=== PATIENT | female | born 1945 | race Asian ===

== ENCOUNTER → 2016-04-27 | Outpatient (CLI) | payer MEDICARE, MEDICAID ==
[~2016-04-27] MED LIST: ALL100T PO; AML5T PO; ATOR40TA52 PO; CYCL1TAB18 PO; DICL-164 PO; GABA-494 PO; HYDR-2601 PO; LOSA100T27 PO; METO-169 PO; OMEP20CA5 OR; TRAM100T19 PO
[2016-04-27 11:25] LABS: Basophils # (auto) 0 uL; Basophils % (auto) 0.7 % (0.0-2.0); Eosinophils # (auto) 0.1 uL; Eosinophils % (auto) 1.1 % (0.0-7.0); Hematocrit 33.4 % (36.0-46.0); Lymphocytes # (auto) 1.8 uL; Lymphocytes % (auto) 31.5 % (10.0-50.0); Mean Corpuscular Hemoglobin 30.8 pg (28.0-32.0); Mean Corpuscular Hgb Conc. 32.9 g/dL (32.0-36.0); Mean Corpuscular Volume 93.7 fL (80.0-100.0); Mean Platelet Volume 7.5 fL (7.4-10.4); Monocytes # (auto) 0.4 uL; Monocytes % (auto) 6.8 % (0.0-12.0); Neutrophils # (auto) 3.4 uL; Neutrophils % (auto) 59.9 % (37.0-80.0); Platelet Count (auto) 373 10^3/uL (140-450); Red Cell Distribution Width 13.6 % (11.6-16.0); SUSPECT VIEW TRANSMISSION; White Blood Cell 5.6 10^3/uL (4.4-10.8)
[2016-04-27 11:49] LABS: INR 1.04 (0.9-1.15); Partial Thromboplastin Time 30.1 sec (22.64-33.71); Prothrombin Time 10.7 sec (9.37-12.3)
[2016-04-27 11:52] LABS: Albumin 3.2 g/dL (3.4-5.0); BUN/Creatinine Ratio 44.4; Bilirubin, Total 0.2 mg/dL (0.2-1.0); Calcium 9.1 mg/dL (8.5-10.1); Potassium 3.6 mmol/L (3.5-5.1); Total Protein 8.8 g/dL (6.4-8.2)
== END | disposition home or self-care (01) ==
LOC: LAB 10:40
DX: Z01.812 Encounter for preprocedural laboratory examination (principal)
CPT/HCPCS: 36415; 80053; 85025; 85610; 85730

== ENCOUNTER → 2016-05-21 | Outpatient (CLI) | payer MEDICARE, MEDICAID ==
[2016-05-21 14:53] LABS: Basophils # (auto) 0 uL; Basophils % (auto) 0.5 % (0.0-2.0); Eosinophils # (auto) 0.1 uL; Eosinophils % (auto) 1.9 % (0.0-7.0); Hematocrit 25.2 % (36.0-46.0); Hemoglobin 8.5 g/dL (12.2-16.2); Lymphocytes # (auto) 1.8 uL; Mean Corpuscular Hemoglobin 31.8 pg (28.0-32.0); Mean Corpuscular Hgb Conc. 33.7 g/dL (32.0-36.0); Mean Corpuscular Volume 94.3 fL (80.0-100.0); Mean Platelet Volume 7.8 fL (7.4-10.4); Monocytes # (auto) 0.5 uL; Monocytes % (auto) 7.6 % (0.0-12.0); Neutrophils # (auto) 4.1 uL; Platelet Count (auto) 457 10^3/uL (140-450); Red Cell Distribution Width 14.8 % (11.6-16.0); White Blood Cell 6.6 10^3/uL (4.4-10.8)
[2016-05-21 14:58] LABS: Partial Thromboplastin Time 43.2 sec (22.64-33.71)
[2016-05-21 15:34] LABS: INR 2.6 (0.9-1.15); Prothrombin Time 26.8 sec (9.37-12.3)
== END | disposition home or self-care (01) ==
LOC: LAB 12:55
DX: Z79.01 Long term (current) use of anticoagulants (principal); Z96.659 Presence of unspecified artificial knee joint
CPT/HCPCS: 36415; 85025; 85610; 85730

== ENCOUNTER → 2016-05-28 | Outpatient (CLI) | payer MEDICARE, MEDICAID ==
[2016-05-28 15:12] LABS: Basophils # (auto) 0 uL; Basophils % (auto) 0.6 % (0.0-2.0); Eosinophils # (auto) 0.1 uL; Eosinophils % (auto) 1.1 % (0.0-7.0); Hematocrit 29.4 % (36.0-46.0); Hemoglobin 9.6 g/dL (12.2-16.2); Lymphocytes # (auto) 2.2 uL; Lymphocytes % (auto) 29.8 % (10.0-50.0); Mean Corpuscular Hemoglobin 31.3 pg (28.0-32.0); Mean Corpuscular Hgb Conc. 32.5 g/dL (32.0-36.0); Mean Corpuscular Volume 96.5 fL (80.0-100.0); Mean Platelet Volume 6.9 fL (7.4-10.4); Monocytes # (auto) 0.5 uL; Monocytes % (auto) 6.6 % (0.0-12.0); Neutrophils # (auto) 4.7 uL; Neutrophils % (auto) 61.9 % (37.0-80.0); Platelet Count (auto) 563 10^3/uL (140-450); White Blood Cell 7.5 10^3/uL (4.4-10.8)
[2016-05-28 15:31] LABS: Partial Thromboplastin Time 39.7 sec (22.64-33.71)
[2016-05-28 16:22] LABS: INR 2.03 (0.9-1.15); Prothrombin Time 20.9 sec (9.37-12.3)
== END | disposition home or self-care (01) ==
LOC: LAB 14:56
DX: Z79.01 Long term (current) use of anticoagulants (principal); Z96.659 Presence of unspecified artificial knee joint
CPT/HCPCS: 36415; 85025; 85610; 85730

== ENCOUNTER → 2016-06-04 | Outpatient (CLI) | payer MEDICARE, MEDICAID ==
[2016-06-04 16:16] LABS: Basophils # (auto) 0 uL; Basophils % (auto) 0.5 % (0.0-2.0); Eosinophils # (auto) 0.1 uL; Eosinophils % (auto) 0.7 % (0.0-7.0); Hematocrit 29.9 % (36.0-46.0); Hemoglobin 9.9 g/dL (12.2-16.2); Lymphocytes # (auto) 1.8 uL; Lymphocytes % (auto) 19.7 % (10.0-50.0); Mean Corpuscular Hemoglobin 32.3 pg (28.0-32.0); Mean Corpuscular Hgb Conc. 33.2 g/dL (32.0-36.0); Mean Corpuscular Volume 97.5 fL (80.0-100.0); Mean Platelet Volume 7.5 fL (7.4-10.4); Monocytes # (auto) 0.5 uL; Monocytes % (auto) 5.1 % (0.0-12.0); Neutrophils # (auto) 6.6 uL; Platelet Count (auto) 423 10^3/uL (140-450); Red Cell Distribution Width 16.2 % (11.6-16.0); White Blood Cell 8.9 10^3/uL (4.4-10.8)
[2016-06-04 16:55] LABS: Partial Thromboplastin Time 34.7 sec (22.64-33.71)
[2016-06-04 17:01] LABS: INR 1.24 (0.9-1.15); Prothrombin Time 12.8 sec (9.37-12.3)
== END | disposition home or self-care (01) ==
LOC: LAB 15:40
DX: Z96.659 Presence of unspecified artificial knee joint (principal); Z79.01 Long term (current) use of anticoagulants
CPT/HCPCS: 36415; 85025; 85610; 85730

== ENCOUNTER → 2016-06-11 | Outpatient (CLI) | payer MEDICARE, MEDICAID ==
[2016-06-11 15:24] LABS: Basophils # (auto) 0 uL; Basophils % (auto) 0.5 % (0.0-2.0); Eosinophils # (auto) 0.1 uL; Hematocrit 27.1 % (36.0-46.0); Hemoglobin 8.9 g/dL (12.2-16.2); Lymphocytes # (auto) 1.6 uL; Lymphocytes % (auto) 21.9 % (10.0-50.0); Mean Corpuscular Hemoglobin 31.5 pg (28.0-32.0); Mean Corpuscular Volume 95.2 fL (80.0-100.0); Mean Platelet Volume 6.9 fL (7.4-10.4); Monocytes # (auto) 0.6 uL; Monocytes % (auto) 8.8 % (0.0-12.0); Neutrophils % (auto) 67.8 % (37.0-80.0); Platelet Count (auto) 503 10^3/uL (140-450); Red Cell Distribution Width 15.9 % (11.6-16.0); White Blood Cell 7.4 10^3/uL (4.4-10.8)
[2016-06-11 15:40] LABS: Partial Thromboplastin Time 36.7 sec (22.64-33.71)
[2016-06-11 15:56] LABS: INR 1.21 (0.9-1.15); Prothrombin Time 12.5 sec (9.37-12.3)
== END | disposition home or self-care (01) ==
LOC: LAB 14:51
DX: Z96.659 Presence of unspecified artificial knee joint (principal); Z79.01 Long term (current) use of anticoagulants
CPT/HCPCS: 36415; 85025; 85610; 85730

== ENCOUNTER → 2016-07-09 | Outpatient (CLI) | payer MEDICARE, MEDICAID ==
[2016-07-09 15:40] LABS: Basophils # (auto) 0.1 uL; Basophils % (auto) 0.7 % (0.0-2.0); Eosinophils # (auto) 0 uL; Eosinophils % (auto) 0.6 % (0.0-7.0); Hematocrit 29.6 % (36.0-46.0); Hemoglobin 9.7 g/dL (12.2-16.2); Lymphocytes # (auto) 1.6 uL; Mean Corpuscular Hemoglobin 29.7 pg (28.0-32.0); Mean Corpuscular Hgb Conc. 32.7 g/dL (32.0-36.0); Mean Corpuscular Volume 90.8 fL (80.0-100.0); Mean Platelet Volume 7.5 fL (7.4-10.4); Monocytes # (auto) 0.5 uL; Monocytes % (auto) 6.3 % (0.0-12.0); Neutrophils # (auto) 5.3 uL; Neutrophils % (auto) 70.4 % (37.0-80.0); Platelet Count (auto) 457 10^3/uL (140-450); Red Cell Distribution Width 16.1 % (11.6-16.0); White Blood Cell 7.5 10^3/uL (4.4-10.8)
[2016-07-09 16:10] LABS: BUN/Creatinine Ratio 34.4; Bilirubin, Total 0.2 mg/dL (0.2-1.0); Calcium 9.4 mg/dL (8.5-10.1); Potassium 3.7 mmol/L (3.5-5.1); Total Protein 9.8 g/dL (6.4-8.2)
== END | disposition home or self-care (01) ==
LOC: LAB 15:13
DX: I10 Essential (primary) hypertension (principal); M06.9 Rheumatoid arthritis, unspecified; M25.50 Pain in unspecified joint; D64.9 Anemia, unspecified; Z79.899 Other long term (current) drug therapy
CPT/HCPCS: 36415; 80053; 85025; 85652; 86141

== ENCOUNTER → 2016-10-16 | Outpatient (CLI) | payer MEDICARE, MEDICAID ==
[~2016-10-16] MED LIST changes: -OMEP20CA5 OR; +OMEP20CA74 OR
[2016-10-16 11:12] LABS: Basophils # (auto) 0 uL; Basophils % (auto) 0.6 % (0.0-2.0); CONDITION Y; Eosinophils # (auto) 0.1 uL; Eosinophils % (auto) 1.6 % (0.0-7.0); Hematocrit 30.7 % (36.0-46.0); Hemoglobin 10.2 g/dL (12.2-16.2); Lymphocytes # (auto) 1.8 uL; Lymphocytes % (auto) 26.7 % (10.0-50.0); Mean Corpuscular Hemoglobin 31.2 pg (28.0-32.0); Mean Corpuscular Hgb Conc. 33.3 g/dL (32.0-36.0); Mean Corpuscular Volume 93.6 fL (80.0-100.0); Mean Platelet Volume 7.2 fL (7.4-10.4); Monocytes # (auto) 0.5 uL; Monocytes % (auto) 7.8 % (0.0-12.0); Neutrophils # (auto) 4.2 uL; Neutrophils % (auto) 63.3 % (37.0-80.0); Platelet Count (auto) 448 10^3/uL (140-450); Red Cell Distribution Width 15.5 % (11.6-16.0); White Blood Cell 6.6 10^3/uL (4.4-10.8)
[2016-10-16 11:40] LABS: Albumin 3.2 g/dL (3.4-5.0); BUN/Creatinine Ratio 28.4; Bilirubin, Total 0.2 mg/dL (0.2-1.0); Calcium 9.3 mg/dL (8.5-10.1); Total Protein 9.5 g/dL (6.4-8.2)
== END | disposition home or self-care (01) ==
LOC: LAB 10:50
DX: M06.9 Rheumatoid arthritis, unspecified (principal); I10 Essential (primary) hypertension; M25.50 Pain in unspecified joint; D64.9 Anemia, unspecified
CPT/HCPCS: 36415; 80053; 85025; 85652; 86141

== ENCOUNTER → 2016-12-26 | Outpatient (CLI) | payer MEDICARE, MEDICAID ==
[2016-12-26 09:28] LABS: Basophils # (auto) 0.1 uL; Basophils % (auto) 0.9 % (0.0-2.0); Eosinophils # (auto) 0 uL; Eosinophils % (auto) 0.8 % (0.0-7.0); Hematocrit 32.8 % (36.0-46.0); Lymphocytes # (auto) 1.6 uL; Lymphocytes % (auto) 26.5 % (10.0-50.0); Mean Corpuscular Hemoglobin 31.7 pg (28.0-32.0); Mean Corpuscular Hgb Conc. 33.4 g/dL (32.0-36.0); Mean Corpuscular Volume 94.8 fL (80.0-100.0); Mean Platelet Volume 7.1 fL (6.9-10.8); Monocytes # (auto) 0.3 uL; Monocytes % (auto) 5.3 % (0.0-12.0); Neutrophils % (auto) 66.5 % (37.0-80.0); Nucleated Red Blood Cells % 0.1 %; Platelet Count (auto) 314 10^3/uL (140-450); Red Cell Distribution Width 15.6 % (11.8-14.3)
[2016-12-26 09:42] LABS: Albumin 3.4 g/dL (3.4-5.0); BUN/Creatinine Ratio 30.8; Bilirubin, Total 0.3 mg/dL (0.2-1.0); Calcium 8.9 mg/dL (8.5-10.1); Potassium 3.7 mmol/L (3.5-5.1); Total Protein 8.9 g/dL (6.4-8.2)
== END | disposition home or self-care (01) ==
LOC: LAB 08:45
DX: Z13.0 Encounter for screening for diseases of the blood and blood-forming organs and certain disorders involving the immune mechanism (principal); R73.09 Other abnormal glucose; E03.9 Hypothyroidism, unspecified
CPT/HCPCS: 36415; 80053; 80061; 83036; 84439; 84443; 85025

== ENCOUNTER → 2017-04-09 | Outpatient (CLI) | payer MEDICARE, MEDICAID ==
[~2017-04-09] MED LIST changes: -GABA-494 PO; +GABA100C9 PO
[2017-04-09 09:56] LABS: Basophils # (auto) 0.1 uL; Basophils % (auto) 1.2 % (0.0-2.0); Eosinophils # (auto) 0.1 uL; Eosinophils % (auto) 1.2 % (0.0-7.0); Hematocrit 35.3 % (36.0-46.0); Hemoglobin 11.9 g/dL (12.2-16.2); Lymphocytes # (auto) 1.3 uL; Lymphocytes % (auto) 26.5 % (10.0-50.0); Mean Corpuscular Hemoglobin 32.9 pg (28.0-32.0); Mean Corpuscular Hgb Conc. 33.6 g/dL (32.0-36.0); Mean Corpuscular Volume 97.8 fL (80.0-100.0); Monocytes # (auto) 0.3 uL; Monocytes % (auto) 6.3 % (0.0-12.0); Neutrophils # (auto) 3.2 uL; Neutrophils % (auto) 64.8 % (37.0-80.0); Platelet Count (auto) 333 10^3/uL (140-450); Red Blood Cells 3.61 10^6/uL (4.0-5.20); Red Cell Distribution Width 15.3 % (11.8-14.3); White Blood Cell 4.9 10^3/uL (4.4-10.8)
[2017-04-09 10:42] LABS: Albumin 3.7 g/dL (3.4-5.0); Bilirubin, Direct 0.1 mg/dL (0-0.2); Bilirubin, Total 0.6 mg/dL (0.2-1.0); Total Protein 8.4 g/dL (6.4-8.2)
[2017-04-09 11:08] LABS: Ferritin 91.2 ng/mL (10-322); Free T4 (Free Thyroxine) 1.06 ng/dL (0.89-1.76)
== END | disposition home or self-care (01) ==
LOC: LAB 08:54
DX: Z00.01 Encounter for general adult medical examination with abnormal findings (principal); Z12.9 Encounter for screening for malignant neoplasm, site unspecified; Z13.0 Encounter for screening for diseases of the blood and blood-forming organs and certain disorders involving the immune mechanism; I10 Essential (primary) hypertension
CPT/HCPCS: 36415; 80076; 82728; 83540; 83550; 84439; 84443; 85025

== ENCOUNTER → 2017-04-30 | Outpatient (CLI) | payer MEDICARE, MEDICAID ==
[2017-04-30 09:53] LABS: Urine WBC None Seen /hpf (0 - 5)
[2017-04-30 10:48] LABS: Albumin 3.5 g/dL (3.4-5.0); BUN/Creatinine Ratio 23.4; Bilirubin, Total 0.8 mg/dL (0.2-1.0); Calcium 9.1 mg/dL (8.5-10.1); Potassium 3.4 mmol/L (3.5-5.1); Total Protein 8.6 g/dL (6.4-8.2)
[2017-04-30 11:15] LABS: Urine Bacteria NONE SEEN /hpf (None Seen); Urine Blood 1+ /uL (Negative); Urine Specific Gravity 1.002 (1.001-1.035)
== END | disposition home or self-care (01) ==
LOC: LAB 09:25
DX: E78.00 Pure hypercholesterolemia, unspecified (principal); R19.5 Other fecal abnormalities; N39.0 Urinary tract infection, site not specified
CPT/HCPCS: 36415; 80053; 80061; 81001

== ENCOUNTER → 2017-06-03 | Outpatient (CLI) | payer MEDICARE, MEDICAID ==
[2017-06-03 16:29] LABS: Albumin 3.2 g/dL (3.4-5.0); Calcium 9.8 mg/dL (8.5-10.1); Potassium 4.5 mmol/L (3.5-5.1)
[2017-06-03 16:31] LABS: Bilirubin, Total 0.3 mg/dL (0.2-1.0); Total Protein 8.8 g/dL (6.4-8.2)
== END | disposition home or self-care (01) ==
LOC: LAB 15:51
DX: E87.6 Hypokalemia (principal)
CPT/HCPCS: 36415; 80053

== ENCOUNTER 2022-09-23 15:33 | Emergency (ER) | payer MEDICAID, MEDICARE ==
[~2022-09-23] VITALS: Ht 144.8 cm; Wt 50.2 kg
[~2022-09-23 15:33] MED LIST changes: +CYCL-839 PO; -CYCL1TAB18 PO; -DICL-164 PO; +DICL75TA4 PO; +GABA-1308 PO; -GABA100C9 PO; -LOSA100T27 PO; +LOSA100T58 PO; -METO-169 PO; +METO-289 PO; -TRAM100T19 PO; +TRAM100T36 PO
[2022-09-23] MEDS ORDERED: OXYMETAZOLINE HCL 0.05 % NASAL SPRAY 15ML ONE ×2 (15:52→16:15)
[2022-09-23] MEDS ORDERED: cloNIDine HCL 0.1 MG TAB PO ONE (16:15)
[2022-09-23 17:15] LABS: Albumin 2.6 g/dL (3.4-5.0); Calcium 8.4 mg/dL (8.5-10.1); Potassium 4.9 mmol/L (3.5-5.1)
[2022-09-23 17:18] LABS: BUN/Creatinine Ratio 21.5 (10.0-20.0); Bilirubin, Total 0.4 mg/dL (0.2-1.0); Total Protein 8.8 g/dL (6.4-8.2)
[2022-09-23 17:50] VITALS: BP 170/98
== END 2022-09-23 17:51 | disposition home or self-care (01) ==
LOC: ER 15:33
DX: R04.0 Epistaxis (principal); K21.9 Gastro-esophageal reflux disease without esophagitis; E78.5 Hyperlipidemia, unspecified; I10 Essential (primary) hypertension; Z86.73 Personal history of transient ischemic attack (TIA), and cerebral infarction without residual deficits
CPT/HCPCS: 36415; 80053; 84484

== ENCOUNTER 2023-09-24 08:58 | Inpatient (IN) | payer MEDICARE, MEDICAID ==
[~2023-09-24] VITALS: Ht 152.4 cm; Wt 54.1 kg
[~2023-09-24 08:58] MED LIST changes: +LOSA-535 PO; -LOSA100T58 PO
[2023-09-24] MEDS: MORPHINE SULFATE INJ 2 MG/ml SYRG IV ONE (10:21)
[2023-09-24] MEDS: ONDANSETRON HCL 4 MG/2 ML VIAL IV ONE (10:21)
[2023-09-24 10:27] VITALS: PULSE 85; RESP 28; O2SAT 98
[2023-09-24 10:39] LABS: Basophils # (auto) 0 10 ^3/uL (0-0.2); Basophils % (auto) 0.5 % (0.0-2.0); Eosinophils # (auto) 0 10 ^3/uL (0-0.8); Eosinophils % (auto) 0.2 % (0.0-7.0); Hematocrit 31.3 % (36.0-46.0); Hemoglobin 9.8 g/dL (12.2-16.2); Lymphocytes # (auto) 1.6 10 ^3/uL (0.4-5.4); Lymphocytes % (auto) 18.3 % (10.0-50.0); Mean Corpuscular Hemoglobin 30.4 pg (28.0-32.0); Mean Corpuscular Hgb Conc. 31.4 g/dL (32.0-36.0); Mean Corpuscular Volume 96.7 fL (80.0-100.0); Monocytes # (auto) 0.4 10 ^3/uL (0-1.3); Monocytes % (auto) 4.1 % (0.0-12.0); Neutrophils # (auto) 6.7 10 ^3/uL (1.6-8.6); Neutrophils % (auto) 76.9 % (37.0-80.0); Nucleated Red Blood Cells % 0.2 %; Red Blood Cells 3.23 10^6/uL (4.0-5.20); White Blood Cell 8.8 10^3/uL (4.4-10.8)
[2023-09-24 10:41] LABS: Red Cell Distribution Width 25.3 % (11.8-14.3)
[2023-09-24 10:56] LABS: Alanine Aminotransferase 11 U/L (7-40); Albumin 4.2 g/dL (3.2-4.8); Alkaline Phosphatase 132 U/L (46-116); Anion Gap 12 (5-15); Aspartate Aminotransferase 19 U/L (13-40); BUN/Creatinine Ratio 22.6 (10.0-20.0); Bilirubin, Total 1.7 mg/dL (0.2-1.0); Blood Urea Nitrogen 21 mg/dL (9-23); Carbon Dioxide 20 mmol/L (20-30); Chloride 115 mmol/L (98-107); Glucose 107 mg/dL (74-106); Potassium 3.4 mmol/L (3.5-5.1); Sodium 147 mmol/L (136-145); Total Protein 8.1 g/dL (5.7-8.2)
[2023-09-24] MEDS: SODIUM CHLORIDE 0.9% 500 ML IV ONE (11:04)
[2023-09-24 12:38] LABS: Urine Blood 2+ /uL (Negative); Urine Clarity Turbid (Clear); Urine Color Light-Yellow (Yellow); Urine Protein, UAD 3+ (Negative); Urine Specific Gravity 1.013 (1.001-1.035); Urine Urobilinogen Normal (Negative)
[2023-09-24] MEDS: ACETAMINOPHEN 650 MG RECT SUPP PR ONE (16:09)
[2023-09-24] MEDS ORDERED: GABA250S7 PO (16:20)
[2023-09-24] MEDS ORDERED: METO25TA93 PO (16:20)
[2023-09-24] MEDS ORDERED: APIX5TAB PO (16:20)
[2023-09-24] MEDS ORDERED: SILD20TA PO (16:20)
[2023-09-24] MEDS ORDERED: AMLO1TAB22 PO (16:20)
[2023-09-24] MEDS ORDERED: ATOR20TA PO (16:20)
[2023-09-24] MEDS ORDERED: ACETAMINOPHEN 325 MG TAB PO PRN (17:15)
[2023-09-24] MEDS ORDERED: IPRATROPIUM BROM 0.5 MG/2.5ML INH SOL NEB PRN (17:15)
[2023-09-24] MEDS ORDERED: MORPHINE SULFATE INJ 2 MG/ml SYRG IV PRN ×2 (17:15)
[2023-09-24] MEDS ORDERED: NITROGLYCERIN 0.4 MG SL TAB SL PRN (17:15)
[2023-09-24] MEDS ORDERED: ONDANSETRON HCL 4 MG/2 ML VIAL IV PRN (17:15)
[2023-09-24] MEDS: FUROSEMIDE 40 MG/4 ML VIAL IV SCH (17:15)
[2023-09-24] MEDS ORDERED: AZITHROMYCIN 500MG/ 250ML 250 ML IV SCH (17:15)
[2023-09-24 19:16] VITALS: O2SAT 100
[2023-09-24 21:00] VITALS: BP 127/42; PULSE 59; RESP 19; TEMP 97.6; O2SAT 100
[2023-09-24 21:15] VITALS: BP 153/59; PULSE 56; RESP 15; TEMP 98.7; O2SAT 100
[2023-09-24] MEDS: ATORVASTATIN 20 MG TAB PO SCH (21:43)
[2023-09-24] MEDS: APIXABAN 5 MG TAB PO SCH (21:43)
[2023-09-24] MEDS: SILDENAFIL CITRATE 20 MG TAB PO SCH (21:43)
[2023-09-24] MEDS: HYDROcodone-ACET 5/325MG TAB PO PRN (21:56)
[2023-09-24 22:35] VITALS: BP 111/49; PULSE 81; RESP 15; TEMP 97.9; O2SAT 97
[2023-09-24] MEDS: TEMAZEPAM 15 MG CAP PO PRN (22:58)
[2023-09-25] VITALS (10 sets, daily range): BP systolic 112–138; BP diastolic 45–62; PULSE 34–84; RESP 16–18; TEMP 96.2–97.9; O2SAT 93–99
[2023-09-25] MEDS ORDERED: ATOR40TA52 PO (09:22)
[2023-09-25] MEDS ORDERED: FURO40TA4 PO (09:29)
[2023-09-25] MEDS ORDERED: POTA-36 PO (09:29)
[2023-09-25] MEDS ORDERED: GABA-1308 PO (09:29)
[2023-09-25] MEDS ORDERED: LOSA-534 PO (09:29)
[2023-09-25] MEDS ORDERED: METO25TA93 PO (09:29)
[2023-09-25] MEDS: METOPROLOL SUCCINATE XL 50 MG TAB PO SCH (10:00)
[2023-09-25] MEDS: POTASSIUM CHL 20 Meq TABLET PO ONE ×2 (10:15→13:31)
[2023-09-25] MEDS: PANTOPRAZOLE 40 MG TAB PO SCH (11:40)
[2023-09-25] MEDS: amLODIPine BESYLATE 5 MG TAB PO SCH (11:40)
[2023-09-25] MEDS: SODIUM CHLORIDE 0.9% 500 ML IV ONE (11:58)
[2023-09-25] MEDS: APIXABAN 5 MG TAB PO SCH (13:31)
[2023-09-25] MEDS: SODIUM CHLORIDE 0.9% 1,000 ML IV SCH (13:35)
[2023-09-25] MEDS ORDERED: VANCOMYCIN PER PHARMACY 0 MG IV SCH (14:45)
[2023-09-25] MEDS: VANCOMYCIN 750mg/150ml 150 ML IV ONE (15:44)
[2023-09-25] MEDS ORDERED: TPN PER PHARMACY 0 ML IV SCH (16:15)
[2023-09-25] MEDS ORDERED: DEXTROSE (50%) 50ML SYRG IV SCH (17:00)
[2023-09-25] MEDS: InsuLIN REG 1unit/0.01ml Soln (100units/ml) SC SCH (18:00)
[2023-09-25] MEDS: ACCU-CHEK COMFORT CURVE STRIP VI SCH (18:00)
[2023-09-25] MEDS: AMINO ACID INFUSION IN D10W 2,000 ML IV NR (20:00)
[2023-09-25] MEDS ORDERED: AMINO ACID INFUSION IN D10W 1,000 ML IV ONE (20:00)
[2023-09-26] VITALS (10 sets, daily range): BP systolic 102–143; BP diastolic 33–55; PULSE 47–72; RESP 16–20; TEMP 97.4–97.8; O2SAT 94–99
[2023-09-26 06:15] LABS: Albumin 2.6 g/dL (3.2-4.8); Alkaline Phosphatase 82 U/L (46-116); Anion Gap 10 (5-15); Aspartate Aminotransferase 21 U/L (13-40); BUN/Creatinine Ratio 21.1 (10.0-20.0); Bilirubin, Total 0.4 mg/dL (0.2-1.0); Blood Urea Nitrogen 19 mg/dL (9-23); Calcium 8.1 mg/dL (8.5-10.1); Carbon Dioxide 18 mmol/L (20-30); Chloride 114 mmol/L (98-107); Glucose 82 mg/dL (74-106); Phosphorus 2.8 mg/dL (2.4-5.1); Potassium 3.7 mmol/L (3.5-5.1); Sodium 142 mmol/L (136-145); Total Protein 5.5 g/dL (5.7-8.2); Triglycerides 74 mg/dL (< 150)
[2023-09-26 06:16] LABS: Alanine Aminotransferase < 9 U/L (7-40)
[2023-09-26 06:18] LABS: Folate (Folic Acid) 8.89 ng/mL (>5.38)
[2023-09-26 06:19] LABS: Free T4 (Free Thyroxine) 0.89 ng/dL (0.89-1.76)
[2023-09-26] MEDS: VANCOMYCIN 750mg/150ml 150 ML IV SCH (08:07)
[2023-09-26 15:01] LABS: INR 1.25 (0.9-1.15); Partial Thromboplastin Time 37.8 SEC (24.5-34.5)
[2023-09-26] MEDS: LIDOCAINE 1% (LOCAL ANESTH.) PF 5ml SDV ID ONE (17:30)
[2023-09-26] MEDS: PPN PER PHARMACY IV NR (20:42)
[2023-09-26] MEDS: SODIUM CHLOR 0.9% PF (SALINE LOCK) 10ML VIAL/SYR IV SCH (21:18)
[2023-09-27] VITALS (10 sets, daily range): BP systolic 99–148; BP diastolic 38–64; PULSE 58–84; RESP 16–20; TEMP 97.3–98.6; O2SAT 93–97
[2023-09-27 06:30] LABS: Alanine Aminotransferase < 9 U/L (7-40); Albumin 2.8 g/dL (3.2-4.8); Alkaline Phosphatase 79 U/L (46-116); Anion Gap 8 (5-15); Aspartate Aminotransferase 22 U/L (13-40); BUN/Creatinine Ratio 29.6 (10.0-20.0); Bilirubin, Total 0.3 mg/dL (0.2-1.0); Blood Urea Nitrogen 24 mg/dL (9-23); Calcium 8.3 mg/dL (8.5-10.1); Carbon Dioxide 20 mmol/L (20-30); Chloride 111 mmol/L (98-107); Glucose 100 mg/dL (74-106); Magnesium 1.8 mg/dL (1.6-2.6); Potassium 3.5 mmol/L (3.5-5.1); Sodium 139 mmol/L (136-145); Total Protein 5.6 g/dL (5.7-8.2)
[2023-09-27] MEDS: MAGNESIUM SULFATE 1GM/100ML 100 ML IV ONE (14:45)
[2023-09-27] MEDS: POTASSIUM PHOSPHATE 33 MEQ in D5W 5% 250 ML IV ONE (16:55)
[2023-09-27] MEDS: AMINO ACID INFUSION IN D10W 2,000 ML IV NR (20:19)
[2023-09-28 01:25] VITALS: BP 147/52; PULSE 97; RESP 20; TEMP 97.6; O2SAT 96
[2023-09-28 05:00] VITALS: BP 154/55; PULSE 65; RESP 18; TEMP 98.9; O2SAT 98
[2023-09-28 05:55] LABS: Alkaline Phosphatase 96 U/L (46-116); Anion Gap 8 (5-15); Aspartate Aminotransferase 17 U/L (13-40); BUN/Creatinine Ratio 41.5 (10.0-20.0); Blood Urea Nitrogen 27 mg/dL (9-23); Calcium 8.5 mg/dL (8.5-10.1); Carbon Dioxide 23 mmol/L (20-30); Chloride 109 mmol/L (98-107); Glucose 111 mg/dL (74-106); Magnesium 1.7 mg/dL (1.6-2.6); Potassium 3.3 mmol/L (3.5-5.1); Sodium 140 mmol/L (136-145)
[2023-09-28 05:56] LABS: Bilirubin, Total 0.5 mg/dL (0.2-1.0); Phosphorus 2.6 mg/dL (2.4-5.1); Total Protein 5.9 g/dL (5.7-8.2)
[2023-09-28 05:57] LABS: Alanine Aminotransferase < 9 U/L (7-40)
[2023-09-28 06:01] LABS: Albumin 3.1 g/dL (3.2-4.8)
[2023-09-28 07:30] VITALS: PULSE 73
[2023-09-28 08:34] VITALS: BP 135/51; PULSE 78; RESP 19; TEMP 97.9; O2SAT 94
[2023-09-28 12:39] VITALS: BP 151/42; PULSE 76; RESP 17; TEMP 98.2; O2SAT 94
[2023-09-28] MEDS: MAGNESIUM SULFATE 1GM/100ML 100 ML IV ONE (13:41)
[2023-09-28] MEDS: POTASSIUM PHOSPHATE 44 MEQ in D5W 5% 250 ML IV ONE (13:45)
[2023-09-28] MEDS: POTASSIUM CHL 20 Meq TABLET PO ONE (13:52)
[2023-09-28 16:39] VITALS: BP 147/112; PULSE 70; RESP 18; TEMP 98.4; O2SAT 96
[2023-09-28] MEDS ORDERED: AMINO ACID INFUSION IN D10W 1,000 ML IV NR (20:00)
== END 2023-09-28 20:20 | disposition home health service (06) | DRG 871 ==
LOC: EDBD 08:58 → ER 08:58 → TELE 17:15 → TELE-WESTW 22:41
PROVIDERS: ADMIT Nurse Practitioner; ATTEND Nurse Practitioner
PROC: 02HV33Z Insertion of Infusion Device into Superior Vena Cava, Percutaneous Approach (ICD-10-PCS; principal; 2023-09-26)
PROC: B548ZZA Ultrasonography of Superior Vena Cava, Guidance (ICD-10-PCS; 2023-09-26)
DX: A41.1 Sepsis due to other specified staphylococcus (principal); G93.41 Metabolic encephalopathy; I50.33 Acute on chronic diastolic (congestive) heart failure; J15.20 Pneumonia due to staphylococcus, unspecified; I48.19 Other persistent atrial fibrillation; E87.20 Acidosis, unspecified; R64 Cachexia; Z68.1 Body mass index [BMI] 19.9 or less, adult; I31.39 Other pericardial effusion (noninflammatory); E46 Unspecified protein-calorie malnutrition; M84.431A Pathological fracture, right ulna, initial encounter for fracture; I11.0 Hypertensive heart disease with heart failure; I27.20 Pulmonary hypertension, unspecified; R56.9 Unspecified convulsions; E78.5 Hyperlipidemia, unspecified; M10.9 Gout, unspecified; R62.7 Adult failure to thrive; K21.9 Gastro-esophageal reflux disease without esophagitis; I08.1 Rheumatic disorders of both mitral and tricuspid valves; E86.0 Dehydration; M06.9 Rheumatoid arthritis, unspecified; Z96.653 Presence of artificial knee joint, bilateral; Z86.73 Personal history of transient ischemic attack (TIA), and cerebral infarction without residual deficits; Z99.3 Dependence on wheelchair; Z79.899 Other long term (current) drug therapy; Z79.01 Long term (current) use of anticoagulants; Z91.199 Patient's noncompliance with other medical treatment and regimen due to unspecified reason; G93.89 Other specified disorders of brain
CPT/HCPCS: 36415; 36569; 70450; 70551; 71045; 73090; 80053; 80202; 81003; 82607; 82746; 82962; 83605; 83735; 83880; 84100; 84439; 84443; 84478; 84484; 85025; 85610; 85730; 87040; 87077; 87186; 93005; 93306; 97110; 97116; 97163; 97530; G0378; J1815; J2405; J7060

== ENCOUNTER 2023-11-01 18:46 | Inpatient (IN) | payer MEDICARE, MEDICAID ==
[~2023-11-01] VITALS: Ht 144.8 cm; Wt 46.7 kg
[~2023-11-01 18:46] MED LIST changes: -ALL100T PO; +APIX2.5T PO; +APIX5TAB PO; -CYCL-839 PO; -DICL75TA4 PO; +FURO40TA4 PO; +GABA-1250 PO; -HYDR-2601 PO; +LOSA-534 PO; -LOSA-535 PO; -METO-289 PO; +METO25TA93 PO; -OMEP20CA74 OR; +POTA-36 PO; +SILD20TA PO; -TRAM100T36 PO
[2023-11-01 19:44] LABS: Basophils # (auto) 0.1 10 ^3/uL (0-0.2); Eosinophils # (auto) 0.1 10 ^3/uL (0-0.8); Lymphocytes # (auto) 1.5 10 ^3/uL (0.4-5.4); Monocytes # (auto) 0.4 10 ^3/uL (0-1.3); Monocytes % (auto) 9.1 % (0.0-12.0); Red Blood Cells 2.35 10^6/uL (4.0-5.20); White Blood Cell 4.6 10^3/uL (4.4-10.8)
[2023-11-01 19:46] LABS: Basophils % (auto) 1.5 % (0.0-2.0); Eosinophils % (auto) 2.9 % (0.0-7.0); Hemoglobin 7.7 g/dL (12.2-16.2); Lymphocytes % (auto) 31.6 % (10.0-50.0); Mean Corpuscular Hemoglobin 32.6 pg (28.0-32.0); Mean Corpuscular Volume 101.7 fL (80.0-100.0); Neutrophils # (auto) 2.6 10 ^3/uL (1.6-8.6); Neutrophils % (auto) 54.9 % (37.0-80.0); Nucleated Red Blood Cells % 0.1 %
[2023-11-01 19:53] LABS: Red Cell Distribution Width 20.5 % (11.8-14.3)
[2023-11-01 20:00] LABS: Alanine Aminotransferase 12 U/L (7-40); Albumin 3.4 g/dL (3.2-4.8); Alkaline Phosphatase 123 U/L (46-116); Anion Gap 9 (5-15); Aspartate Aminotransferase 22 U/L (13-40); Bilirubin, Total 0.6 mg/dL (0.2-1.0); Blood Urea Nitrogen 13 mg/dL (9-23); Calcium 9.4 mg/dL (8.7-10.4); Carbon Dioxide 20 mmol/L (20-30); Chloride 115 mmol/L (98-107); Glucose 94 mg/dL (74-106); Lipase 26 U/L (12-53); Potassium 3.9 mmol/L (3.5-5.1); Sodium 144 mmol/L (136-145)
[2023-11-01 20:01] LABS: Total Protein 7.5 g/dL (5.7-8.2)
[2023-11-01] MEDS: MORPHINE SULFATE 4 MG/ML SYR/VIAL IV ONE (21:30)
[2023-11-01] MEDS: ONDANSETRON HCL 4 MG/2 ML VIAL IV ONE (21:30)
[2023-11-01] MEDS ORDERED: MORPHINE SULFATE INJ 2 MG/ml SYRG IV PRN ×2 (22:00)
[2023-11-01] MEDS ORDERED: ONDANSETRON HCL 4 MG/2 ML VIAL IV PRN (22:00)
[2023-11-01] MEDS ORDERED: ACETAMINOPHEN 325 MG TAB PO PRN (22:00)
[2023-11-01] MEDS ORDERED: NITROGLYCERIN 0.4 MG SL TAB SL PRN (22:00)
[2023-11-01] MEDS: ASPirin 81 mg TAB PO ONE (22:06)
[2023-11-01] MEDS: ASCORBIC ACID 500 MG TAB PO SCH (22:45)
[2023-11-02] VITALS (8 sets, daily range): BP systolic 159–182; BP diastolic 68–88; PULSE 62–92; RESP 17–22; TEMP 97.5–99.3; O2SAT 93–96
[2023-11-02 00:40] LABS: Urine Bacteria None Seen /hpf (None Seen)
[2023-11-02 00:53] LABS: Urine Blood TRACE /uL (Negative); Urine Clarity Clear (Clear); Urine Color Light-Yellow (Yellow); Urine Hyaline Cast FEW /lpf (0 - 2); Urine Mucus FEW (None Seen); Urine Protein, UAD 2+ (Negative); Urine Specific Gravity 1.013 (1.001-1.035); Urine Urobilinogen Normal (Negative); Urine WBC 3 /hpf (0 - 5)
[2023-11-02] MEDS: HYDROcodone-ACET 5/325MG TAB PO PRN (04:47)
[2023-11-02 07:55] LABS: Alanine Aminotransferase 12 U/L (7-40); Albumin 3.4 g/dL (3.2-4.8); Alkaline Phosphatase 119 U/L (46-116); Anion Gap 9 (5-15); BUN/Creatinine Ratio 19.2 (10.0-20.0); Blood Urea Nitrogen 14 mg/dL (9-23); Calcium 9.4 mg/dL (8.7-10.4); Carbon Dioxide 21 mmol/L (20-30); Chloride 115 mmol/L (98-107); Glucose 108 mg/dL (74-106); Potassium 3.6 mmol/L (3.5-5.1); Sodium 145 mmol/L (136-145)
[2023-11-02 07:56] LABS: Aspartate Aminotransferase 19 U/L (13-40); Bilirubin, Total 0.8 mg/dL (0.2-1.0)
[2023-11-02 07:59] LABS: Basophils # (auto) 0.1 10 ^3/uL (0-0.2); Basophils % (auto) 1.4 % (0.0-2.0); Eosinophils # (auto) 0.1 10 ^3/uL (0-0.8); Eosinophils % (auto) 2.2 % (0.0-7.0); Hematocrit 22.8 % (36.0-46.0); Hemoglobin 7.4 g/dL (12.2-16.2); Lymphocytes # (auto) 0.9 10 ^3/uL (0.4-5.4); Lymphocytes % (auto) 23.2 % (10.0-50.0); Mean Corpuscular Hemoglobin 33.2 pg (28.0-32.0); Mean Corpuscular Hgb Conc. 32.5 g/dL (32.0-36.0); Mean Corpuscular Volume 101.9 fL (80.0-100.0); Monocytes # (auto) 0.3 10 ^3/uL (0-1.3); Monocytes % (auto) 7.8 % (0.0-12.0); Neutrophils # (auto) 2.5 10 ^3/uL (1.6-8.6); Neutrophils % (auto) 65.4 % (37.0-80.0); Nucleated Red Blood Cells % 0.1 %; Red Blood Cells 2.23 10^6/uL (4.0-5.20); White Blood Cell 3.9 10^3/uL (4.4-10.8)
[2023-11-02 08:02] LABS: Red Cell Distribution Width 20.3 % (11.8-14.3)
[2023-11-02] MEDS: MULTIPLE VITAMIN TAB PO SCH (12:42)
[2023-11-02] MEDS: ZINC SULFATE 220mg CAP or TAB PO SCH (12:42)
[2023-11-02] MEDS ORDERED: DEXTROSE (50%) 50ML SYRG IV PRN (13:45)
[2023-11-02] MEDS: SILDENAFIL CITRATE 20 MG TAB PO SCH (17:09)
[2023-11-02] MEDS: POTASSIUM CHL 10 Meq TABLET PO SCH (17:10)
[2023-11-02] MEDS ORDERED: LORazepam 2MG/ML-1ML VIAL IM PRN (17:45)
[2023-11-02] MEDS: InsuLIN REG 1unit/0.01ml Soln (100units/ml) SC SCH (18:00)
[2023-11-02] MEDS: ACCU-CHEK COMFORT CURVE STRIP VI SCH (18:00)
[2023-11-02 21:22] LABS: INR 1.25 (0.9-1.15)
[2023-11-02] MEDS: GABAPENTIN 300 MG CAP PO SCH (22:00)
[2023-11-02] MEDS: amLODIPine BESYLATE 5 MG TAB PO SCH (22:01)
[2023-11-02] MEDS: APIXABAN 2.5 MG TAB PO SCH (22:02)
[2023-11-03] VITALS (8 sets, daily range): BP systolic 130–140; BP diastolic 48–70; PULSE 61–86; RESP 16–20; TEMP 98–98.3; O2SAT 96–98
[2023-11-03] MEDS ORDERED: POLYETHYLENE GLYCOL 17 GM PWDR PO PRN (08:15)
[2023-11-03] MEDS: ATORVASTATIN 20 MG TAB PO SCH (09:16)
[2023-11-03] MEDS: PANTOPRAZOLE 40 MG TAB PO ONE (09:16)
[2023-11-03] MEDS: METOPROLOL SUCCINATE XL 50 MG TAB PO SCH (09:19)
[2023-11-03] MEDS: FUROSEMIDE 40 MG TAB PO SCH (09:19)
[2023-11-03] MEDS: LOSARTAN POTASSIUM 50 MG TAB PO SCH (09:20)
[2023-11-03 10:59] LABS: Basophils # (auto) 0.1 10 ^3/uL (0-0.2); Basophils % (auto) 0.7 % (0.0-2.0); Eosinophils # (auto) 0.1 10 ^3/uL (0-0.8); Eosinophils % (auto) 0.7 % (0.0-7.0); Hematocrit 27.3 % (36.0-46.0); Hemoglobin 8.6 g/dL (12.2-16.2); Lymphocytes # (auto) 1.6 10 ^3/uL (0.4-5.4); Lymphocytes % (auto) 14.6 % (10.0-50.0); Mean Corpuscular Hgb Conc. 31.3 g/dL (32.0-36.0); Monocytes # (auto) 0.6 10 ^3/uL (0-1.3); Monocytes % (auto) 5.1 % (0.0-12.0); Neutrophils # (auto) 8.8 10 ^3/uL (1.6-8.6); Neutrophils % (auto) 78.9 % (37.0-80.0); Red Blood Cells 2.68 10^6/uL (4.0-5.20); White Blood Cell 11.2 10^3/uL (4.4-10.8)
[2023-11-03 11:22] LABS: Alanine Aminotransferase 13 U/L (7-40); Albumin 3.6 g/dL (3.2-4.8); Alkaline Phosphatase 128 U/L (46-116); Anion Gap 12 (5-15); Aspartate Aminotransferase 21 U/L (13-40); BUN/Creatinine Ratio 15.4 (10.0-20.0); Bilirubin, Total 0.7 mg/dL (0.2-1.0); Blood Urea Nitrogen 14 mg/dL (9-23); Calcium 9.5 mg/dL (8.7-10.4); Carbon Dioxide 17 mmol/L (20-30); Chloride 116 mmol/L (98-107); Glucose 121 mg/dL (74-106); Potassium 4.1 mmol/L (3.5-5.1); Sodium 145 mmol/L (136-145)
[2023-11-03 11:37] LABS: Macrocytosis Slight; Ovalocytes FEW; Platelet Estimate Adequate
[2023-11-04] VITALS (8 sets, daily range): BP systolic 117–139; BP diastolic 51–68; PULSE 54–83; RESP 17–20; TEMP 97.9–98.4; O2SAT 96–100
[2023-11-04] MEDS: PANTOPRAZOLE 40 MG TAB PO SCH (05:37)
[2023-11-04 06:09] LABS: Alanine Aminotransferase 10 U/L (7-40); Albumin 3.2 g/dL (3.2-4.8); Alkaline Phosphatase 115 U/L (46-116); Anion Gap 8 (5-15); Aspartate Aminotransferase 16 U/L (13-40); BUN/Creatinine Ratio 12.7 (10.0-20.0); Bilirubin, Total 0.9 mg/dL (0.2-1.0); Blood Urea Nitrogen 10 mg/dL (9-23); Calcium 9.2 mg/dL (8.7-10.4); Carbon Dioxide 22 mmol/L (20-30); Chloride 114 mmol/L (98-107); Glucose 97 mg/dL (74-106); Potassium 3.7 mmol/L (3.5-5.1); Sodium 144 mmol/L (136-145); Total Protein 6.8 g/dL (5.7-8.2)
[2023-11-04 06:24] LABS: Basophils # (auto) 0 10 ^3/uL (0-0.2); Hemoglobin 7.2 g/dL (12.2-16.2); Mean Corpuscular Volume 104.9 fL (80.0-100.0)
[2023-11-04 06:27] LABS: Basophils % (auto) 0.3 % (0.0-2.0); Eosinophils # (auto) 0.1 10 ^3/uL (0-0.8); Eosinophils % (auto) 1.7 % (0.0-7.0); Lymphocytes # (auto) 1.1 10 ^3/uL (0.4-5.4); Lymphocytes % (auto) 12.5 % (10.0-50.0); Mean Corpuscular Hgb Conc. 31.4 g/dL (32.0-36.0); Monocytes # (auto) 0.7 10 ^3/uL (0-1.3); Monocytes % (auto) 8.2 % (0.0-12.0); Neutrophils # (auto) 6.8 10 ^3/uL (1.6-8.6); Neutrophils % (auto) 77.3 % (37.0-80.0); Red Blood Cells 2.19 10^6/uL (4.0-5.20); White Blood Cell 8.8 10^3/uL (4.4-10.8)
[2023-11-04 11:08] LABS: Folate (Folic Acid) 9.09 ng/mL (>5.38)
[2023-11-04] MEDS: FUROSEMIDE 40 MG/4 ML VIAL IV SCH (16:00)
[2023-11-05] VITALS (7 sets, daily range): BP systolic 118–153; BP diastolic 49–59; PULSE 59–77; RESP 16–20; TEMP 97.6–98; O2SAT 92–100
[2023-11-05] MEDS: FUROSEMIDE 20 MG TAB PO ONE (14:29)
[2023-11-05] MEDS: DOCUSATE SOD 100 MG CAP PO PRN (14:29)
[2023-11-05] MEDS: LINEZOLID 600MG TABLET PO SCH (14:34)
[2023-11-06] VITALS (8 sets, daily range): BP systolic 120–148; BP diastolic 37–62; PULSE 60–79; RESP 17–21; TEMP 97.4–98.9; O2SAT 93–100
[2023-11-06] MEDS: LOSARTAN POTASSIUM 50 MG TAB PO SCH (10:42)
[2023-11-06] MEDS: FUROSEMIDE 20 MG TAB PO SCH (10:42)
[2023-11-06 12:12] LABS: Chloride 108 mmol/L (98-107); Potassium 4.1 mmol/L (3.5-5.1); Sodium 140 mmol/L (136-145)
[2023-11-06 12:13] LABS: Anion Gap 6 (5-15); Calcium 8.6 mg/dL (8.7-10.4); Carbon Dioxide 26 mmol/L (20-30)
[2023-11-06 12:18] LABS: BUN/Creatinine Ratio 14.1 (10.0-20.0); Blood Urea Nitrogen 11 mg/dL (9-23); Glucose 142 mg/dL (74-106)
[2023-11-06 12:19] LABS: Magnesium 1.7 mg/dL (1.6-2.6)
[2023-11-07 01:12] VITALS: BP 114/45; PULSE 69; RESP 22; TEMP 97.9; O2SAT 99
[2023-11-07 05:00] VITALS: BP 122/59; PULSE 74; RESP 18; TEMP 97.9; O2SAT 100
[2023-11-07 08:00] VITALS: PULSE 67; RESP 17; O2SAT 97
[2023-11-07 08:02] LABS: Anion Gap 6 (5-15); Carbon Dioxide 26 mmol/L (20-30); Chloride 109 mmol/L (98-107); Potassium 3.8 mmol/L (3.5-5.1); Sodium 141 mmol/L (136-145)
[2023-11-07 08:03] LABS: Calcium 8.4 mg/dL (8.7-10.4)
[2023-11-07 08:04] LABS: Basophils # (auto) 0.1 10 ^3/uL (0-0.2); Monocytes # (auto) 0.5 10 ^3/uL (0-1.3)
[2023-11-07 08:08] LABS: BUN/Creatinine Ratio 10.7 (10.0-20.0); Blood Urea Nitrogen 9 mg/dL (9-23); Glucose 98 mg/dL (74-106); Magnesium 1.8 mg/dL (1.6-2.6)
[2023-11-07 08:10] LABS: Basophils % (auto) 0.9 % (0.0-2.0); Eosinophils # (auto) 0.3 10 ^3/uL (0-0.8); Hematocrit 23.6 % (36.0-46.0); Hemoglobin 7.5 g/dL (12.2-16.2); Lymphocytes % (auto) 15.6 % (10.0-50.0); Mean Corpuscular Hemoglobin 32.9 pg (28.0-32.0); Mean Corpuscular Volume 102.9 fL (80.0-100.0); Monocytes % (auto) 7.7 % (0.0-12.0); Neutrophils # (auto) 4.6 10 ^3/uL (1.6-8.6); Neutrophils % (auto) 71.8 % (37.0-80.0); Nucleated Red Blood Cells % 0.1 %; Phosphorus 2.4 mg/dL (2.4-5.1); Red Blood Cells 2.29 10^6/uL (4.0-5.20); Red Cell Distribution Width 18.2 % (11.8-14.3); White Blood Cell 6.4 10^3/uL (4.4-10.8)
[2023-11-07 09:00] VITALS: BP 97/41; PULSE 80; RESP 16; TEMP 98; O2SAT 97
[2023-11-07 13:00] VITALS: BP 109/41; PULSE 85; RESP 18; TEMP 98; O2SAT 99
[2023-11-07] MEDS ORDERED: DOXY-448 PO (13:07)
[2023-11-07 15:42] VITALS: BP 97/41; PULSE 80; RESP 17; TEMP 36.6; O2SAT 96
== END 2023-11-07 17:10 | disposition home health service (06) | DRG 291 ==
LOC: ER 18:56 → TELE 21:52 → TELE-CENTR 11-02 02:25
PROVIDERS: ADMIT Internal Medicine; ATTEND Nurse Practitioner
DX: I11.0 Hypertensive heart disease with heart failure (principal); G93.41 Metabolic encephalopathy; J96.21 Acute and chronic respiratory failure with hypoxia; I50.33 Acute on chronic diastolic (congestive) heart failure; I48.19 Other persistent atrial fibrillation; K21.9 Gastro-esophageal reflux disease without esophagitis; D64.9 Anemia, unspecified; E78.5 Hyperlipidemia, unspecified; I27.20 Pulmonary hypertension, unspecified; F03.90 Unspecified dementia, unspecified severity, without behavioral disturbance, psychotic disturbance, mood disturbance, and anxiety; K59.00 Constipation, unspecified; M10.9 Gout, unspecified; G93.89 Other specified disorders of brain; Z79.01 Long term (current) use of anticoagulants; Z79.899 Other long term (current) drug therapy; Z86.73 Personal history of transient ischemic attack (TIA), and cerebral infarction without residual deficits
CPT/HCPCS: 36415; 70450; 74176; 80048; 80053; 81001; 82607; 82746; 82962; 82977; 83690; 83735; 83880; 84100; 84484; 85025; 85610; 85730; 86850; 86900; 86901; 87077; 87186; 87205; 93005; 97110; 97116; 97163; 97530; G0378; J1815

== ENCOUNTER 2023-12-26 13:56 | Emergency (ER) | payer MEDICARE, MEDICAID ==
[~2023-12-26] VITALS: Ht 160 cm; Wt 57.9 kg
[~2023-12-26 13:56] MED LIST changes: -APIX5TAB PO; +DICL1GEL73 TOP; +DOXY100C79 PO; -GABA-1308 PO
[2023-12-26 15:02] LABS: Basophils # (auto) 0 10 ^3/uL (0-0.2); Basophils % (auto) 0.9 % (0.0-2.0); Eosinophils # (auto) 0 10 ^3/uL (0-0.8); Eosinophils % (auto) 1.1 % (0.0-7.0); Hematocrit 25.2 % (36.0-46.0); Hemoglobin 7.4 g/dL (12.2-16.2); Lymphocytes # (auto) 0.9 10 ^3/uL (0.4-5.4); Lymphocytes % (auto) 21.8 % (10.0-50.0); Mean Corpuscular Hemoglobin 32.1 pg (28.0-32.0); Mean Corpuscular Hgb Conc. 29.3 g/dL (32.0-36.0); Mean Corpuscular Volume 109.6 fL (80.0-100.0); Monocytes # (auto) 0.5 10 ^3/uL (0-1.3); Monocytes % (auto) 11.9 % (0.0-12.0); Neutrophils # (auto) 2.8 10 ^3/uL (1.6-8.6); Neutrophils % (auto) 64.3 % (37.0-80.0); Nucleated Red Blood Cells % 0.4 %; Platelet Count (auto) 263 10^3/uL (140-450); Red Blood Cells 2.29 10^6/uL (4.0-5.20); White Blood Cell 4.3 10^3/uL (4.4-10.8)
[2023-12-26 15:08] LABS: Red Cell Distribution Width 20.9 % (11.8-14.3)
[2023-12-26 15:22] VITALS: BP 175/52; PULSE 65; RESP 19; O2SAT 96
[2023-12-26 15:23] LABS: Chloride 114 mmol/L (98-107); Potassium 3.8 mmol/L (3.5-5.1); Sodium 141 mmol/L (136-145)
[2023-12-26 15:24] LABS: Anion Gap 10 (5-15); Calcium 9.1 mg/dL (8.7-10.4); Carbon Dioxide 17 mmol/L (20-31)
[2023-12-26 15:29] LABS: Glucose 116 mg/dL (74-106)
[2023-12-26 15:30] LABS: Magnesium 2.4 mg/dL (1.6-2.6)
[2023-12-26 16:22] LABS: BUN/Creatinine Ratio 19.4 (10.0-20.0); Blood Urea Nitrogen 20 mg/dL (9-23)
[2023-12-26] MEDS ORDERED: FUROSEMIDE 40 MG/4 ML VIAL IV ONE (16:45)
== END 2023-12-26 20:55 | disposition left against medical advice (07) ==
LOC: ER 13:56
DX: D64.9 Anemia, unspecified (principal); I11.0 Hypertensive heart disease with heart failure; I50.33 Acute on chronic diastolic (congestive) heart failure; K21.9 Gastro-esophageal reflux disease without esophagitis; E78.5 Hyperlipidemia, unspecified; Z86.73 Personal history of transient ischemic attack (TIA), and cerebral infarction without residual deficits; Z79.01 Long term (current) use of anticoagulants; Z79.899 Other long term (current) drug therapy
CPT/HCPCS: 36415; 71045; 80048; 83735; 84484; 85025

== ENCOUNTER 2023-12-27 11:20 | Inpatient (IN) | payer MEDICARE, MEDICAID ==
[~2023-12-27] VITALS: Ht 162.6 cm; Wt 44.5 kg
[2023-12-27 12:43] LABS: Basophils # (auto) 0 10 ^3/uL (0-0.2); Basophils % (auto) 0.7 % (0.0-2.0); Chloride 112 mmol/L (98-107); Eosinophils # (auto) 0.1 10 ^3/uL (0-0.8); Eosinophils % (auto) 1.2 % (0.0-7.0); Hematocrit 22.2 % (36.0-46.0); Hemoglobin 7.2 g/dL (12.2-16.2); Lymphocytes # (auto) 1.1 10 ^3/uL (0.4-5.4); Lymphocytes % (auto) 17.2 % (10.0-50.0); Mean Corpuscular Hemoglobin 31.8 pg (28.0-32.0); Mean Corpuscular Hgb Conc. 32.6 g/dL (32.0-36.0); Mean Corpuscular Volume 97.6 fL (80.0-100.0); Monocytes # (auto) 0.6 10 ^3/uL (0-1.3); Monocytes % (auto) 9.8 % (0.0-12.0); Neutrophils # (auto) 4.3 10 ^3/uL (1.6-8.6); Neutrophils % (auto) 71.1 % (37.0-80.0); Nucleated Red Blood Cells % 0.3 %; Platelet Count (auto) 257 10^3/uL (140-450); Potassium 3.6 mmol/L (3.5-5.1); Red Blood Cells 2.27 10^6/uL (4.0-5.20); Red Cell Distribution Width 19.4 % (11.8-14.3); Sodium 143 mmol/L (136-145); White Blood Cell 6.1 10^3/uL (4.4-10.8)
[2023-12-27 12:44] LABS: Anion Gap 8 (5-15); Carbon Dioxide 23 mmol/L (20-31)
[2023-12-27 12:45] LABS: Calcium 9.2 mg/dL (8.7-10.4)
[2023-12-27 12:49] LABS: BUN/Creatinine Ratio 27.4 (10.0-20.0); Glucose 103 mg/dL (74-106)
[2023-12-27 12:51] LABS: Blood Urea Nitrogen 31 mg/dL (9-23)
[2023-12-27 17:41] VITALS: RESP 16
[2023-12-27 18:43] LABS: Urine Bacteria None Seen /hpf (None Seen)
[2023-12-27 18:52] LABS: Urine Blood Negative /uL (Negative); Urine Clarity Clear (Clear); Urine Color Light-Yellow (Yellow); Urine Protein, UAD 1+ (Negative); Urine Specific Gravity 1.014 (1.001-1.035); Urine Urobilinogen Normal (Negative); Urine WBC 1 /hpf (0 - 5); Urine pH 5.5 (5.0-9.0)
[2023-12-27 19:25] VITALS: PULSE 59; RESP 12; O2SAT 100
[2023-12-27 22:20] VITALS: PULSE 58; RESP 12; O2SAT 98
[2023-12-27] MEDS ORDERED: ONDANSETRON HCL 4 MG/2 ML VIAL IV PRN (23:00)
[2023-12-27] MEDS ORDERED: NITROGLYCERIN 0.4 MG SL TAB SL PRN (23:00)
[2023-12-27] MEDS ORDERED: MORPHINE SULFATE INJ 2 MG/ml SYRG IV PRN (23:00)
[2023-12-27] MEDS: FUROSEMIDE 40 MG/4 ML VIAL IV ONE (23:10)
[2023-12-28 03:06] LABS: Basophils # (auto) 0 10 ^3/uL (0-0.2); Basophils % (auto) 0.7 % (0.0-2.0); Eosinophils # (auto) 0.1 10 ^3/uL (0-0.8); Hematocrit 22.4 % (36.0-46.0); Hemoglobin 7.3 g/dL (12.2-16.2); Lymphocytes # (auto) 0.9 10 ^3/uL (0.4-5.4); Mean Corpuscular Hemoglobin 32.4 pg (28.0-32.0); Mean Corpuscular Hgb Conc. 32.6 g/dL (32.0-36.0); Mean Corpuscular Volume 99.3 fL (80.0-100.0); Monocytes # (auto) 0.5 10 ^3/uL (0-1.3); Monocytes % (auto) 7.6 % (0.0-12.0); Neutrophils # (auto) 4.7 10 ^3/uL (1.6-8.6); Neutrophils % (auto) 75.7 % (37.0-80.0); Platelet Count (auto) 265 10^3/uL (140-450); Red Blood Cells 2.25 10^6/uL (4.0-5.20); Red Cell Distribution Width 19.2 % (11.8-14.3); White Blood Cell 6.2 10^3/uL (4.4-10.8)
[2023-12-28 03:24] LABS: Alanine Aminotransferase 20 U/L (7-40); Albumin 3.3 g/dL (3.2-4.8); Alkaline Phosphatase 160 U/L (46-116); Anion Gap 6 (5-15); Aspartate Aminotransferase 20 U/L (13-40); BUN/Creatinine Ratio 30.4 (10.0-20.0); Bilirubin, Total 0.5 mg/dL (0.2-1.0); Blood Urea Nitrogen 28 mg/dL (9-23); Calcium 9.1 mg/dL (8.7-10.4); Carbon Dioxide 24 mmol/L (20-31); Chloride 112 mmol/L (98-107); Glucose 92 mg/dL (74-106); Potassium 3.4 mmol/L (3.5-5.1); Sodium 142 mmol/L (136-145); Total Protein 7.3 g/dL (5.7-8.2)
[2023-12-28] MEDS: SODIUM CHLOR 0.9% PF (SALINE LOCK) 10ML VIAL/SYR IV SCH (06:00)
[2023-12-28] MEDS ORDERED: CARVEDILOL 3.125 MG TAB PO SCH (10:00)
[2023-12-28] MEDS: APIXABAN 2.5 MG TAB PO SCH (10:18)
[2023-12-28] MEDS: FUROSEMIDE 40 MG/4 ML VIAL IV SCH (10:18)
[2023-12-28] MEDS: POTASSIUM CHL 20 Meq TABLET PO ONE (10:18)
[2023-12-28 10:37] LABS: Magnesium 2.2 mg/dL (1.6-2.6)
[2023-12-28 10:40] LABS: % Iron Saturation 10.1 % (15-50)
[2023-12-28 10:56] LABS: Ferritin 55.8 ng/mL (10-291)
[2023-12-28 11:03] LABS: INR 1.31 (0.9-1.15); Prothrombin Time 13.6 sec (9.3-11.8)
[2023-12-28 11:20] LABS: COVID19 ANTIGEN SOFIA FIA NEGATIVE (NEGATIVE); Rapid Influenza A Negative (Negative); Rapid Influenza B Negative (Negative)
[2023-12-28] MEDS: FUROSEMIDE 100 MG/10ML VIAL IV ONE (13:26)
[2023-12-28] MEDS: FUROSEMIDE 20 MG/2 ML VIAL IV SCH (18:29)
[2023-12-28] MEDS: hydrALAZINE HCL 20 MG/ML VL IV PRN (18:29)
[2023-12-28 18:32] VITALS: BP 193/87; PULSE 87; RESP 19; O2SAT 92
[2023-12-28 20:00] VITALS: PULSE 130
[2023-12-28] MEDS: HYDROcodone-ACET 5/325MG TAB PO PRN (20:03)
[2023-12-28] MEDS ORDERED: FURO20TA4 PO (20:10)
[2023-12-28] MEDS ORDERED: MET25T PO (20:10)
[2023-12-28] MEDS ORDERED: AMLO1TAB22 PO (20:10)
[2023-12-28] MEDS ORDERED: SILD20TA41 PO (20:10)
[2023-12-28 21:00] VITALS: BP_SYST 135; BP_SYST 145; BP_DIAS 50; BP_DIAS 57; PULSE 68; PULSE 78; RESP 16; RESP 18; TEMP 97.1; TEMP 97.9; O2SAT 98
[2023-12-28] MEDS: DOCUSATE SOD 100 MG CAP PO PRN (21:08)
[2023-12-28] MEDS: ATORVASTATIN 20 MG TAB PO SCH (21:09)
[2023-12-29] VITALS (8 sets, daily range): BP systolic 121–157; BP diastolic 45–103; PULSE 56–99; RESP 16–20; TEMP 97.5–98.7; O2SAT 91–99
[2023-12-29 07:17] LABS: Basophils # (auto) 0.1 10 ^3/uL (0-0.2); Basophils % (auto) 0.8 % (0.0-2.0); Eosinophils # (auto) 0 10 ^3/uL (0-0.8); Eosinophils % (auto) 0.3 % (0.0-7.0); Hematocrit 22.9 % (36.0-46.0); Hemoglobin 7.5 g/dL (12.2-16.2); Lymphocytes # (auto) 0.9 10 ^3/uL (0.4-5.4); Lymphocytes % (auto) 13.5 % (10.0-50.0); Mean Corpuscular Hemoglobin 32.3 pg (28.0-32.0); Mean Corpuscular Hgb Conc. 32.6 g/dL (32.0-36.0); Monocytes # (auto) 0.5 10 ^3/uL (0-1.3); Monocytes % (auto) 7.1 % (0.0-12.0); Neutrophils # (auto) 5.4 10 ^3/uL (1.6-8.6); Neutrophils % (auto) 78.3 % (37.0-80.0); Nucleated Red Blood Cells % 0.2 %; Platelet Count (auto) 278 10^3/uL (140-450); Red Blood Cells 2.32 10^6/uL (4.0-5.20); Red Cell Distribution Width 19.9 % (11.8-14.3); White Blood Cell 6.9 10^3/uL (4.4-10.8)
[2023-12-29 07:42] LABS: Alanine Aminotransferase 19 U/L (7-40); Alkaline Phosphatase 159 U/L (46-116); Anion Gap 10 (5-15); BUN/Creatinine Ratio 26.3 (10.0-20.0); Blood Urea Nitrogen 25 mg/dL (9-23); Calcium 9.2 mg/dL (8.7-10.4); Carbon Dioxide 23 mmol/L (20-31); Chloride 111 mmol/L (98-107); Glucose 88 mg/dL (74-106); Potassium 4.9 mmol/L (3.5-5.1); Sodium 144 mmol/L (136-145)
[2023-12-29 07:43] LABS: Magnesium 2.1 mg/dL (1.6-2.6)
[2023-12-29 07:44] LABS: Albumin 3.3 g/dL (3.2-4.8); Aspartate Aminotransferase 30 U/L (13-40); Bilirubin, Total 0.5 mg/dL (0.2-1.0)
[2023-12-29 07:45] LABS: Total Protein 7.4 g/dL (5.7-8.2)
[2023-12-29] MEDS: ACETAMINOPHEN 325 MG TAB PO PRN (08:36)
[2023-12-29] MEDS: PANTOPRAZOLE 40 MG/10 ML VIAL INJ IV SCH (08:36)
[2023-12-29] MEDS: amLODIPine BESYLATE 5 MG TAB PO ONE (08:58)
[2023-12-29] MEDS: LOSARTAN POTASSIUM 50 MG TAB PO ONE (08:58)
[2023-12-29] MEDS: IRON SUCROSE COMPLEX 100 ML IV SCH (12:11)
[2023-12-29] MEDS: amLODIPine BESYLATE 5 MG TAB PO SCH (21:53)
[2023-12-30] VITALS (7 sets, daily range): BP systolic 124–147; BP diastolic 47–74; PULSE 72–87; RESP 18–20; TEMP 97.6–99.4; O2SAT 91–97
[2023-12-30 07:20] LABS: Chloride 112 mmol/L (98-107); Potassium 3.5 mmol/L (3.5-5.1); Sodium 145 mmol/L (136-145)
[2023-12-30 07:21] LABS: Anion Gap 8 (5-15); Calcium 9.5 mg/dL (8.7-10.4); Carbon Dioxide 25 mmol/L (20-31)
[2023-12-30 07:22] LABS: Basophils # (auto) 0 10 ^3/uL (0-0.2); Monocytes # (auto) 0.6 10 ^3/uL (0-1.3); Neutrophils # (auto) 5.4 10 ^3/uL (1.6-8.6); Red Cell Distribution Width 19.5 % (11.8-14.3)
[2023-12-30 07:24] LABS: Basophils % (auto) 0.6 % (0.0-2.0); Eosinophils # (auto) 0.1 10 ^3/uL (0-0.8); Eosinophils % (auto) 0.8 % (0.0-7.0); Hematocrit 22.5 % (36.0-46.0); Hemoglobin 7.5 g/dL (12.2-16.2); Lymphocytes % (auto) 14.4 % (10.0-50.0); Mean Corpuscular Hgb Conc. 33.4 g/dL (32.0-36.0); Mean Corpuscular Volume 98.7 fL (80.0-100.0); Monocytes % (auto) 7.9 % (0.0-12.0); Neutrophils % (auto) 76.3 % (37.0-80.0); Nucleated Red Blood Cells % 0.5 %; Platelet Count (auto) 271 10^3/uL (140-450); Red Blood Cells 2.28 10^6/uL (4.0-5.20); White Blood Cell 7.1 10^3/uL (4.4-10.8)
[2023-12-30 07:26] LABS: BUN/Creatinine Ratio 17.9 (10.0-20.0); Blood Urea Nitrogen 17 mg/dL (9-23); Glucose 89 mg/dL (74-106)
[2023-12-30 08:52] LABS: Hepatitis B Surface Antigen Negative (Negative)
[2023-12-30] MEDS: FUROSEMIDE 40 MG/4 ML VIAL IV SCH (09:15)
[2023-12-30 09:16] LABS: Hepatitis C Antibody Negative (Negative)
[2023-12-30] MEDS: LOSARTAN POTASSIUM 50 MG TAB PO SCH (10:09)
[2023-12-30 11:28] LABS: Folate (Folic Acid) 10.18 ng/mL (>5.38)
[2023-12-30] MEDS: SILDENAFIL CITRATE 20 MG TAB PO SCH (14:32)
[2023-12-30] MEDS: amLODIPine BESYLATE 5 MG TAB PO ONE (14:33)
[2023-12-31] VITALS (11 sets, daily range): BP systolic 107–144; BP diastolic 34–63; PULSE 69–88; RESP 16–19; TEMP 97.4–98.7; O2SAT 90–96
[2023-12-31 06:38] LABS: Chloride 109 mmol/L (98-107); Potassium 3.3 mmol/L (3.5-5.1); Sodium 147 mmol/L (136-145)
[2023-12-31 06:39] LABS: Anion Gap 10 (5-15); Carbon Dioxide 28 mmol/L (20-31)
[2023-12-31 06:40] LABS: Calcium 9.4 mg/dL (8.7-10.4)
[2023-12-31 06:45] LABS: BUN/Creatinine Ratio 18.5 (10.0-20.0); Blood Urea Nitrogen 17 mg/dL (9-23); Glucose 90 mg/dL (74-106)
[2023-12-31 06:49] LABS: Basophils # (auto) 0 10 ^3/uL (0-0.2); Basophils % (auto) 0.6 % (0.0-2.0); Eosinophils # (auto) 0.1 10 ^3/uL (0-0.8); Eosinophils % (auto) 1.1 % (0.0-7.0); Monocytes # (auto) 0.6 10 ^3/uL (0-1.3); Neutrophils # (auto) 4.7 10 ^3/uL (1.6-8.6)
[2023-12-31 06:56] LABS: Hematocrit 20.4 % (36.0-46.0); Lymphocytes # (auto) 1.2 10 ^3/uL (0.4-5.4); Lymphocytes % (auto) 17.7 % (10.0-50.0); Mean Corpuscular Hemoglobin 32.2 pg (28.0-32.0); Mean Corpuscular Hgb Conc. 32.7 g/dL (32.0-36.0); Mean Corpuscular Volume 98.2 fL (80.0-100.0); Monocytes % (auto) 8.5 % (0.0-12.0); Neutrophils % (auto) 72.1 % (37.0-80.0); Nucleated Red Blood Cells % 1.2 %; Platelet Count (auto) 250 10^3/uL (140-450); Red Blood Cells 2.08 10^6/uL (4.0-5.20); Red Cell Distribution Width 19.4 % (11.8-14.3); White Blood Cell 6.6 10^3/uL (4.4-10.8)
[2023-12-31 07:07] LABS: RPR Non Reactive (Non Reactive)
[2023-12-31 07:50] LABS: Hemoglobin 6.7 g/dL (12.2-16.2)
[2023-12-31] MEDS: POTASSIUM EFFERVESENT TAB 25 MEQ PO ONE (08:07)
[2023-12-31] MEDS ORDERED: ALBUTEROL SULF 2.5 MG/0.5ML(0.5%) NEB SOLN NEB SCH (08:30)
[2023-12-31] MEDS ORDERED: IPRATROPIUM BROM 0.5 MG/2.5ML INH SOL NEB PRN (08:30)
[2023-12-31] MEDS: amLODIPine BESYLATE 5 MG TAB PO SCH (10:33)
[2023-12-31] MEDS: DOXYCYCLINE 100MG/250ML 250 ML IV SCH (11:45)
[2023-12-31] MEDS ORDERED: ALBUTEROL SULF 2.5 MG/0.5ML(0.5%) NEB SOLN NEB PRN (11:45)
[2023-12-31] MEDS ORDERED: IPRATROPIUM BROM 0.5 MG/2.5ML INH SOL NEB SCH (12:00)
[2023-12-31 12:50] LABS: Basophils # (auto) 0 10 ^3/uL (0-0.2); Basophils % (auto) 0.4 % (0.0-2.0); Eosinophils # (auto) 0.1 10 ^3/uL (0-0.8); Lymphocytes # (auto) 1.1 10 ^3/uL (0.4-5.4); Mean Corpuscular Volume 99.1 fL (80.0-100.0); Monocytes # (auto) 0.5 10 ^3/uL (0-1.3)
[2023-12-31 12:52] LABS: Eosinophils % (auto) 0.7 % (0.0-7.0); Hematocrit 24.3 % (36.0-46.0); Lymphocytes % (auto) 14.9 % (10.0-50.0); Mean Corpuscular Hemoglobin 32.4 pg (28.0-32.0); Mean Corpuscular Hgb Conc. 32.7 g/dL (32.0-36.0); Neutrophils # (auto) 5.5 10 ^3/uL (1.6-8.6); Nucleated Red Blood Cells % 1.6 %; Platelet Count (auto) 264 10^3/uL (140-450); Red Blood Cells 2.46 10^6/uL (4.0-5.20); White Blood Cell 7.1 10^3/uL (4.4-10.8)
[2023-12-31 13:02] LABS: INR 1.36 (0.9-1.15); Partial Thromboplastin Time 36.7 SEC (24.5-34.5); Prothrombin Time 14.1 sec (9.3-11.8)
[2023-12-31] MEDS: cefTRIAXone 1GM/50ML D5W 50 ML IV ONE (13:33)
[2023-12-31] MEDS: diphenhdrAMINE HCL 50 MG/1 ML VL IV ONE (15:21)
[2023-12-31] MEDS: DOXYCYCLINE 100MG/250ML 250 ML IV ONE (16:30)
[2024-01-01] VITALS (8 sets, daily range): BP systolic 106–141; BP diastolic 41–63; PULSE 60–94; RESP 16–19; TEMP 97.2–98.2; O2SAT 93–100
[2024-01-01] MEDS: POTASSIUM EFFERVESENT TAB 25 MEQ PO ONE (01:08)
[2024-01-01 06:20] LABS: Basophils # (auto) 0 10 ^3/uL (0-0.2); Eosinophils # (auto) 0.2 10 ^3/uL (0-0.8); Lymphocytes # (auto) 1.1 10 ^3/uL (0.4-5.4); Neutrophils # (auto) 3.8 10 ^3/uL (1.6-8.6); White Blood Cell 5.7 10^3/uL (4.4-10.8)
[2024-01-01 06:24] LABS: Basophils % (auto) 0.7 % (0.0-2.0); Eosinophils % (auto) 2.9 % (0.0-7.0); Hematocrit 23.2 % (36.0-46.0); Hemoglobin 7.7 g/dL (12.2-16.2); Mean Corpuscular Hemoglobin 30.7 pg (28.0-32.0); Mean Corpuscular Hgb Conc. 33.1 g/dL (32.0-36.0); Mean Corpuscular Volume 92.9 fL (80.0-100.0); Monocytes # (auto) 0.6 10 ^3/uL (0-1.3); Monocytes % (auto) 10.4 % (0.0-12.0); Platelet Count (auto) 211 10^3/uL (140-450)
[2024-01-01 06:26] LABS: Anion Gap 7 (5-15); Carbon Dioxide 32 mmol/L (20-31); Chloride 105 mmol/L (98-107); Potassium 3.3 mmol/L (3.5-5.1); Sodium 144 mmol/L (136-145)
[2024-01-01 06:28] LABS: Calcium 9.2 mg/dL (8.7-10.4)
[2024-01-01 06:32] LABS: BUN/Creatinine Ratio 14.4 (10.0-20.0); Blood Urea Nitrogen 13 mg/dL (9-23); Glucose 102 mg/dL (74-106)
[2024-01-01 06:47] LABS: Red Cell Distribution Width 22.3 % (11.8-14.3)
[2024-01-01] MEDS: POTASSIUM CHLORIDE 60 MEQ, LIDOCAINE 1% (LOCAL ANESTH.) 6 ML in SODIUM CHL 0.9% 500 ML IV ONE (08:41)
[2024-01-01 12:01] LABS: Base Excess 3.3 mmol/L (-2.0-3.0)
[2024-01-01] MEDS: cefTRIAXone 1GM/50ML D5W 50 ML IV SCH (12:51)
[2024-01-01] MEDS: SODIUM FERR GLUC 62.5MG/5ML 110 ML IV ONE (16:31)
[2024-01-01 22:06] LABS: Body Fluid Polymorphonuclear 3 % (0-25); Body Fluid Red Blood Cells 12363 CUMM (0-2000); Body Fluid White Blood Cells 547 CUMM (0-200)
[2024-01-02 05:00] VITALS: BP 135/50; PULSE 79; RESP 18; TEMP 97.9; O2SAT 98
[2024-01-02 06:52] LABS: Anion Gap 6 (5-15); Carbon Dioxide 30 mmol/L (20-31); Chloride 107 mmol/L (98-107); Potassium 3.8 mmol/L (3.5-5.1); Sodium 143 mmol/L (136-145)
[2024-01-02 06:53] LABS: Calcium 9.1 mg/dL (8.7-10.4)
[2024-01-02 06:58] LABS: BUN/Creatinine Ratio 12.5 (10.0-20.0); Blood Urea Nitrogen 11 mg/dL (9-23); Glucose 84 mg/dL (74-106)
[2024-01-02 07:00] VITALS: PULSE 70; RESP 16; O2SAT 97
[2024-01-02 08:00] VITALS: PULSE 70; RESP 16; O2SAT 97
[2024-01-02 08:26] VITALS: BP 114/61; PULSE 70; RESP 16; TEMP 99.1; O2SAT 97
[2024-01-02 09:11] LABS: Basophils # (auto) 0 10 ^3/uL (0-0.2); Basophils % (auto) 0.9 % (0.0-2.0); Eosinophils # (auto) 0.1 10 ^3/uL (0-0.8); Eosinophils % (auto) 2.6 % (0.0-7.0); Hematocrit 24.2 % (36.0-46.0); Hemoglobin 7.9 g/dL (12.2-16.2); Lymphocytes # (auto) 1.1 10 ^3/uL (0.4-5.4); Lymphocytes % (auto) 20.9 % (10.0-50.0); Mean Corpuscular Hemoglobin 30.9 pg (28.0-32.0); Mean Corpuscular Hgb Conc. 32.7 g/dL (32.0-36.0); Mean Corpuscular Volume 94.7 fL (80.0-100.0); Monocytes # (auto) 0.5 10 ^3/uL (0-1.3); Monocytes % (auto) 9.9 % (0.0-12.0); Neutrophils # (auto) 3.4 10 ^3/uL (1.6-8.6); Neutrophils % (auto) 65.7 % (37.0-80.0); Nucleated Red Blood Cells % 1.3 %; Platelet Count (auto) 201 10^3/uL (140-450); Red Blood Cells 2.56 10^6/uL (4.0-5.20); Red Cell Distribution Width 22.5 % (11.8-14.3); White Blood Cell 5.2 10^3/uL (4.4-10.8)
[2024-01-02] MEDS ORDERED: CEFP200T15 PO (10:41)
[2024-01-02] MEDS ORDERED: DOXY1CAP57 PO (10:41)
[2024-01-02] MEDS ORDERED: AML5T PO (10:41)
[2024-01-02] MEDS ORDERED: FER325T PO (10:43)
[2024-01-02] MEDS: SODIUM FERR GLUC 62.5MG/5ML 110 ML IV SCH (12:00)
[2024-01-02 12:09] VITALS: BP 114/44; PULSE 67; RESP 17; TEMP 97.7; O2SAT 99
[2024-01-02 12:19] VITALS: BP 114/44; PULSE 67; RESP 17; TEMP 97.7; O2SAT 99
[2024-01-03 13:07] LABS: Protein, Body Fluid 2.3 g/dL (.)
== END 2024-01-02 18:18 | disposition home health service (06) | DRG 291 ==
LOC: ER 11:20 → TELE 22:58 → TELE-WESTW 12-28 18:12 → WEST WING 01-01 13:52
PROVIDERS: ADMIT Internal Medicine; ATTEND Internal Medicine
PROC: 05HA33Z Insertion of Infusion Device into Left Brachial Vein, Percutaneous Approach (ICD-10-PCS; 2023-12-27)
PROC: B54NZZA Ultrasonography of Left Upper Extremity Veins, Guidance (ICD-10-PCS; 2023-12-27)
PROC: 30233N1 Transfusion of Nonautologous Red Blood Cells into Peripheral Vein, Percutaneous Approach (ICD-10-PCS; 2023-12-31)
PROC: 0W993ZX Drainage of Right Pleural Cavity, Percutaneous Approach, Diagnostic (ICD-10-PCS; principal; 2024-01-01)
DX: I11.0 Hypertensive heart disease with heart failure (principal); I50.33 Acute on chronic diastolic (congestive) heart failure; J96.01 Acute respiratory failure with hypoxia; R64 Cachexia; J98.11 Atelectasis; D68.9 Coagulation defect, unspecified; Z68.1 Body mass index [BMI] 19.9 or less, adult; D64.9 Anemia, unspecified; E78.5 Hyperlipidemia, unspecified; F03.90 Unspecified dementia, unspecified severity, without behavioral disturbance, psychotic disturbance, mood disturbance, and anxiety; I16.0 Hypertensive urgency; I27.20 Pulmonary hypertension, unspecified; I48.91 Unspecified atrial fibrillation; M06.9 Rheumatoid arthritis, unspecified; K21.9 Gastro-esophageal reflux disease without esophagitis; J44.9 Chronic obstructive pulmonary disease, unspecified; I08.3 Combined rheumatic disorders of mitral, aortic and tricuspid valves; M10.9 Gout, unspecified; E87.6 Hypokalemia; Z91.199 Patient's noncompliance with other medical treatment and regimen due to unspecified reason; Z86.73 Personal history of transient ischemic attack (TIA), and cerebral infarction without residual deficits; Z79.899 Other long term (current) drug therapy; Z79.01 Long term (current) use of anticoagulants; Z96.653 Presence of artificial knee joint, bilateral
CPT/HCPCS: 36415; 36600; 71045; 71046; 71250; 80048; 80053; 80061; 81001; 82140; 82607; 82728; 82746; 82805; 83010; 83540; 83550; 83615; 83735; 83880; 83986; 84443; 84484; 85025; 85610; 85730; 86592; 86803; 86850; 86900; 86901; 86920; 87081; 87205; 87340; 87426; 87804; 89051; 93005; 93306; 93970; 97110; 97116; 97163; 97530; 99291; G0378; J1756; J2003; J2470; J3490

== ENCOUNTER 2024-04-23 16:20 | Inpatient (IN) | payer MEDICARE, MEDICAID ==
[~2024-04-23] VITALS: Ht 137.2 cm; Wt 45.3 kg
[~2024-04-23 16:20] MED LIST changes: +CEFP200T15 PO; -DOXY100C79 PO; +DOXY1CAP57 PO; +FER325T PO; +FURO20TA4 PO; -FURO40TA4 PO; +MET25T PO; -METO25TA93 PO; -SILD20TA PO; +SILD20TA41 PO
--- NOTE | 2024-04-23 16:35 | ED.PDOC ---
History of Present Illness(SKN HPI Comments 79 year old female SANJANA presents to the ED with chief complaint of bed sore. EMS reports patient is coming from home for a bed sore found to her buttocks by family. EMS relays that the wound has purulent drainage, is open, and has a foul smell. EMS states patient's vitals are normal and patient is normally confused due to history of dementia. Patient unable to answer questions at this time and remained non-verbal when questioned. Time Seen by MD: 16:29 Primary Care Provider: UNKNOWN History of Present Illness: Nurses Notes, Medications, Allergies Allergies: Coded Allergies: NO KNOWN ALLERGIES (Unverified , 02/10/14) Home Meds Active Scripts Ferrous Sulfate (Ferrous Sulfate) 325 Mg Tab, 325 MG PO DAILY for 30 Days, #30 TAB 3 Refills Prov:RAI MIMS RESIDENT 01/02/24 Doxycycline Monohydrate (Doxycycline Monohydrate) 100 Mg Cap, 1 CAP PO BID for 5 Days, #28 CAP Prov:RAI MIMS RESIDENT 01/02/24 Cefpodoxime Proxetil (Cefpodoxime Proxetil) 200 Mg Tab, 1 TAB PO BID for 5 Days, #10 TAB Prov:RAI MIMS RESIDENT 01/02/24 Amlodipine Besylate (NORVASC TABLET) 5 Mg Tb, 10 MG PO DAILY for 30 Days, #60 TAB 2 Refills Prov:RAI MIMS RESIDENT 01/02/24 Reported Medications Sildenafil Citrate (Sildenafil Citrate) 20 Mg Tab, 1 TAB PO TID 12/28/23 Diclofenac Sodium (Topical) (Diclofenac Sodium) 1 % Gel, 1 APPLIC TOP TID for 28 Days, #400 12/28/23 Furosemide (Furosemide) 20 Mg Tab, 1 TAB PO DAILY 12/28/23 Metoprolol Tartrate (Lopressor) 25 Mg Tb, 0.5 TAB PO DAILY 12/28/23 Gabapentin (Gabapentin) 300 Mg Cap, 1 CAP PO BID for 30 Days, #60 11/04/23 Apixaban Base (ELIQUIS) 2.5 Mg Tab, 1 TAB PO BID 11/04/23 Potassium Chloride (POTASSIUM CHLORIDE CR) 10 Meq Tb, 1 TAB PO DAILY WITH FOOD, TAB 09/25/23 Losartan Potassium (Losartan Potassium) 50 Mg Tab, 50 MG PO DAILY, MG TAKE 1 TABLET BY MOUTH EVERY DAY. HOLD IF BLOOD PRESSURE IS LESS THAN 110/60 09/25/23 Atorvastatin Calcium (ATORVASTATIN CALCIUM) 40 Mg Tab, 40 MG PO DAILY, TAB 09/25/23 Information Source: Emergency Med Personnel Mode of Arrival: EMS Severity: Moderate Timing: Days Duration: Since onset Prehospital treatment: None Location: Buttock Mechanism: Preceding Wound Wound Type: Abscess Past Medical History PAST MEDICAL HISTORY: AFIB, CHF, CVA, Dementia, GERD, Gout, High Lipids, HTN Surgical History: Denies all surgeries EXHIBIT BUILDER History: Denies all EXHIBIT BUILDER Hx Family History Family History: Reviewed,noncontributory to illness Social History Smoker: Non-Smoker Alcohol: Denies ETOH Use Drugs: Denies Drug Use Lives In: Home Unable to Obtain due to: Altered Mental Status, Dementia All Other Systems: Reviewed and Negative Physical Exam General Appearance: No Apparent Distress, Normal HEENT: Normal ENT Inspection, Pharynx Normal, TMs Normal Neck: Full Range of Motion, Non-Tender, Normal, Normal Inspection Respiratory: Chest Non-Tender, Lungs Clear, No Accessory Muscle Use, No Respiratory Distress, Normal Breath Sounds Cardiovascular: No Edema, No JVD, No Murmur, No Gallop, Normal Peripheral Pulses, Regular Rate/Rhythm Breast Exam: Deferred Gastrointestinal: No Organomegaly, Non Tender, No Pulsatile Mass, Normal Bowel Sounds, Soft Genitalia: Deferred Pelvic: Deferred Rectal: Deferred Extremities: No calf tenderness, Normal capillary refill, Normal inspection, Normal range of motion, Non-tender, No pedal edema Musculoskeletal : Apperance: Normal Neurologic: Alert, chemical treatment operator II-XII nml as Tested, No Motor Deficits, Normal Affect, Normal Mood, No Sensory Deficits Cerebellar Function: Normal Reflexes: Normal Skin: Dry, Normal Color, Warm, Wounds (5x8 cm Stage 4 pressure ulcer with fibrinous adherent sloughing, depth unmeasurable) Lymphatic: No Adenopathy Was a procedure done? Was a procedure done?: No X-Ray, Labs, Meds, VS Vital Signs Date Time Temp Pulse Resp B/P (MAP) Pulse Ox O2 Delivery O2 Flow Rate FiO2 04/23/24 19:25 98.7 60 15 142/56 (84) 98 98.7 04/23/24 19:25 60 15 98 Room Air* 0 21 04/23/24 18:50 97.8 63 12 138/57 (84) 99 97.8 04/23/24 17:59 68 14 97 Room Air* 0 21 04/23/24 17:15 68 14 149/78 (101) 97 04/23/24 16:56 63 04/23/24 16:34 98.9 58 16 111/56 (74) 100 Lab Test 04/23/24 20:15 04/23/24 18:00 Range/Units Urine Color Light-yellow Yellow Urine Clarity Clear Clear Urine pH 6.5 5.0-9.0 Urine Specific [place] 1.012 1.001-1.035 Urine Protein Negative Negative Urine Ketones Negative Negative Urine Blood Trace H Negative /uL Urine Nitrite Negative Negative Urine Bilirubin Negative Negative Urine Urobilinogen Normal Negative mg/dL Urine Leukocyte Esterase Negative Negative /uL Urine RBC 9 0 - 4 /hpf Urine Microscopic WBC 1 0-5 /HPF Urine Squamous Epithelial Cells None seen <5 /hpf Urine Bacteria None seen None Seen /hpf Urine Glucose Normal Normal mg/dL White Blood Count 7.1 4.4-10.8 10^3/uL Red Blood Count 2.49 L 4.0-5.20 10^6/uL Hemoglobin 8.2 L 12.2-16.2 g/dL Hematocrit 25.5 L 36.0-46.0 % Mean Corpuscular Volume 102.6 H 80.0-100.0 fL Mean Corpuscular Hemoglobin 32.8 H 28.0-32.0 pg Mean Corpuscular Hemoglobin Concent 32.0 32.0-36.0 g/dL Red Cell Distribution Width 19.0 H 11.8-14.3 % Platelet Count 256 140-450 10^3/uL Mean Platelet Volume 7.8 6.9-10.8 fL Neutrophils (%) (Auto) 74.0 37.0-80.0 % Lymphocytes (%) (Auto) 20.6 10.0-50.0 % Monocytes (%) (Auto) 4.2 0.0-12.0 % Eosinophils (%) (Auto) 0.9 0.0-7.0 % Basophils (%) (Auto) 0.3 0.0-2.0 % Neutrophils # (Auto) 5.2 1.6-8.6 10 ^3/uL Lymphocytes # (Auto) 1.5 0.4-5.4 10 ^3/uL Monocytes # (Auto) 0.3 0-1.3 10 ^3/uL Eosinophils # (Auto) 0.1 0-0.8 10 ^3/uL Basophils # (Auto) 0 0-0.2 10 ^3/uL Nucleated Red Blood Cells 0.0 % Sodium Level 142 136-145 mmol/L Potassium Level 3.6 3.5-5.1 mmol/L Chloride Level 111 H 98-107 mmol/L Carbon Dioxide Level 24 20-31 mmol/L Anion Gap 7 5-15 Blood Urea Nitrogen 39 H 9-23 mg/dL Creatinine 0.86 0.550-1.02 mg/dL Glomerular Filtration Rate Calc 69 >90 mL/min BUN/Creatinine Ratio 45.3 H 10.0-20.0 Serum Glucose 103 74-106 mg/dL Calcium Level 9.4 8.7-10.4 mg/dL Total Bilirubin 0.5 0.2-1.0 mg/dL Aspartate Amino Transferase (AST) 18 13-40 U/L Alanine Aminotransferase (ALT) < 9 7-40 U/L Alkaline Phosphatase 109 46-116 U/L Total Protein 7.3 5.7-8.2 g/dL Albumin 2.9 L 3.2-4.8 g/dL Lipase 25 12-53 U/L X-Ray, Labs, Meds, VS Comment Imaging: X-rays and CT scans were reviewed and interpreted by this provider, imaging shows no fractures and no pathological disease. Pending radiology review. Laboratory: Labs reviewed and interpreted by this provider. No significant abnormalities noted. Patient has prior medical visits reviewed. Med reconciliation performed Vital signs reviewed Time of 1ST Reevaluation: 17:29 Reevaluation 1ST: Unchanged Patient Education/Counseling: Diagnosis, Treatment Family Education/Counseling: No Family Present Departure 1 Departure Time of Disposition: 21:25 Impression: Primary Impression: Severe anemia Additional Impressions: Dementia Qualified Codes: F03.C0 - Unspecified dementia, severe, without behavioral disturbance, psychotic disturbance, mood disturbance, and anxiety Decubitus ulcer Qualified Codes: L89.40 - Pressure ulcer of contiguous site of back, buttock and hip, unspecified stage Disposition: ADMITTED INPATIENT Condition: Fair Critical Care Note Critical Care Time?: No Stability Stability form required: No Heart Score Heart Score: Heart Score Response (Comments) Value History N/A 0 EKG N/A 0 Age N/A 0 Risk Factors N/A 0 Troponin N/A 0 Total 0 I personally scribed for CAT CAREY ([email or web address]) on 04/23/24 at 16:35. Electronically submitted by Aden Hill ([email or web address]). CAT CAREY Apr 23, 2024 16:35
[2024-04-23 17:59] VITALS: PULSE 68; RESP 14; O2SAT 97
[2024-04-23 18:31] LABS: Basophils # (auto) 0 10 ^3/uL (0-0.2); Basophils % (auto) 0.3 % (0.0-2.0); Eosinophils # (auto) 0.1 10 ^3/uL (0-0.8); Monocytes # (auto) 0.3 10 ^3/uL (0-1.3); Neutrophils # (auto) 5.2 10 ^3/uL (1.6-8.6)
[2024-04-23 18:33] LABS: Eosinophils % (auto) 0.9 % (0.0-7.0); Hematocrit 25.5 % (36.0-46.0); Hemoglobin 8.2 g/dL (12.2-16.2); Lymphocytes # (auto) 1.5 10 ^3/uL (0.4-5.4); Lymphocytes % (auto) 20.6 % (10.0-50.0); Mean Corpuscular Hemoglobin 32.8 pg (28.0-32.0); Mean Corpuscular Volume 102.6 fL (80.0-100.0); Monocytes % (auto) 4.2 % (0.0-12.0); Platelet Count (auto) 256 10^3/uL (140-450); Red Blood Cells 2.49 10^6/uL (4.0-5.20); White Blood Cell 7.1 10^3/uL (4.4-10.8)
[2024-04-23 19:01] LABS: Alkaline Phosphatase 109 U/L (46-116); Anion Gap 7 (5-15); Aspartate Aminotransferase 18 U/L (13-40); BUN/Creatinine Ratio 45.3 (10.0-20.0); Calcium 9.4 mg/dL (8.7-10.4); Carbon Dioxide 24 mmol/L (20-31); Glucose 103 mg/dL (74-106); Lipase 25 U/L (12-53); Potassium 3.6 mmol/L (3.5-5.1); Sodium 142 mmol/L (136-145)
[2024-04-23 19:02] LABS: Bilirubin, Total 0.5 mg/dL (0.2-1.0); Total Protein 7.3 g/dL (5.7-8.2)
[2024-04-23 19:04] LABS: Alanine Aminotransferase < 9 U/L (7-40); Albumin 2.9 g/dL (3.2-4.8); Blood Urea Nitrogen 39 mg/dL (9-23); Chloride 111 mmol/L (98-107)
[2024-04-23 19:25] VITALS: PULSE 60; RESP 15; O2SAT 98
[2024-04-23 20:20] LABS: Urine Bacteria None Seen /hpf (None Seen)
[2024-04-23 20:29] LABS: Urine Blood TRACE /uL (Negative); Urine Clarity Clear (Clear); Urine Color Light-Yellow (Yellow); Urine Protein, UAD Negative (Negative); Urine Specific Gravity 1.012 (1.001-1.035); Urine Squamous Epithelial Cell None Seen /hpf (<5); Urine Urobilinogen Normal (Negative); Urine WBC 1 /HPF (0-5); Urine pH 6.5 (5.0-9.0)
--- NOTE | 2024-04-23 21:07 | DVH ---
Exam: CT CT AB PEL WO CON-NO ORAL OR IV History: wound Comparison Study: None available at time of dictation. TECHNIQUE: Multidetector CT of the abdomen and pelvis without contrast. Axial, coronal and sagittal m ultiplanar reformats were obtained from the axial data set by the technologist. Radiation Dose Information: CT Dose: CTDI volume is 5.07 mGy. Dose-length product is 260.73 mGy*cm FINDINGS: Bibasilar atelectasis. Moderate cardiomegaly. Ectatic ascending aorta measuring up to 4 cm. 3.7 cm left hepatic lobe cyst with additional 1 cm 1.2 cm right hepatic lobe cyst. There is 1 cm hepa tic dome hypodense lesion which does not measure as simple fluid. 0.8 cm Subcentimeter hypodense hepa tic lesion that is too small to characterize. Spleen is unremarkable. Pancreas, gallbladder and adrenal glands are not well-visualized. Limited evaluation of the kidneys given noncontrast imaging. No hydronephrosis or renal calculi bilat erally. Urinary bladder is mildly distended. Otherwise, unremarkable. Uterus is not definitely visua lized. Limited evaluation of the stomach and small bowel loops. No significant distention of the small james l loops. Appendix is not visualized. Large amount of fecal material within the colon. Mild rectal wa ll thickening. Diffuse mesenteric edema. No evidence of intraperitoneal free air. Moderate to heavy atherosclerotic calcification of the aorta and bilateral iliacs. No evidence of ane urysm. Limited evaluation for lymphadenopathy. Diffuse anasarca. There is right-sided sacral decubitus ulcer. No destructive osseous lesions are no nikky. IMPRESSION: Study is significantly limited given noncontrast imaging. Mild mesenteric edema with diffuse anasarca. Constipation with rectal wall thickening. Correlate for stercoral colitis. Right-sided sacral decubitus ulcer. Moderate cardiomegaly with ectasia of the partially visualized ascending aorta measuring up to 4 cm. Multiple hepatic cysts with 1 cm hepatic dome hypodense lesion which does not measure simple fluid. The gallbladder, pancreas, gastrointestinal tract, uterus, adrenal glands and lymph nodes are not wel l evaluated.
[2024-04-23] MEDS: PIPERACILLIN-TAZOB 3.375GM 100 ML IV ONE (22:10)
--- NOTE | 2024-04-23 23:47 | DVHHPRES ---
History of Present Illness Resident Creating Document: KYE HERNANDEZ RESDIENT History of Present Illness This is a 79-year-old female with past medical history of CHF, CVA, AFib, hypertension, dementia, brought to the hospital due to worsening of bedsore. Per patient's granddaughter, the patient has a sacral wound since 1 month, which has recently worsened and has been associated with purulent discharge. The patient has been bed-bound since 2 months due to advanced dementia and previous CVA history. Per patient's grand daughter, patient's is recently been more weak and oral intake has been reduced at denies any fever, cough, shortness of breath, or any recent changes in bowel and bladder movement. PMHx: CHF, CVA, AFib, hypertension, dementia and bedsore PSHx: Left knee surgery Social history: Patient is bed-bound due to advanced dementia and previous CVA history, lives with the daughter and granddaughter at home, ex-smoker denies any other drug use. Home medication: Lasix, gabapentin, iron, apixaban, trazodone, memantine Allergic history: No known allergy Review of Systems Review of Systems The patient is altered mental, ROS could not obtain. Allergies: Coded Allergies: NO KNOWN ALLERGIES (Unverified , 02/10/14) Exam Vital Signs Vital Signs Date Time Temp Pulse Resp B/P (MAP) Pulse Ox O2 Delivery O2 Flow Rate FiO2 04/23/24 22:00 83 15 117/80 (92) 95 04/23/24 19:25 98.7 98.7 04/23/24 19:25 Room Air* 0 21 Exam General Appearance: An old cachectic woman lying in the bed with mild distress, disoriented. HEENT: Atraumatic, PERRLA, EOMI, Mucous membrane moist/pink Respiratory: Clear to auscultation, Normal air movement Cardiovascular: Regular rate, Normal S1, Normal S2, No murmurs, no chest wall tenderness Abdominal: Normal bowel sounds, Soft, No tenderness, No hepatospenomegaly, No masses Extremities: No clubbing, No cyanosis, No edema, Normal pulses, No tenderness/swelling Skin: There is an grade 3 to 4 sacral ulcer (7 in 7 cm) and a small as an anterior surface of lower limb [id number] Neuro: Normal gait, Normal speech, Strength at 5/5 X4 ext, Normal tone, Sensation intact, Cranial nerves 3-12 NL, Reflexes 2+ Psych/Mental Status: Mental status NL, Mood NL Labs/Xrays Labs Test 04/23/24 20:15 04/23/24 18:00 Range/Units Urine Color Light-yellow Yellow Urine Clarity Clear Clear Urine pH 6.5 5.0-9.0 Urine Specific [place] 1.012 1.001-1.035 Urine Protein Negative Negative Urine Ketones Negative Negative Urine Blood Trace H Negative /uL Urine Nitrite Negative Negative Urine Bilirubin Negative Negative Urine Urobilinogen Normal Negative mg/dL Urine Leukocyte Esterase Negative Negative /uL Urine RBC 9 0 - 4 /hpf Urine Microscopic WBC 1 0-5 /HPF Urine Squamous Epithelial Cells None seen <5 /hpf Urine Bacteria None seen None Seen /hpf Urine Glucose Normal Normal mg/dL White Blood Count 7.1 4.4-10.8 10^3/uL Red Blood Count 2.49 L 4.0-5.20 10^6/uL Hemoglobin 8.2 L 12.2-16.2 g/dL Hematocrit 25.5 L 36.0-46.0 % Mean Corpuscular Volume 102.6 H 80.0-100.0 fL Mean Corpuscular Hemoglobin 32.8 H 28.0-32.0 pg Mean Corpuscular Hemoglobin Concent 32.0 32.0-36.0 g/dL Red Cell Distribution Width 19.0 H 11.8-14.3 % Platelet Count 256 140-450 10^3/uL Mean Platelet Volume 7.8 6.9-10.8 fL Neutrophils (%) (Auto) 74.0 37.0-80.0 % Lymphocytes (%) (Auto) 20.6 10.0-50.0 % Monocytes (%) (Auto) 4.2 0.0-12.0 % Eosinophils (%) (Auto) 0.9 0.0-7.0 % Basophils (%) (Auto) 0.3 0.0-2.0 % Neutrophils # (Auto) 5.2 1.6-8.6 10 ^3/uL Lymphocytes # (Auto) 1.5 0.4-5.4 10 ^3/uL Monocytes # (Auto) 0.3 0-1.3 10 ^3/uL Eosinophils # (Auto) 0.1 0-0.8 10 ^3/uL Basophils # (Auto) 0 0-0.2 10 ^3/uL Nucleated Red Blood Cells 0.0 % Sodium Level 142 136-145 mmol/L Potassium Level 3.6 3.5-5.1 mmol/L Chloride Level 111 H 98-107 mmol/L Carbon Dioxide Level 24 20-31 mmol/L Anion Gap 7 5-15 Blood Urea Nitrogen 39 H 9-23 mg/dL Creatinine 0.86 0.550-1.02 mg/dL Glomerular Filtration Rate Calc 69 >90 mL/min BUN/Creatinine Ratio 45.3 H 10.0-20.0 Serum Glucose 103 74-106 mg/dL Calcium Level 9.4 8.7-10.4 mg/dL Total Bilirubin 0.5 0.2-1.0 mg/dL Aspartate Amino Transferase (AST) 18 13-40 U/L Alanine Aminotransferase (ALT) < 9 7-40 U/L Alkaline Phosphatase 109 46-116 U/L Total Protein 7.3 5.7-8.2 g/dL Albumin 2.9 L 3.2-4.8 g/dL Lipase 25 12-53 U/L Assessment/Plan Assessment/Plan Decubitus ulcer, grade 3 to 4 Possible cellulitis Wound consult Wound/blood culture Wound dressing Empiric IV antibiotic of vancomycin and ceftriaxone IV fluid Dementia Continue memantine History of CVA After taking water, the patient has choking Head CT scan Swollen evaluation History of heart failure Atrial fibrillation, currently EKGs still shows AFib Echo from 12/29/2023 shows EF 65-70% with RVSP 79 Lovenox therapeutic dose Moderate to severe protein malnutrition Albumin is 2.9 Malnutrition consultation Moderate anemia, macrocytic hyperchromic Hb is 8.2 Iron panel and vitamin B12/folate Hepatic cysts Abdominal CT scan shows multiple hepatic cysts with 1 cm hepatic dome hypodense lesion DIET: NPO, swallowing evaluation DVT PROPHYLAXIS: Lovenox CODE STATUS: Goal of care discussed for more than 21 minutes with the patient's granddaughter, full code DISPOSITION: Med/surge Patient's status and paln discussed with the patient's granddaughter through the phone. Case discussed with Dr. Tejeda Plan discussed with: Patient, Other (RN) My Orders Orders - KYE HERNANDEZ RESDIENT Procedure Category Date Status Time Admit ADMIT 04/23/24 Transmitted 23:45 Notify Md Of Changes JERAMIE 04/23/24 Transmitted From Base 23:45 Stat Ekg For Chest JERAMIE 04/23/24 Transmitted Pain 23:45 Date of Service: Apr 23, 2024 Billing Provider: BIANKA TEJEDA MD Common Visit Codes: [id number]-[id number] INP/OBS CARE (HIGH) Secondary Visit Codes: [id number]-[id number] CARE PLAN 30 MINUTES KYE HERNANDEZ RESDIENT Apr 23, 2024 23:47 BIANKA TEJEDA MD Apr 24, 2024 23:08
[2024-04-24] VITALS (8 sets, daily range): BP systolic 121–135; BP diastolic 43–67; PULSE 56–103; RESP 12–20; TEMP 97.1–98.5; O2SAT 94–100
[2024-04-24] MEDS ORDERED: VANCOMYCIN PER PHARMACY 0 MG IV SCH (01:15)
[2024-04-24] MEDS: LACTATED RINGER'S 1,000 ML IV ONE (01:15)
[2024-04-24 01:46] LABS: Basophils # (auto) 0 10 ^3/uL (0-0.2); Basophils % (auto) 0.4 % (0.0-2.0); Eosinophils # (auto) 0 10 ^3/uL (0-0.8); Eosinophils % (auto) 0.5 % (0.0-7.0); Hematocrit 24.3 % (36.0-46.0); Hemoglobin 7.7 g/dL (12.2-16.2); Lymphocytes # (auto) 1.2 10 ^3/uL (0.4-5.4); Lymphocytes % (auto) 15.9 % (10.0-50.0); Mean Corpuscular Hemoglobin 32.8 pg (28.0-32.0); Mean Corpuscular Hgb Conc. 31.9 g/dL (32.0-36.0); Mean Corpuscular Volume 102.9 fL (80.0-100.0); Monocytes # (auto) 0.3 10 ^3/uL (0-1.3); Monocytes % (auto) 4.1 % (0.0-12.0); Neutrophils # (auto) 5.9 10 ^3/uL (1.6-8.6); Neutrophils % (auto) 79.1 % (37.0-80.0); Platelet Count (auto) 248 10^3/uL (140-450); Red Blood Cells 2.36 10^6/uL (4.0-5.20); Red Cell Distribution Width 18.6 % (11.8-14.3); White Blood Cell 7.5 10^3/uL (4.4-10.8)
[2024-04-24 02:00] LABS: INR 1.15 (0.9-1.15)
[2024-04-24 02:07] LABS: Folate (Folic Acid) 7.56 ng/mL (>5.38)
[2024-04-24 02:23] LABS: Alkaline Phosphatase 105 U/L (46-116); Anion Gap 7 (5-15); Aspartate Aminotransferase 17 U/L (13-40); BUN/Creatinine Ratio 41.7 (10.0-20.0); Calcium 9.2 mg/dL (8.7-10.4); Carbon Dioxide 25 mmol/L (20-31); Glucose 100 mg/dL (74-106); Magnesium 2.2 mg/dL (1.6-2.6); Sodium 142 mmol/L (136-145)
[2024-04-24 02:24] LABS: Bilirubin, Total 0.6 mg/dL (0.2-1.0); Total Protein 7.1 g/dL (5.7-8.2)
[2024-04-24 02:58] LABS: Blood Urea Nitrogen 35 mg/dL (9-23); Chloride 110 mmol/L (98-107); Potassium 3.5 mmol/L (3.5-5.1)
[2024-04-24 02:59] LABS: Alanine Aminotransferase < 9 U/L (7-40); Albumin 2.8 g/dL (3.2-4.8)
[2024-04-24 03:06] LABS: % Iron Saturation 16.3 % (15-50)
[2024-04-24] MEDS: cefTRIAXone 1GM/50ML D5W 50 ML IV ONE (03:18)
[2024-04-24] MEDS: VANCOMYCIN 1GM/250ML KIT 250 ML IV ONE (03:42)
--- NOTE | 2024-04-24 04:12 | DVH ---
EXAM: CT HEAD WITHOUT CONTRAST INDICATION: ALOC TECHNIQUE: CT of the head without intravenous contrast. Coronal and sagittal reformatted images are submitted. Radiation Dose : 1. Head: CT Dose: CTDI volume is 57.1 mGy. Dose-length product is 1009.2 mGy*cm The dose indicators for CT are the volume Computed Tomography (CT) Dose Index (CTDIvol) and the Dose Length Product (DLP), and are measured in units of mGy and mGy-cm, respectively. These indicators are not patient dose, but values generated from the CT scanner acquisition factors. The report includes radiation exposure data for exposures received during this examination. All CT scans at this medical facility are performed using dose modulation techniques as appropriate to a performed exam including the following: Automated exposure control was utilized; adjustment of the MA and/or KV according to patient size; and use of iterative reconstruction technique. COMPARISON: CT HEAD WITHOUT CONTRAST on DOS: 11/04/23 FINDINGS: There is no evidence of acute intracranial hemorrhage, extra-axial collection, mass effect, midline s hift, herniation or hydrocephalus. There are periventricular and moderate hypodensities, nonspecific, but likely reflecting sequelae of chronic microvascular ischemic changes. There is an old right parietal lobe infarct. Old left parieta l lobe infarct. The ventricles, sulci and cisterns are age appropriate. The bradford-white differentiation is intact. There is opacification of the bilateral mastoid air cells. There is mucosal thickening in the sphenoi d sinus No depressed calvarial fracture. The surrounding soft tissues are unremarkable. IMPRESSION: 1. No evidence of acute intracranial abnormality. 2. Paranasal sinus disease.
--- NOTE | 2024-04-24 04:34 | DVH ---
CHEST RADIOGRAPH Indication: SOB Technique: Single frontal view of the chest was obtained Comparison: XY CHEST XRAY 1 VIEW on DOS: 01/01/24 FINDINGS: Lines and Tubes: None Lungs: Hazy left upper lung zone opacity. Pleura: No effusion. No pneumothorax. Cardiomediastinal contours: Unremarkable Bones: No acute osseous abnormality. IMPRESSION: Hazy left upper lung zone opacity which may represent atelectasis, pneumonia or asymmetric edema.
[2024-04-24] MEDS ORDERED: ENOXAPARIN SOD 100 MG/1 ML SYRINGE SC SCH (10:00)
[2024-04-24] MEDS ORDERED: ENOXAPARIN SOD 40 MG/0.4 ML SYRINGE SC SCH (10:35)
[2024-04-24] MEDS: ENOXAPARIN SOD 40 MG/0.4 ML SYRINGE SC SCH (10:37)
--- NOTE | 2024-04-24 10:52 | DVHINCON2 ---
Date of service: Apr 24, 2024 History of Present Illness 79-year-old female bedridden patient with a history of multiple medical problems including chronic pressure ulcer of her sacrum brought in secondary to increased purulent drainage from the area. Past Medical History CHF. CVA. Atrial fibrillation. Hypertension. Dementia Past Surgical History Left knee surgery Family History: Patient reports no known family medical history. Family History Noncontributory Social History No alcohol, tobacco, IV drug use Allergies: Coded Allergies: NO KNOWN ALLERGIES (Unverified , 02/10/14) Home Meds Active Scripts Ferrous Sulfate (Ferrous Sulfate) 325 Mg Tab, 325 MG PO DAILY for 30 Days, #30 TAB 3 Refills Prov:RAI MIMS [facility] 01/02/24 Doxycycline Monohydrate (Doxycycline Monohydrate) 100 Mg Cap, 1 CAP PO BID for 5 Days, #28 CAP Prov:RAI MIMS [facility] 01/02/24 Cefpodoxime Proxetil (Cefpodoxime Proxetil) 200 Mg Tab, 1 TAB PO BID for 5 Days, #10 TAB Prov:RAI MIMS [facility] 01/02/24 Amlodipine Besylate (NORVASC TABLET) 5 Mg Tb, 10 MG PO DAILY for 30 Days, #60 TAB 2 Refills Prov:RAI MIMS [facility] 01/02/24 Reported Medications Sildenafil Citrate (Sildenafil Citrate) 20 Mg Tab, 1 TAB PO TID 12/28/23 Diclofenac Sodium (Topical) (Diclofenac Sodium) 1 % Gel, 1 APPLIC TOP TID for 28 Days, #400 12/28/23 Furosemide (Furosemide) 20 Mg Tab, 1 TAB PO DAILY 12/28/23 Metoprolol Tartrate (Lopressor) 25 Mg Tb, 0.5 TAB PO DAILY 12/28/23 Gabapentin (Gabapentin) 300 Mg Cap, 1 CAP PO BID for 30 Days, #60 11/04/23 Apixaban Base (ELIQUIS) 2.5 Mg Tab, 1 TAB PO BID 11/04/23 Potassium Chloride (POTASSIUM CHLORIDE CR) 10 Meq Tb, 1 TAB PO DAILY WITH FOOD, TAB 09/25/23 Losartan Potassium (Losartan Potassium) 50 Mg Tab, 50 MG PO DAILY, MG TAKE 1 TABLET BY MOUTH EVERY DAY. HOLD IF BLOOD PRESSURE IS LESS THAN 110/60 09/25/23 Atorvastatin Calcium (ATORVASTATIN CALCIUM) 40 Mg Tab, 40 MG PO DAILY, TAB 09/25/23 Current Medications Current Medications Medications (Trade) Dose Ordered Sig/Raphael Route PRN Reason Start Time Stop Time Status Last Admin Vancomycin HCl 0 ml @ 0 mls/hr UD IV 04/24/24 01:15 Ceftriaxone Sodium 50 ml @ 100 mls/hr DAILY@0200 IV 04/25/24 02:00 Enoxaparin Sodium (Lovenox) 50 mg Q12HR SC 04/24/24 10:00 Morphine Sulfate 1 mg Q4HP PRN IV MODERATE PAIN (4-6 PAIN SCALE) 04/24/24 01:15 Vital Signs Vital Signs Date Time Temp Pulse Resp B/P (MAP) Pulse Ox O2 Delivery O2 Flow Rate FiO2 04/24/24 09:32 98.5 85 20 128/66 (86) 96 98.5 04/24/24 04:27 Room Air* 0 21 Physical Exam GEN: Frail elderly female confused. HEENT: Temporal wasting. CV: Irregularly irregular Respiratory: Coarse breath sounds ABD: Soft Skin: There is a 5 x 5 cm stage IV pressure ulcer in the sacrococcygeal region with necrotic tissue with some purulent drainage. There is also some epididymal ecchymosis with some skin loss in the buttock region Labs/Diagnostic Data Labs Test 04/24/24 01:38 04/23/24 20:15 04/23/24 18:00 Range/Units White Blood Count 7.5 4.4-10.8 10^3/uL Red Blood Count 2.36 L 4.0-5.20 10^6/uL Hemoglobin 7.7 L 12.2-16.2 g/dL Hematocrit 24.3 L 36.0-46.0 % Mean Corpuscular Volume 102.9 H 80.0-100.0 fL Mean Corpuscular Hemoglobin 32.8 H 28.0-32.0 pg Mean Corpuscular Hemoglobin Concent 31.9 L 32.0-36.0 g/dL Red Cell Distribution Width 18.6 H 11.8-14.3 % Platelet Count 248 140-450 10^3/uL Mean Platelet Volume 7.3 6.9-10.8 fL Neutrophils (%) (Auto) 79.1 37.0-80.0 % Lymphocytes (%) (Auto) 15.9 10.0-50.0 % Monocytes (%) (Auto) 4.1 0.0-12.0 % Eosinophils (%) (Auto) 0.5 0.0-7.0 % Basophils (%) (Auto) 0.4 0.0-2.0 % Neutrophils # (Auto) 5.9 1.6-8.6 10 ^3/uL Lymphocytes # (Auto) 1.2 0.4-5.4 10 ^3/uL Monocytes # (Auto) 0.3 0-1.3 10 ^3/uL Eosinophils # (Auto) 0 0-0.8 10 ^3/uL Basophils # (Auto) 0 0-0.2 10 ^3/uL Nucleated Red Blood Cells 0.0 % Prothrombin Time 12.0 H 9.3-11.8 sec Prothrombin Time INR 1.15 0.9-1.15 Sodium Level 142 136-145 mmol/L Potassium Level 3.5 3.5-5.1 mmol/L Chloride Level 110 H 98-107 mmol/L Carbon Dioxide Level 25 20-31 mmol/L Anion Gap 7 5-15 Blood Urea Nitrogen 35 H 9-23 mg/dL Creatinine 0.84 0.550-1.02 mg/dL Glomerular Filtration Rate Calc 71 >90 mL/min BUN/Creatinine Ratio 41.7 H 10.0-20.0 Serum Glucose 100 74-106 mg/dL Lactic Acid Level 1.0 0.4-2.0 mmol/L Calcium Level 9.2 8.7-10.4 mg/dL Magnesium Level 2.2 1.6-2.6 mg/dL Iron Level 28 L 50-170 ug/dL Total Iron Binding Capacity 172 L 250-425 ug/dL Percent Iron Saturation 16.3 15-50 % Ferritin 327.3 H 10-291 ng/mL Total Bilirubin 0.6 0.2-1.0 mg/dL Aspartate Amino Transferase (AST) 17 13-40 U/L Alanine Aminotransferase (ALT) < 9 7-40 U/L Alkaline Phosphatase 105 46-116 U/L Ammonia < 10 L 11-32 umol/L Total Protein 7.1 5.7-8.2 g/dL Albumin 2.8 L 3.2-4.8 g/dL Vitamin B12 Level 1447 H 211-911 pg/mL Vitamin D 25-Hydroxy 62.0 30.0-100 ng/mL Folic Acid 7.56 >5.38 ng/mL Thyroid Stimulating Hormone (TSH) 4.23 0.55-4.78 uIU/mL Urine Color Light-yellow Yellow Urine Clarity Clear Clear Urine pH 6.5 5.0-9.0 Urine Specific [place] 1.012 1.001-1.035 Urine Protein Negative Negative Urine Ketones Negative Negative Urine Blood Trace H Negative /uL Urine Nitrite Negative Negative Urine Bilirubin Negative Negative Urine Urobilinogen Normal Negative mg/dL Urine Leukocyte Esterase Negative Negative /uL Urine RBC 9 0 - 4 /hpf Urine Microscopic WBC 1 0-5 /HPF Urine Squamous Epithelial Cells None seen <5 /hpf Urine Bacteria None seen None Seen /hpf Urine Glucose Normal Normal mg/dL Lipase 25 12-53 U/L Microbiology Date/Time Source Procedure Growth Status 04/23/24 17:40 Sacrum Gram Stain Pending Resulted 04/23/24 17:40 Sacrum Wound Culture - Preliminary Resulted Assessment 1. Infected stage IV sacrococcygeal pressure ulcer Plan/Recommendation 1. Surgical debridement of the infected sacrococcygeal pressure ulcer Informed consent: The surgery and its risks including but not limited to infection, bleeding, perioperative [place] or stroke were explained to the patient's daughter and granddaughter. All questions were answered to their satisfaction. They expressed verbal understanding and wished to proceed with the surgery. Plan discussed with: Daughter YINKA ESCALERA MD Apr 24, 2024 10:52
[2024-04-24] MEDS ORDERED: fentaNYL CITRATE 100 MCG/2 ML VL ONE (12:36)
[2024-04-24] MEDS ORDERED: MIDAZOLAM HCL 2MG/2ML 2ml VIAL (1mg/ml) ONE (12:36)
[2024-04-24] MEDS ORDERED: DexAMETHasone SOD PHOS 10MG/1ML VIAL INJ ONE (13:00)
[2024-04-24] MEDS ORDERED: PROPOFOL 10 MG/ML 20 ML IV ONE (13:00)
[2024-04-24] MEDS: LIDOCAINE W/ EPINEPHRINE 1% 20ML VIAL ONE (13:57)
--- NOTE | 2024-04-24 14:19 | DVHOP2 ---
Operative Report - 2 Report Details Date: 04/24/24 Preop Diagnosis: Infected necrotic sacral pressure ulcer stage IV Postop Diagnosis: Same Surgeon: Eliezer Fagan MD Delivery Man: None Anesthesiologist: Dr Sherwood Anesthesia: Mac, Local Consent: The surgery and its risks including but not limited to infection, bleeding requiring possible blood transfusion with the risk of hepatitis or HIV infection, possible perioperative [place] or stroke were explained to the patient's daughter and granddaughter. All questions were answered to their satisfaction. They expressed verbal understanding and wished to proceed with the surgery. Complications: None Estimated Blood Loss: 10 mL Fluids: 700 mL Findings: Necrotic stage IV pressure ulcer with necrotic skin, muscle and soft tissue Name of Procedure Performed Surgical debridement of stage IV infected necrotic sacral pressure ulcer Procedure Details Procedure Details: After induction of monitored anesthesia, patient was placed in the left lateral decubitus position and her sacral region was prepped and draped in standard judy gical fashion. Approximately 13 mL of 1% lidocaine with epinephrine was used as local anesthesia. Sharp debridement was performed to excise all grossly necrotic tissues including the skin soft tissue and muscle down to the sacrum. There was no obvious bony exposure noted. Debridement was performed until healthier tissue and bleeding was encountered. The area was then checked for hemostasis and irrigated with diluted Betadine irrigation. The total size ended up being proximally 10 x 5 cm in size. The area was then packed with 4 x 4 gauze with Betadine irrigation. Surgical site was cleaned and dried dressings were applied. Sponge, needle, instrument count at the end of the case were reported to be correct by the nursing staff. The patient tolerated procedure well. At the time of dictation she is being transferred to recovery in stable condition. Specimen: Gram stain and culture Condition Stable Disposition Still a Patient ELIEZER FAGAN MD Apr 24, 2024 14:19
[2024-04-25] VITALS (9 sets, daily range): BP systolic 95–150; BP diastolic 35–61; PULSE 49–78; RESP 16–20; TEMP 97–98.6; O2SAT 94–100
[2024-04-25] MEDS: cefTRIAXone 1GM/50ML D5W 50 ML IV SCH (01:10)
[2024-04-25] MEDS: VANCOMYCIN 500mg/100mL 100 ML IV SCH (11:15)
--- NOTE | 2024-04-25 11:49 | ECG ---
[facility] Test Date: 2024-04-24 Test Time: 14:36:25 Pat Name: COOKIE TALLEY Department: Room: 0281 Gender: F Insurance Sales Manager: ANG : 1945 Requested By: LIZZETTE COREA Order Number: [id number] Reading MD: Chaz Montejo Measurements Intervals [place] Rate: 100 P: 0 NV: 0 QRS: 76 QRSD: 74 T: -38 QT: 352 QTc: 454 Interpretive Statements Atrial fibrillation with premature ventricular or aberrantly conducted complexes Anterior infarct , age undetermined ST & T wave abnormality, consider lateral ischemia or digitalis effect LVH with secondary repolarization abnormality Electronically Signed On 04-26-2024 9:53:58 PST by Chaz Montejo Please click the below link to view image of tracing.
[2024-04-25] MEDS ORDERED: MEMA1TAB3 PO (12:44)
[2024-04-25] MEDS ORDERED: ALBUTEROL SULF 2.5 MG/0.5ML(0.5%) NEB SOLN NEB PRN (13:15)
[2024-04-25] MEDS ORDERED: IPRATROPIUM BROM 0.5 MG/2.5ML INH SOL NEB PRN (13:15)
--- NOTE | 2024-04-25 13:23 | DVHPN2 ---
Progress Note - Dictate Date Seen: Apr 25, 2024 Medical Necessity Reason Pt with a Central, PICC or Fol: No Subjective E: no major events o/n. no complaints. vital signs Vital Sign Date Time Temp Pulse Resp B/P (MAP) Pulse Ox O2 Delivery O2 Flow Rate FiO2 04/25/24 08:58 97.5 59 20 135/58 (83) 98 97.5 04/24/24 20:00 Room Air* 2 95 Nasal Cannula* 95 Total Intake and Output 04/24/24 04/24/24 04/25/24 15:00 23:00 07:00 Intake Total 160 ml 0 ml 50 ml Output Total 50 ml 250 ml Balance 160 ml -50 ml -200 ml medications Current Medications Medications Dose Ordered Sig/Raphael Route Start Time Stop Time Status Last Admin Dose Admin Vancomycin HCl 0 ml @ 0 mls/hr UD IV 04/24/24 01:15 Ceftriaxone Sodium 50 ml @ 100 mls/hr DAILY@0200 IV 04/25/24 02:00 04/25/24 01:10 100 MLS/HR Morphine Sulfate 1 mg Q4HP PRN IV 04/24/24 01:15 Enoxaparin Sodium 40 mg DAILY SC 04/24/24 10:37 Hold 04/25/24 11:15 40 MG Vancomycin HCl 100 ml @ 200 mls/hr DAILY@1100 IV 04/25/24 11:00 04/25/24 11:15 200 MLS/HR Apixaban 2.5 mg BID PO 04/25/24 22:00 Ferrous Sulfate 325 mg DAILY PO 04/26/24 10:00 Memantine 5 mg BID PO 04/25/24 22:00 Sildenafil Citrate 20 mg TID PO 04/25/24 14:00 Atorvastatin Calcium 40 mg DAILY PO 04/26/24 10:00 Enteral Nutritional Formula 240 ml TIDWM PO 04/25/24 18:00 Pantoprazole Sodium 40 mg DAILY IV 04/26/24 10:00 Ipratropium [place] 0.5 mg Q6HPRN PRN NEB 04/25/24 13:15 Albuterol 2.5 mg Q6HPRN PRN NEB 04/25/24 13:15 objective GEN: NAD SACRUM: packing intact. laboratory and microbiology Laboratory Tests 04/24/24 01:38 Test 04/24/24 01:38 Range/Units Serum Glucose 100 74-106 mg/dL Assessment/Plan A: 1. Infected stage IV sacrococcygeal pressure ulcer s/p surgical debridement. P: 1. recommend VAC dressing in a day or 2 once the wound is dry cleaner hand. 2. surgery signing off. Plan discussed with: YINKA Trujillo MD Apr 25, 2024 13:23
[2024-04-25] MEDS: MORPHINE SULFATE INJ 2 MG/ml SYRG IV PRN (15:03)
[2024-04-25] MEDS: SILDENAFIL CITRATE 20 MG TAB PO SCH (15:03)
--- NOTE | 2024-04-25 16:16 | DVHINCON2 ---
Date of service: Apr 25, 2024 Family History: Patient reports no known family medical history. Allergies: Coded Allergies: NO KNOWN ALLERGIES (Unverified , 02/10/14) Home Meds Active Scripts Ferrous Sulfate (Ferrous Sulfate) 325 Mg Tab, 325 MG PO DAILY for 30 Days, #30 TAB 3 Refills Prov:RAI MIMS [facility] 01/02/24 Doxycycline Monohydrate (Doxycycline Monohydrate) 100 Mg Cap, 1 CAP PO BID for 5 Days, #28 CAP Prov:RAI MIMS [facility] 01/02/24 Cefpodoxime Proxetil (Cefpodoxime Proxetil) 200 Mg Tab, 1 TAB PO BID for 5 Days, #10 TAB Prov:RAI MIMS [facility] 01/02/24 Amlodipine Besylate (NORVASC TABLET) 5 Mg Tb, 10 MG PO DAILY for 30 Days, #60 TAB 2 Refills Prov:RAI MIMS [facility] 01/02/24 Reported Medications Memantine Hydrochloride (Memantine HCl) 5 Mg Tab, 1 TAB PO BID 04/25/24 Sildenafil Citrate (Sildenafil Citrate) 20 Mg Tab, 1 TAB PO TID 12/28/23 Diclofenac Sodium (Topical) (Diclofenac Sodium) 1 % Gel, 1 APPLIC TOP TID for 28 Days, #400 12/28/23 Furosemide (Furosemide) 20 Mg Tab, 1 TAB PO DAILY 12/28/23 Metoprolol Tartrate (Lopressor) 25 Mg Tb, 0.5 TAB PO DAILY 12/28/23 Gabapentin (Gabapentin) 300 Mg Cap, 1 CAP PO BID for 30 Days, #60 11/04/23 Apixaban Base (ELIQUIS) 2.5 Mg Tab, 1 TAB PO BID 11/04/23 Potassium Chloride (POTASSIUM CHLORIDE CR) 10 Meq Tb, 1 TAB PO DAILY WITH FOOD, TAB 09/25/23 Losartan Potassium (Losartan Potassium) 50 Mg Tab, 50 MG PO DAILY, MG TAKE 1 TABLET BY MOUTH EVERY DAY. HOLD IF BLOOD PRESSURE IS LESS THAN 110/60 09/25/23 Atorvastatin Calcium (ATORVASTATIN CALCIUM) 40 Mg Tab, 40 MG PO DAILY, TAB 09/25/23 Current Medications Current Medications Medications (Trade) Dose Ordered Sig/Raphael Route PRN Reason Start Time Stop Time Status Last Admin Ceftriaxone Sodium 50 ml @ 100 mls/hr DAILY@0200 IV 04/25/24 02:00 04/25/24 01:10 Vancomycin HCl 100 ml @ 200 mls/hr DAILY@1100 IV 04/25/24 11:00 04/25/24 11:15 Apixaban (Eliquis) 2.5 mg BID PO 04/25/24 22:00 Ferrous Sulfate 325 mg DAILY PO 04/26/24 10:00 Memantine (Namenda Tablet) 5 mg BID PO 04/25/24 22:00 Sildenafil Citrate (Revatio) 20 mg TID PO 04/25/24 14:00 04/25/24 15:03 Atorvastatin Calcium (Lipitor) 40 mg DAILY PO 04/26/24 10:00 Enteral Nutritional Formula (NutriHep RTU 240 mL Unflavored) 240 ml TIDWM PO 04/25/24 18:00 Pantoprazole Sodium (Protonix) 40 mg DAILY IV 04/26/24 10:00 Ipratropium [place] (Atrovent Medneb) 0.5 mg Q6HPRN PRN NEB SHORTNESS OF BREATH 04/25/24 13:15 Albuterol (Ventolin Medneb) 2.5 mg Q6HPRN PRN NEB SHORTNESS OF BREATH 04/25/24 13:15 Vital Signs Vital Signs Date Time Temp Pulse Resp B/P (MAP) Pulse Ox O2 Delivery O2 Flow Rate FiO2 04/25/24 15:03 78 20 130/49 04/25/24 14:23 100 Nasal Cannula* 1 04/25/24 08:58 97.5 97.5 Labs/Diagnostic Data Labs Test 04/24/24 01:38 04/23/24 20:15 04/23/24 18:00 Range/Units White Blood Count 7.5 4.4-10.8 10^3/uL Red Blood Count 2.36 L 4.0-5.20 10^6/uL Hemoglobin 7.7 L 12.2-16.2 g/dL Hematocrit 24.3 L 36.0-46.0 % Mean Corpuscular Volume 102.9 H 80.0-100.0 fL Mean Corpuscular Hemoglobin 32.8 H 28.0-32.0 pg Mean Corpuscular Hemoglobin Concent 31.9 L 32.0-36.0 g/dL Red Cell Distribution Width 18.6 H 11.8-14.3 % Platelet Count 248 140-450 10^3/uL Mean Platelet Volume 7.3 6.9-10.8 fL Neutrophils (%) (Auto) 79.1 37.0-80.0 % Lymphocytes (%) (Auto) 15.9 10.0-50.0 % Monocytes (%) (Auto) 4.1 0.0-12.0 % Eosinophils (%) (Auto) 0.5 0.0-7.0 % Basophils (%) (Auto) 0.4 0.0-2.0 % Neutrophils # (Auto) 5.9 1.6-8.6 10 ^3/uL Lymphocytes # (Auto) 1.2 0.4-5.4 10 ^3/uL Monocytes # (Auto) 0.3 0-1.3 10 ^3/uL Eosinophils # (Auto) 0 0-0.8 10 ^3/uL Basophils # (Auto) 0 0-0.2 10 ^3/uL Nucleated Red Blood Cells 0.0 % Prothrombin Time 12.0 H 9.3-11.8 sec Prothrombin Time INR 1.15 0.9-1.15 Sodium Level 142 136-145 mmol/L Potassium Level 3.5 3.5-5.1 mmol/L Chloride Level 110 H 98-107 mmol/L Carbon Dioxide Level 25 20-31 mmol/L Anion Gap 7 5-15 Blood Urea Nitrogen 35 H 9-23 mg/dL Creatinine 0.84 0.550-1.02 mg/dL Glomerular Filtration Rate Calc 71 >90 mL/min BUN/Creatinine Ratio 41.7 H 10.0-20.0 Serum Glucose 100 74-106 mg/dL Lactic Acid Level 1.0 0.4-2.0 mmol/L Calcium Level 9.2 8.7-10.4 mg/dL Magnesium Level 2.2 1.6-2.6 mg/dL Iron Level 28 L 50-170 ug/dL Total Iron Binding Capacity 172 L 250-425 ug/dL Percent Iron Saturation 16.3 15-50 % Ferritin 327.3 H 10-291 ng/mL Total Bilirubin 0.6 0.2-1.0 mg/dL Aspartate Amino Transferase (AST) 17 13-40 U/L Alanine Aminotransferase (ALT) < 9 7-40 U/L Alkaline Phosphatase 105 46-116 U/L Ammonia < 10 L 11-32 umol/L Total Protein 7.1 5.7-8.2 g/dL Albumin 2.8 L 3.2-4.8 g/dL Vitamin B12 Level 1447 H 211-911 pg/mL Vitamin D 25-Hydroxy 62.0 30.0-100 ng/mL Folic Acid 7.56 >5.38 ng/mL Thyroid Stimulating Hormone (TSH) 4.23 0.55-4.78 uIU/mL Urine Color Light-yellow Yellow Urine Clarity Clear Clear Urine pH 6.5 5.0-9.0 Urine Specific [place] 1.012 1.001-1.035 Urine Protein Negative Negative Urine Ketones Negative Negative Urine Blood Trace H Negative /uL Urine Nitrite Negative Negative Urine Bilirubin Negative Negative Urine Urobilinogen Normal Negative mg/dL Urine Leukocyte Esterase Negative Negative /uL Urine RBC 9 0 - 4 /hpf Urine Microscopic WBC 1 0-5 /HPF Urine Squamous Epithelial Cells None seen <5 /hpf Urine Bacteria None seen None Seen /hpf Urine Glucose Normal Normal mg/dL Lipase 25 12-53 U/L Microbiology Date/Time Source Procedure Growth Status 04/24/24 06:00 Nose MRSA Screen - Final Complete 04/23/24 18:00 Blood Blood Culture - Preliminary NO GROWTH AFTER 24 HOURS OF INCUBATION. Resulted Plan/Recommendation ASSESSMENT AND PLAN: ID Problem List: - Worsening stage 4 sacral decubitus ulcer - Dementia - Congestive heart failure (CHF) - Stroke - LLE cellulitis - possible pneumonia Assessment This is a female patient with a history of CHF, stroke, and advanced dementia presenting for evaluation of a worsening stage 4 sacral decubitus ulcer (measured at approximately 7 x 7 cm) with purulent discharge. She is bed bound and was recently debrided on 04/24/2024. Currently on IV vancomycin and ceftriaxone, with plan to switch to oral antibiotics pending culture results. Plan: - Continue IV vancomycin and ceftriaxone - Await and follow up on sacral wound culture results; will consider transition to oral antibiotics based on sensitivities - recommend outpatient would care, pressure offloading as outpatient - Monitor for signs of further infection or complications (fever, leukocytosis, hemodynamic changes) - Evaluate and address potential causes of edema in the left lower extremity - Ensure adequate nutrition and hydration; consider nutritional support for wound healing - Continue to manage CHF and stroke sequelae as indicated Isolation Precautions: standard Assessment and plan was discussed with the patient (when possible) and/or family as written above Plan is subject to change pending new information or diagnostics. Updates may be added as addendum. Thank you for the consult. Please contact us with any questions or concerns. Electronically signed by: Kevon Hodges M.D. 04/25/2024 Encounter Date: 04/25/2024 Patient Name: Grace Ghotra Provider: Kevon Hodges History: The patients chart and medications were reviewed in detail, and the patient was seen and examined. History obtained from available records and partial interaction with patient/family. She has a one-month history of increasing purulent drainage from a sacral bed sore. She is bed bound, with known advanced dementia. Noted history of previous stroke, congestive heart failure, and left knee surgery. Home medications include corrected spellings: furosemide (Lasix), a statin (unspecified), iron, apixaban, trazodone, and memantine. She denies fever, cough, or shortness of breath. No current tobacco, alcohol, or illicit drug use. Review of Systems: A complete 10-system review was performed and is negative except as noted below or in the HPI: - CONSTITUTIONAL: Denies fever or chills. - RESPIRATORY: Denies cough or shortness of breath. - SKIN: Worsening sacral pressure ulcer with purulent drainage. - NEUROLOGICAL: History of stroke; advanced dementia. Past Medical History: - Dementia CHF - Stroke Past Surgical History: - Left knee surgery (date unspecified) Home Medications: - Furosemide (Lasix) - Statin (unspecified) - Iron supplement - Apixaban - Trazodone - Memantine Allergies: - No known medication allergies Family History: - Not specifically provided Social History: - Patient is bed bound - Denies smoking history - Denies alcohol use - Denies illicit drug use Objective: Vital Signs on Arrival: - Temp: 98.7 F - BP: 117/80 mmHg - Pulse: 83 bpm - RR: 15 breaths/min - SpO2: 95% on room air (Most recent vitals remain similar with no significant changes.) Admission Weight: - Not specifically provided in transcript Physical Exam: General: NAD Neck: Supple. No masses. HEENT: PERRL. Normal lids and conjunctiva. Moist mucous membranes. Oropharynx without lesions, exudates, or excessive erythema. Normal appearance of the external aspects of the nose and ears. Heart: Regular rhythm, normal rate. No murmur. Mild left lower extremity swelling below the knee. Lungs: Normal respiratory effort. Clear to auscultation bilaterally. No wheezes. No crackles. Abdomen: Soft. Non-tender. Non-distended. No masses or abdominal hernia. Msk: No digital cyanosis. Normal strength and tone in all 4 limbs. Skin: Warm and dry, no rashes. Stage 4 sacral decubitus ulcer measuring approximately 7 x 7 cm with purulent discharge. Neuro: Alert to the extent permitted by dementia. No focal deficits on exam. No facial droop or slurred speech. Extra-ocular movements intact. Sensation intact to soft touch in all 4 limbs. Psych: Appears consistent with advanced dementia. Full affect when responsive. Oriented variably to person and place only. Diagnostic Studies: Per the transcript, basic labs show creatinine ~0.86 mg/dL, liver enzymes within normal limits. No new imaging findings aside from prior chest X-ray which may show minimal left lung opacities (possibly atelectasis) and non-contributory head CT with no acute intracranial pathology. Pertinent Imaging: - CT of the abdomen/pelvis (from prior hospitalization) noted possible edema and miscellaneous incidental findings, but no acute surgical pathology specifically identified. - Recent debridement on 04/24/[address] Foster with operative cultures pending final results. Plan discussed with: Patient KEVON HODGES MD Apr 25, 2024 16:16
--- NOTE | 2024-04-25 17:11 | DVHPN2 ---
Progress Note - Dictate Date Seen: Apr 25, 2024 Medical Necessity Reason Pt with a Central, PICC or Fol: No vital signs Vital Sign Date Time Temp Pulse Resp B/P (MAP) Pulse Ox O2 Delivery O2 Flow Rate FiO2 04/25/24 16:17 97.5 78 20 130/49 100 1.0 24 97.5 04/25/24 14:23 Nasal Cannula* Total Intake and Output 04/24/24 04/24/24 04/25/24 15:00 23:00 07:00 Intake Total 160 ml 0 ml 50 ml Output Total 50 ml 250 ml Balance 160 ml -50 ml -200 ml medications Current Medications Medications Dose Ordered Sig/Raphael Route Start Time Stop Time Status Last Admin Dose Admin Vancomycin HCl 0 ml @ 0 mls/hr UD IV 04/24/24 01:15 Ceftriaxone Sodium 50 ml @ 100 mls/hr DAILY@0200 IV 04/25/24 02:00 04/25/24 01:10 100 MLS/HR Morphine Sulfate 1 mg Q4HP PRN IV 04/24/24 01:15 04/25/24 15:03 1 MG Enoxaparin Sodium 40 mg DAILY SC 04/24/24 10:37 Hold 04/25/24 11:15 40 MG Vancomycin HCl 100 ml @ 200 mls/hr DAILY@1100 IV 04/25/24 11:00 04/25/24 11:15 200 MLS/HR Apixaban 2.5 mg BID PO 04/25/24 22:00 Ferrous Sulfate 325 mg DAILY PO 04/26/24 10:00 Memantine 5 mg BID PO 04/25/24 22:00 Sildenafil Citrate 20 mg TID PO 04/25/24 14:00 04/25/24 15:03 20 MG Atorvastatin Calcium 40 mg DAILY PO 04/26/24 10:00 Enteral Nutritional Formula 240 ml TIDWM PO 04/25/24 18:00 Pantoprazole Sodium 40 mg DAILY IV 04/26/24 10:00 Ipratropium [place] 0.5 mg Q6HPRN PRN NEB 04/25/24 13:15 Albuterol 2.5 mg Q6HPRN PRN NEB 04/25/24 13:15 objective General Appearance: alert, no distress HEENT: EOMI, PERRLA, normal external inspect of ears, no icterus, no nasal drainage Neck: no carotid bruit, no jugular venous distention (JVD), no lymphadenopathy Chest: normal thorax Respiratory: Cardiovascular: regular rate and rhythm, no diastolic murmur, no jugular venous distention (JVD), no rub, no systolic murmur Abdominal: soft, no hepatomegaly, no mass, no splenomegaly Genitourinary: grossly normal external Musculoskeletal: no joint tenderness, no swelling Extremities: normal pulses, no calf tenderness, no clubbing, no cyanosis, no edema Skin: no bruising, no jaundice, no rash Neurological: alert, No focal deficit laboratory and microbiology Laboratory Tests 04/24/24 01:38 Test 04/24/24 01:38 Range/Units Serum Glucose 100 74-106 mg/dL Problem List 1. Sepsis IV Abx, monitoring, ID Consult 2. 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 Pneumonia, Left upper lobe, community acquired IV Abx, monitoring 4. Dementia Monitoring 5. Necrotic Sacral Pressure ulcer Stage IV Wound care consult 6. Pulmonary HTN Medication, monitoring 7. Persistent A-fib Medication, monitoring 8. Moderate protein caloric malnutrition Diet education, monitoring Assessment/Plan Subjective: Patient is severely hard of hearing. Patient is complaining of pain. Objective: Patient has dementia and is severely hard of hearing. Patient also has a history of persistent A-fib and pulmonary hypertension. Patient was brought in for a non-healing wound to her coccyx. Patient has a stage four decubitus ulcer present on admission, status post irrigation and debridement by general surgeon Dr. Fagan. Patient is now complaining of pain. Patient is awake and alert. She did not previously pass the swallow exam because she was lethargic. Plan: Repeat swallow evaluation. Start Boost three times a day for additional nutrition. Continue home medications for dementia and pulmonary hypertension. Hold blood pressure medications as patients blood pressure has been soft, and she has been having sinus bradycardia with heart rates in the 40s and 50s. Cardiology consult. Patient is a chronic O2 user. Pulmonary consult. Monitor daily labs and continue antibiotics. ID consult. Plan discussed with: Patient, Other DALE CALIXTO NP Apr 25, 2024 17:11
[2024-04-25] MEDS: NutriHep RTU 240 mL Unflavored PO SCH (17:45)
[2024-04-25 21:18] LABS: Chloride 105 mmol/L (98-107)
[2024-04-25 21:19] LABS: Anion Gap 7 (5-15)
[2024-04-25 21:42] LABS: BUN/Creatinine Ratio 28.4 (10.0-20.0)
[2024-04-25 21:43] LABS: Blood Urea Nitrogen 33 mg/dL (9-23); Calcium 8.4 mg/dL (8.7-10.4); Carbon Dioxide 20 mmol/L (20-31); Glucose 134 mg/dL (74-106); Sodium 132 mmol/L (136-145)
[2024-04-25] MEDS: MEMANTINE HCL 5 MG TAB PO SCH (21:53)
[2024-04-25] MEDS: APIXABAN 2.5 MG TAB PO SCH (21:53)
--- NOTE | 2024-04-25 22:51 | DVHINCON2 ---
Date of service: Apr 25, 2024 Referring Physician Lilia Marcos NP Reason for Consultation Acute hypoxic respiratory failure, pulmonary HTN, and pneumonia History of Present Illness A 79-year-old woman with past medical history of CHF, CVA, AFib, hypertension, dementia, brought to the ED on 04/23/24 due to worsening of bedsore. Per patient's granddaughter, the patient has a sacral wound since 1 month, which has recently worsened and has been associated with purulent discharge. The patient has been bed-bound since 2 months due to advanced dementia and previous CVA history. Per patient's grand daughter, patient's is recently more weak w/ reduced oral intake. Denies any fever, cough, shortness of breath, or any recent changes in bowel and bladder. Patient was admitted for further care and pulmonary consultation is requested for evaluation and management of acute hypoxic respiratory failure, pulmonary HTN, and pneumonia. Review of Systems: 14-point review of systems negative unless otherwise noted above. Past Medical History: CHF, CVA, AFib, hypertension, dementia and bedsore Past Surgical History: Left knee surgery Medications: Reviewed. Lasix, gabapentin, iron, apixaban, trazodone, memantine Allergies: No known drug allergies. Family History: No family history of premature CAD. No family history of lung disorders. Social History: Patient is bed-bound due to advanced dementia and previous CVA history, lives with the daughter and granddaughter at home. Ex-smoker No alcohol or illicit drug use. Family History: Patient reports no known family medical history. Allergies: Coded Allergies: NO KNOWN ALLERGIES (Unverified , 02/10/14) Home Meds Active Scripts Ferrous Sulfate (Ferrous Sulfate) 325 Mg Tab, 325 MG PO DAILY for 30 Days, #30 TAB 3 Refills Prov:RAI MIMS RESIDENT 01/02/24 Doxycycline Monohydrate (Doxycycline Monohydrate) 100 Mg Cap, 1 CAP PO BID for 5 Days, #28 CAP Prov:RAI MIMS RESIDENT 01/02/24 Cefpodoxime Proxetil (Cefpodoxime Proxetil) 200 Mg Tab, 1 TAB PO BID for 5 Days, #10 TAB Prov:RAI MIMS RESIDENT 01/02/24 Amlodipine Besylate (NORVASC TABLET) 5 Mg Tb, 10 MG PO DAILY for 30 Days, #60 TAB 2 Refills Prov:RAI MIMS RESIDENT 01/02/24 Reported Medications Memantine Hydrochloride (Memantine HCl) 5 Mg Tab, 1 TAB PO BID 04/25/24 Sildenafil Citrate (Sildenafil Citrate) 20 Mg Tab, 1 TAB PO TID 12/28/23 Diclofenac Sodium (Topical) (Diclofenac Sodium) 1 % Gel, 1 APPLIC TOP TID for 28 Days, #400 12/28/23 Furosemide (Furosemide) 20 Mg Tab, 1 TAB PO DAILY 12/28/23 Metoprolol Tartrate (Lopressor) 25 Mg Tb, 0.5 TAB PO DAILY 12/28/23 Gabapentin (Gabapentin) 300 Mg Cap, 1 CAP PO BID for 30 Days, #60 11/04/23 Apixaban Base (ELIQUIS) 2.5 Mg Tab, 1 TAB PO BID 11/04/23 Potassium Chloride (POTASSIUM CHLORIDE CR) 10 Meq Tb, 1 TAB PO DAILY WITH FOOD, TAB 09/25/23 Losartan Potassium (Losartan Potassium) 50 Mg Tab, 50 MG PO DAILY, MG TAKE 1 TABLET BY MOUTH EVERY DAY. HOLD IF BLOOD PRESSURE IS LESS THAN 110/60 09/25/23 Atorvastatin Calcium (ATORVASTATIN CALCIUM) 40 Mg Tab, 40 MG PO DAILY, TAB 09/25/23 Current Medications Current Medications Medications (Trade) Dose Ordered Sig/Raphael Route PRN Reason Start Time Stop Time Status Last Admin Ceftriaxone Sodium 50 ml @ 100 mls/hr DAILY@0200 IV 04/25/24 02:00 04/25/24 01:10 Vancomycin HCl 100 ml @ 200 mls/hr DAILY@1100 IV 04/25/24 11:00 04/25/24 11:15 Apixaban (Eliquis) 2.5 mg BID PO 04/25/24 22:00 04/25/24 21:53 Ferrous Sulfate 325 mg DAILY PO 04/26/24 10:00 Memantine (Namenda Tablet) 5 mg BID PO 04/25/24 22:00 04/25/24 21:53 Sildenafil Citrate (Revatio) 20 mg TID PO 04/25/24 14:00 04/25/24 21:53 Atorvastatin Calcium (Lipitor) 40 mg DAILY PO 04/26/24 10:00 Enteral Nutritional Formula (NutriHep RTU 240 mL Unflavored) 240 ml TIDWM PO 04/25/24 18:00 Pantoprazole Sodium (Protonix) 40 mg DAILY IV 04/26/24 10:00 Ipratropium [place] (Atrovent Medneb) 0.5 mg Q6HPRN PRN NEB SHORTNESS OF BREATH 04/25/24 13:15 Albuterol (Ventolin Medneb) 2.5 mg Q6HPRN PRN NEB SHORTNESS OF BREATH 04/25/24 13:15 Vital Signs Vital Signs Date Time Temp Pulse Resp B/P (MAP) Pulse Ox O2 Delivery O2 Flow Rate FiO2 04/25/24 16:17 97.5 78 20 130/49 100 1.0 24 97.5 04/25/24 14:23 Nasal Cannula* Physical Exam Gen.: Patient lying in bed in no apparent distress. On supplemental oxygen. Head: Normocephalic, atraumatic. Eyes: EOMI/PERRLA. Ears: Normal hearing. Normal anatomy. Neck/trachea: Trachea midline, supple. Nose: Normal external anatomy. Mouth: Moist mucous membranes. Chest: Decreased air entry bilaterally. No wheezing or rhonchi. Cardiovascular: Positive S1, positive S2. Regular rate and rhythm. Abdomen: Positive bowel sounds in all 4 quadrants. Soft, non-tender, non- distended. : Deferred. Rectal: Deferred. Skin: Warm, dry. Intact. Extremities: 2+ radial pulses bilaterally. No lower extremity edema. Neuro: Awake, alert, oriented x3. No gross motor or sensory deficits. Cranial nerves II through XII intact. Gait not assessed. Labs/Diagnostic Data Labs Test 04/25/24 21:00 04/24/24 01:38 04/23/24 20:15 04/23/24 18:00 Range/Units Sodium Level 132 #L 136-145 mmol/L Potassium Level 5.0 3.5-5.1 mmol/L Chloride Level 105 98-107 mmol/L Carbon Dioxide Level 20 20-31 mmol/L Anion Gap 7 5-15 Blood Urea Nitrogen 33 H 9-23 mg/dL Creatinine 1.16 #H 0.550-1.02 mg/dL Glomerular Filtration Rate Calc 48 >90 mL/min BUN/Creatinine Ratio 28.4 H 10.0-20.0 Serum Glucose 134 H 74-106 mg/dL Calcium Level 8.4 L 8.7-10.4 mg/dL White Blood Count 7.5 4.4-10.8 10^3/uL Red Blood Count 2.36 L 4.0-5.20 10^6/uL Hemoglobin 7.7 L 12.2-16.2 g/dL Hematocrit 24.3 L 36.0-46.0 % Mean Corpuscular Volume 102.9 H 80.0-100.0 fL Mean Corpuscular Hemoglobin 32.8 H 28.0-32.0 pg Mean Corpuscular Hemoglobin Concent 31.9 L 32.0-36.0 g/dL Red Cell Distribution Width 18.6 H 11.8-14.3 % Platelet Count 248 140-450 10^3/uL Mean Platelet Volume 7.3 6.9-10.8 fL Neutrophils (%) (Auto) 79.1 37.0-80.0 % Lymphocytes (%) (Auto) 15.9 10.0-50.0 % Monocytes (%) (Auto) 4.1 0.0-12.0 % Eosinophils (%) (Auto) 0.5 0.0-7.0 % Basophils (%) (Auto) 0.4 0.0-2.0 % Neutrophils # (Auto) 5.9 1.6-8.6 10 ^3/uL Lymphocytes # (Auto) 1.2 0.4-5.4 10 ^3/uL Monocytes # (Auto) 0.3 0-1.3 10 ^3/uL Eosinophils # (Auto) 0 0-0.8 10 ^3/uL Basophils # (Auto) 0 0-0.2 10 ^3/uL Nucleated Red Blood Cells 0.0 % Prothrombin Time 12.0 H 9.3-11.8 sec Prothrombin Time INR 1.15 0.9-1.15 Lactic Acid Level 1.0 0.4-2.0 mmol/L Magnesium Level 2.2 1.6-2.6 mg/dL Iron Level 28 L 50-170 ug/dL Total Iron Binding Capacity 172 L 250-425 ug/dL Percent Iron Saturation 16.3 15-50 % Ferritin 327.3 H 10-291 ng/mL Total Bilirubin 0.6 0.2-1.0 mg/dL Aspartate Amino Transferase (AST) 17 13-40 U/L Alanine Aminotransferase (ALT) < 9 7-40 U/L Alkaline Phosphatase 105 46-116 U/L Ammonia < 10 L 11-32 umol/L Total Protein 7.1 5.7-8.2 g/dL Albumin 2.8 L 3.2-4.8 g/dL Vitamin B12 Level 1447 H 211-911 pg/mL Vitamin D 25-Hydroxy 62.0 30.0-100 ng/mL Folic Acid 7.56 >5.38 ng/mL Thyroid Stimulating Hormone (TSH) 4.23 0.55-4.78 uIU/mL Urine Color Light-yellow Yellow Urine Clarity Clear Clear Urine pH 6.5 5.0-9.0 Urine Specific [place] 1.012 1.001-1.035 Urine Protein Negative Negative Urine Ketones Negative Negative Urine Blood Trace H Negative /uL Urine Nitrite Negative Negative Urine Bilirubin Negative Negative Urine Urobilinogen Normal Negative mg/dL Urine Leukocyte Esterase Negative Negative /uL Urine RBC 9 0 - 4 /hpf Urine Microscopic WBC 1 0-5 /HPF Urine Squamous Epithelial Cells None seen <5 /hpf Urine Bacteria None seen None Seen /hpf Urine Glucose Normal Normal mg/dL Lipase 25 12-53 U/L Microbiology Date/Time Source Procedure Growth Status 04/24/24 06:00 Nose MRSA Screen - Final Complete 04/23/24 18:00 Blood Blood Culture - Preliminary NO GROWTH AFTER 48 HOURS OF INCUBATION. Resulted Assessment Impression: Acute hypoxic respiratory failure Dependence on supplemental oxygen Pulmonary hypertension Pneumonia, likely gram negative Atelectasis Hx of nicotine dependence Plan: Supplemental oxygen 2 LPM NC Titrate to keep O2 sats above 92%. Taper O2 as tolerated. Antibiotics Incentive spirometry Wound care S/p wound debridement Monitor renal function. Monitor electrolytes. Supplement as necessary. Monitor ins and outs. DVT prophylaxis. Prognosis: Poor given patient's multiple co-morbidities. Rest of plan per hospitalist and other consultants. Thank you, CHELO Marcos, for allowing me to participate in this patient's care. Further recommendations will depend on the patient's clinical course. Please do not hesitate to contact me if you have any questions or concerns. This medical document was created using an electronic medical record system with [employer] dictation system. Although these documentations are being carefully reviewed, there may still be some phonetic and typographical changes. The errors are purely typographical, due to imperfection on the software program, and do not reflect any compromise in the patient's medical care. Plan discussed with: Patient, Other (RN/CHELO Marcos/) BIJU TALLEY MD Apr 25, 2024 22:51
[2024-04-26] VITALS (10 sets, daily range): BP systolic 87–111; BP diastolic 30–49; PULSE 62–87; RESP 16–20; TEMP 97.6–97.9; O2SAT 90–100
[2024-04-26] MEDS: SODIUM CHLORIDE 0.9% 500 ML IV ONE (00:50)
--- NOTE | 2024-04-26 06:26 | DVHPN2 ---
Progress Note - Dictate Date Seen: Apr 26, 2024 Medical Necessity Reason Pt with a Central, PICC or Fol: No vital signs Vital Sign Date Time Temp Pulse Resp B/P (MAP) Pulse Ox O2 Delivery O2 Flow Rate FiO2 04/26/24 05:00 97.6 62 19 98/34 (55) 90 97.6 04/25/24 22:20 Nasal Cannula 1.0 04/25/24 22:20 24 Total Intake and Output 04/25/24 04/25/24 04/26/24 15:00 23:00 07:00 Intake Total 115 ml 120 ml 646 ml Output Total 40 ml 175 ml Balance 115 ml 80 ml 471 ml medications Current Medications Medications Dose Ordered Sig/Raphael Route Start Time Stop Time Status Last Admin Dose Admin Vancomycin HCl 0 ml @ 0 mls/hr UD IV 04/24/24 01:15 Ceftriaxone Sodium 50 ml @ 100 mls/hr DAILY@0200 IV 04/25/24 02:00 04/26/24 01:54 100 MLS/HR Morphine Sulfate 1 mg Q4HP PRN IV 04/24/24 01:15 04/25/24 15:03 1 MG Enoxaparin Sodium 40 mg DAILY SC 04/24/24 10:37 Hold 04/25/24 11:15 40 MG Vancomycin HCl 100 ml @ 200 mls/hr DAILY@1100 IV 04/25/24 11:00 04/25/24 11:15 200 MLS/HR Apixaban 2.5 mg BID PO 04/25/24 22:00 04/25/24 21:53 2.5 MG Ferrous Sulfate 325 mg DAILY PO 04/26/24 10:00 Memantine 5 mg BID PO 04/25/24 22:00 04/25/24 21:53 5 MG Sildenafil Citrate 20 mg TID PO 04/25/24 14:00 04/25/24 21:53 20 MG Atorvastatin Calcium 40 mg DAILY PO 04/26/24 10:00 Enteral Nutritional Formula 240 ml TIDWM PO 04/25/24 18:00 Pantoprazole Sodium 40 mg DAILY IV 04/26/24 10:00 Ipratropium [place] 0.5 mg Q6HPRN PRN NEB 04/25/24 13:15 Albuterol 2.5 mg Q6HPRN PRN NEB 04/25/24 13:15 laboratory and microbiology Laboratory Tests 04/25/24 21:00 04/24/24 01:38 Test 04/25/24 21:00 Range/Units Serum Glucose 134 H 74-106 mg/dL [facility] Apr 26, 2024 06:26
--- NOTE | 2024-04-26 07:42 | DVHPN2 ---
Progress Note - Dictate Date Seen: Apr 26, 2024 Medical Necessity Reason Pt with a Central, PICC or Fol: No vital signs Vital Sign Date Time Temp Pulse Resp B/P (MAP) Pulse Ox O2 Delivery O2 Flow Rate FiO2 04/26/24 05:00 97.6 62 19 98/34 (55) 90 97.6 04/25/24 22:20 Nasal Cannula 1.0 04/25/24 22:20 24 Total Intake and Output 04/25/24 04/25/24 04/26/24 15:00 23:00 07:00 Intake Total 115 ml 120 ml 646 ml Output Total 40 ml 175 ml Balance 115 ml 80 ml 471 ml medications Current Medications Medications Dose Ordered Sig/Raphael Route Start Time Stop Time Status Last Admin Dose Admin Vancomycin HCl 0 ml @ 0 mls/hr UD IV 04/24/24 01:15 Ceftriaxone Sodium 50 ml @ 100 mls/hr DAILY@0200 IV 04/25/24 02:00 04/26/24 01:54 100 MLS/HR Morphine Sulfate 1 mg Q4HP PRN IV 04/24/24 01:15 04/25/24 15:03 1 MG Enoxaparin Sodium 40 mg DAILY SC 04/24/24 10:37 Hold 04/25/24 11:15 40 MG Vancomycin HCl 100 ml @ 200 mls/hr DAILY@1100 IV 04/25/24 11:00 04/25/24 11:15 200 MLS/HR Apixaban 2.5 mg BID PO 04/25/24 22:00 04/25/24 21:53 2.5 MG Ferrous Sulfate 325 mg DAILY PO 04/26/24 10:00 Memantine 5 mg BID PO 04/25/24 22:00 04/25/24 21:53 5 MG Sildenafil Citrate 20 mg TID PO 04/25/24 14:00 04/25/24 21:53 20 MG Atorvastatin Calcium 40 mg DAILY PO 04/26/24 10:00 Enteral Nutritional Formula 240 ml TIDWM PO 04/25/24 18:00 Pantoprazole Sodium 40 mg DAILY IV 04/26/24 10:00 Ipratropium [place] 0.5 mg Q6HPRN PRN NEB 04/25/24 13:15 Albuterol 2.5 mg Q6HPRN PRN NEB 04/25/24 13:15 objective General Appearance: alert, no distress HEENT: EOMI, PERRLA, normal external inspect of ears, no icterus, no nasal drainage Neck: no carotid bruit, no jugular venous distention (JVD), no lymphadenopathy Chest: normal thorax Respiratory: Cardiovascular: regular rate and rhythm, no diastolic murmur, no jugular venous distention (JVD), no rub, no systolic murmur Abdominal: soft, no hepatomegaly, no mass, no splenomegaly Genitourinary: grossly normal external Musculoskeletal: no joint tenderness, no swelling Extremities: normal pulses, no calf tenderness, no clubbing, no cyanosis, no edema Skin: no bruising, no jaundice, no rash Neurological: alert, No focal deficit laboratory and microbiology Laboratory Tests 04/25/24 21:00 04/24/24 01:38 Test 04/25/24 21:00 Range/Units Serum Glucose 134 H 74-106 mg/dL Problem List 1. Sepsis IV Abx, monitoring, ID Consult 2. 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 Pneumonia, Left upper lobe, community acquired IV Abx, monitoring 4. Dementia Monitoring 5. Necrotic Sacral Pressure ulcer Stage IV Wound care consult 6. Pulmonary HTN Medication, monitoring 7. Persistent A-fib Medication, monitoring 8. Moderate protein caloric malnutrition Diet education, monitoring Assessment/Plan Subjective: Patient is more awake and alert. Objective: Patient has underline dementia. Patient is complaining of needing to have a bowel movement. Patient is status post wound debridement with packing done by . Plan: Continue pain medication PRN. Continue home medication. BP medication currently on hold due to low blood pressure. Continue abx for stage 4 decubitus ulcer to coccyx. Patient may need palliative and/or hospice referral. Plan discussed with: Patient, Other DALE CALIXTO NP Apr 26, 2024 07:42
[2024-04-26] MEDS: SODIUM CHLORIDE 0.9% 1,000 ML IV SCH (07:45)
[2024-04-26] MEDS: ATORVASTATIN 20 MG TAB PO SCH (09:20)
[2024-04-26] MEDS: FERROUS SULFATE 325mg EC TAB PO SCH (09:20)
[2024-04-26] MEDS: PANTOPRAZOLE 40 MG/10 ML VIAL INJ IV SCH (10:45)
[2024-04-26] MEDS: HYDROcodone-ACET 5/325MG TAB PO PRN (14:22)
--- NOTE | 2024-04-26 15:46 | DVHINCON2 ---
Date of service: Apr 26, 2024 Referring Physician Lilia Marcos NP Reason for Consultation Pulmonary Hypertension / Congestive Heart Failure History of Present Illness This is a 79-year-old female known outside to our practice who initially presented (04/23/2024) with reports of progressive worsening involving pre- existing sacral bedsore. Reports indicate patient has had the sacral wound for approximately 1 month now with progressive worsening prompting further medical evaluation. Patient was subsequently admitted and evaluated by General Surgery who recommended surgical intervention which she underwent surgical debridement of the stage IV sacrococcygeal ulcer (04/24/2024). Patient was subsequently evaluated by Infectious Disease services and initiated on antibiotic therapy secondary to the underlying ulcer and well as superimposed pneumonia. It is of note patient has an underlyin history of known pulmonary hypertension, chronic atrial fibrillation, as well as chronic diastolic heart failure for which Cardiology services have now been involved by primary team request for its evaluation/management. Past Medical History Past medical history includes chronic diastolic heart failure, persistent atrial fibrillation on chronic anticoagulation, valvular heart disease, pulmonary h ypertension, previous cerebral vascular accident, dementia, hypertension, hyperlipidemia, pneumonia, Covid-19, diabetes mellitus II, peripheral neuropathy, urinary tract infections, and chronic anemia, Echocardiogram: (02/14/2024 [facility]) revealed LV EF is 60%, mild LVH. Right Ventricle: Right ventricle is dilated. Fairly normal function. Left Atrium: Left atrium is severely dilated. Right Atrium: Right atrium is severely dilated. Aortic Valve: Mild to Moderate regurgitation. No Mitral Valve: Moderate regurgitation. No MS Tricuspid Valve: Moderate regurgitation. RVSP 97 mmHg. Aorta: Enlarged ascending aorta. Pulmonary artery: There is severe pulmonary hypertension. Pericardium: Trivial pericardial effusion present. No indication of cardiac tamponade. Past Surgical History Reviewed Family History: Patient reports no known family medical history. Allergies: Coded Allergies: NO KNOWN ALLERGIES (Unverified , 02/10/14) Home Meds Active Scripts Ferrous Sulfate (Ferrous Sulfate) 325 Mg Tab, 325 MG PO DAILY for 30 Days, #30 TAB 3 Refills Prov:RAI MIMS RESIDENT 01/02/24 Doxycycline Monohydrate (Doxycycline Monohydrate) 100 Mg Cap, 1 CAP PO BID for 5 Days, #28 CAP Prov:RAI MIMS RESIDENT 01/02/24 Cefpodoxime Proxetil (Cefpodoxime Proxetil) 200 Mg Tab, 1 TAB PO BID for 5 Days, #10 TAB Prov:RAI MIMS RESIDENT 01/02/24 Amlodipine Besylate (NORVASC TABLET) 5 Mg Tb, 10 MG PO DAILY for 30 Days, #60 TAB 2 Refills Prov:RAI MIMS RESIDENT 01/02/24 Reported Medications Memantine Hydrochloride (Memantine HCl) 5 Mg Tab, 1 TAB PO BID 04/25/24 Sildenafil Citrate (Sildenafil Citrate) 20 Mg Tab, 1 TAB PO TID 12/28/23 Diclofenac Sodium (Topical) (Diclofenac Sodium) 1 % Gel, 1 APPLIC TOP TID for 28 Days, #400 12/28/23 Furosemide (Furosemide) 20 Mg Tab, 1 TAB PO DAILY 12/28/23 Metoprolol Tartrate (Lopressor) 25 Mg Tb, 0.5 TAB PO DAILY 12/28/23 Gabapentin (Gabapentin) 300 Mg Cap, 1 CAP PO BID for 30 Days, #60 11/04/23 Apixaban Base (ELIQUIS) 2.5 Mg Tab, 1 TAB PO BID 11/04/23 Potassium Chloride (POTASSIUM CHLORIDE CR) 10 Meq Tb, 1 TAB PO DAILY WITH FOOD, TAB 09/25/23 Losartan Potassium (Losartan Potassium) 50 Mg Tab, 50 MG PO DAILY, MG TAKE 1 TABLET BY MOUTH EVERY DAY. HOLD IF BLOOD PRESSURE IS LESS THAN 110/60 09/25/23 Atorvastatin Calcium (ATORVASTATIN CALCIUM) 40 Mg Tab, 40 MG PO DAILY, TAB 09/25/23 Current Medications Current Medications Medications (Trade) Dose Ordered Sig/Raphael Route PRN Reason Start Time Stop Time Status Last Admin Apixaban (Eliquis) 2.5 mg BID PO 04/25/24 22:00 04/26/24 09:20 Ferrous Sulfate 325 mg DAILY PO 04/26/24 10:00 04/26/24 09:20 Memantine (Namenda Tablet) 5 mg BID PO 04/25/24 22:00 04/26/24 13:23 Atorvastatin Calcium (Lipitor) 40 mg DAILY PO 04/26/24 10:00 04/26/24 09:20 Enteral Nutritional Formula (NutriHep RTU 240 mL Unflavored) 240 ml TIDWM PO 04/25/24 18:00 04/26/24 12:00 Pantoprazole Sodium (Protonix) 40 mg DAILY IV 04/26/24 10:00 04/26/24 10:45 Sodium Chloride 1,000 ml @ 30 mls/hr Q24H IV 04/26/24 07:45 Acetaminophen/ Hydrocodone Bitart ([place] 5/325MG Tab) 1 tab Q4HPRN PRN PO MODERATE PAIN (4-6 PAIN SCALE) 04/26/24 14:15 04/26/24 14:22 Review of Systems A 14-point review of systems is negative unless otherwise noted above Vital Signs Vital Signs Date Time Temp Pulse Resp B/P (MAP) Pulse Ox O2 Delivery O2 Flow Rate FiO2 04/26/24 12:37 97.8 87 16 106/40 (62) 92 97.8 04/26/24 10:20 Nasal Cannula* 2 28 Physical Exam Heart: S1 and S2 present Lungs: Scattered rhonchi. Abdomen: Benign. Extremities: Distal pulses palpable, 2+. Minimal peripheral edema present Labs/Diagnostic Data Labs Test 04/25/24 21:00 04/24/24 01:38 04/23/24 20:15 04/23/24 18:00 Range/Units Sodium Level 132 #L 136-145 mmol/L Potassium Level 5.0 3.5-5.1 mmol/L Chloride Level 105 98-107 mmol/L Carbon Dioxide Level 20 20-31 mmol/L Anion Gap 7 5-15 Blood Urea Nitrogen 33 H 9-23 mg/dL Creatinine 1.16 #H 0.550-1.02 mg/dL Glomerular Filtration Rate Calc 48 >90 mL/min BUN/Creatinine Ratio 28.4 H 10.0-20.0 Serum Glucose 134 H 74-106 mg/dL Calcium Level 8.4 L 8.7-10.4 mg/dL White Blood Count 7.5 4.4-10.8 10^3/uL Red Blood Count 2.36 L 4.0-5.20 10^6/uL Hemoglobin 7.7 L 12.2-16.2 g/dL Hematocrit 24.3 L 36.0-46.0 % Mean Corpuscular Volume 102.9 H 80.0-100.0 fL Mean Corpuscular Hemoglobin 32.8 H 28.0-32.0 pg Mean Corpuscular Hemoglobin Concent 31.9 L 32.0-36.0 g/dL Red Cell Distribution Width 18.6 H 11.8-14.3 % Platelet Count 248 140-450 10^3/uL Mean Platelet Volume 7.3 6.9-10.8 fL Neutrophils (%) (Auto) 79.1 37.0-80.0 % Lymphocytes (%) (Auto) 15.9 10.0-50.0 % Monocytes (%) (Auto) 4.1 0.0-12.0 % Eosinophils (%) (Auto) 0.5 0.0-7.0 % Basophils (%) (Auto) 0.4 0.0-2.0 % Neutrophils # (Auto) 5.9 1.6-8.6 10 ^3/uL Lymphocytes # (Auto) 1.2 0.4-5.4 10 ^3/uL Monocytes # (Auto) 0.3 0-1.3 10 ^3/uL Eosinophils # (Auto) 0 0-0.8 10 ^3/uL Basophils # (Auto) 0 0-0.2 10 ^3/uL Nucleated Red Blood Cells 0.0 % Prothrombin Time 12.0 H 9.3-11.8 sec Prothrombin Time INR 1.15 0.9-1.15 Lactic Acid Level 1.0 0.4-2.0 mmol/L Magnesium Level 2.2 1.6-2.6 mg/dL Iron Level 28 L 50-170 ug/dL Total Iron Binding Capacity 172 L 250-425 ug/dL Percent Iron Saturation 16.3 15-50 % Ferritin 327.3 H 10-291 ng/mL Total Bilirubin 0.6 0.2-1.0 mg/dL Aspartate Amino Transferase (AST) 17 13-40 U/L Alanine Aminotransferase (ALT) < 9 7-40 U/L Alkaline Phosphatase 105 46-116 U/L Ammonia < 10 L 11-32 umol/L Total Protein 7.1 5.7-8.2 g/dL Albumin 2.8 L 3.2-4.8 g/dL Vitamin B12 Level 1447 H 211-911 pg/mL Vitamin D 25-Hydroxy 62.0 30.0-100 ng/mL Folic Acid 7.56 >5.38 ng/mL Thyroid Stimulating Hormone (TSH) 4.23 0.55-4.78 uIU/mL Urine Color Light-yellow Yellow Urine Clarity Clear Clear Urine pH 6.5 5.0-9.0 Urine Specific [place] 1.012 1.001-1.035 Urine Protein Negative Negative Urine Ketones Negative Negative Urine Blood Trace H Negative /uL Urine Nitrite Negative Negative Urine Bilirubin Negative Negative Urine Urobilinogen Normal Negative mg/dL Urine Leukocyte Esterase Negative Negative /uL Urine RBC 9 0 - 4 /hpf Urine Microscopic WBC 1 0-5 /HPF Urine Squamous Epithelial Cells None seen <5 /hpf Urine Bacteria None seen None Seen /hpf Urine Glucose Normal Normal mg/dL Lipase 25 12-53 U/L Microbiology Date/Time Source Procedure Growth Status 04/24/24 06:00 Nose MRSA Screen - Final Complete 04/23/24 18:00 Blood Blood Culture - Preliminary NO GROWTH AFTER 48 HOURS OF INCUBATION. Resulted Plan/Recommendation Assessment: This is a 79-year-old female known outside to our practice who initially presented (04/23/2024) with reports of progressive worsening involving pre- existing sacral bedsore. Reports indicate patient has had the sacral wound for approximately 1 month now with progressive worsening prompting further medical evaluation. Patient was subsequently admitted and evaluated by General Surgery who recommended surgical intervention which she underwent surgical debridement of the stage IV sacrococcygeal ulcer (04/24/2024). Patient was subsequently evaluated by Infectious Disease services and initiated on antibiotic therapy secondary to the underlying ulcer and well as superimposed pneumonia. It is of note patient has an underlyin history of known pulmonary hypertension, chronic atrial fibrillation, as well as chronic diastolic heart failure for which Cardiology services have now been involved by primary team request for its evaluation/management. Past medical history includes chronic diastolic heart failure, persistent atrial fibrillation on chronic anticoagulation, valvular heart disease, pulmonary hypertension, previous cerebral vascular accident, dementia, hypertension, hyperlipidemia, pneumonia, Covid-19, diabetes mellitus II, peripheral neuropathy, urinary tract infections, and chronic anemia, Echocardiogram: (02/14/2024 [facility]) revealed LV EF is 60%, mild LVH. Right Ventricle: Right ventricle is dilated. Fairly normal function. Left Atrium: Left atrium is severely dilated. Right Atrium: Right atrium is severely dilated. Aortic Valve: Mild to Moderate regurgitation. No Mitral Valve: Moderate regurgitation. No MS Tricuspid Valve: Moderate regurgitation. RVSP 97 mmHg. Aorta: Enlarged ascending aorta. Pulmonary artery: There is severe pulmonary hypertension. Pericardium: Trivial pericardial effusion present. No indication of cardiac tamponade. Stage IV sacrococcygeal ulcer, status post surgical debridement (04/24/2024) Severe pulmonary hypertension, RVSP of 97mmHg (01/2024) Persistent atrial fibrillation, on chronic anticoagulation Chronic diastolic heart failure, LVEF of 60% (01/2024) Cerebral vascular accident, history of Presence of pneumonia Valvular heart disease Advanced dementia Acute kidney injury Diabetes mellitus II Anemia, chronic Hyperlipidemia Hypertension Cardiac Suggestions for Management: Request for 2D Echocardiogram Proceed with rate control strategy given advanced age Full AC is advised for CVA prophylaxis as concurrent conditions permit On IV antibiotic therapy as per Primary Team/Infectious Disease Follow up renal function/electrolytes and correct abnormalities Proceed with supplemental oxygen therapy as warranted On Sildenafil 20mg three times daily On Ferrous Sulfate 325mg daily Eliquis 2.5mg twice daily Atorvastatin 40mg daily Proceed with close observation for overt signs of fluid overload Proceed with strict intakes, outputs, and daily weights Proceed with close rate and rhythm surveillance Proceed with close hemodynamic surveillance Proceed with optimized blood pressure control Transfuse to sustain HGB level above 7.0 Sustain Magnesium level greater than 2.0 Sustain Potassium level greater than 4.0 Follow up renal function and electrolytes Management of co-morbidities as per Primary Team and Consultants Follow up ID, Surgery, Pulmonology recommendations Management in telemetry Follow up new home sales consultant recommendation Will proceed to follow from a cardiac perspective Further recommendations per clinical progression All available diagnostic labs, EKG's, and images were personally reviewed Patient's status, findings, and plan of care was reviewed and discussed with supervising physician Dr. Jeffers, who is in agreement with current plan of care. Plan of care discussed with and agreed upon by patient / family / primary RN Prognosis: Guarded / Poor Thank you for allowing me to participate in the care of this patient. Further recommendations based on patients clinical course and progression, primary attending, and other consultants. Will continue to follow with primary attending. If you have any questions or concerns, please do not hesitate to contact me. A total of 75 minutes was spent reviewing the patient record, examining the patient, making a diagnostic and therapeutic plan, discussing this plan with medical personnel, following up on diagnostic studies and following the patient for clinical stability excluding any and all procedures. At least 50% of this time was spent in direct, [id number] contact. Plan discussed with: Other (Patient/Primary RN ) ALEKSEY BARNETT Apr 26, 2024 15:46
--- NOTE | 2024-04-26 23:03 | DVHPN2 ---
Progress Note - Dictate Date Seen: Apr 26, 2024 Medical Necessity Reason Pt with a Central, PICC or Fol: No Subjective Patient seen and examined at bedside. Remains on supplemental oxygen Overnight events reviewed. vital signs Vital Sign Date Time Temp Pulse Resp B/P (MAP) Pulse Ox O2 Delivery O2 Flow Rate FiO2 04/26/24 16:32 97.6 67 18 91/30 (50) 94 97.6 04/26/24 10:20 Nasal Cannula* 2 28 Total Intake and Output 04/25/24 04/25/24 04/26/24 15:00 23:00 07:00 Intake Total 115 ml 120 ml 646 ml Output Total 40 ml 175 ml Balance 115 ml 80 ml 471 ml medications Current Medications Medications Dose Ordered Sig/Raphael Route Start Time Stop Time Status Last Admin Dose Admin Vancomycin HCl 0 ml @ 0 mls/hr UD IV 04/24/24 01:15 Ceftriaxone Sodium 50 ml @ 100 mls/hr DAILY@0200 IV 04/25/24 02:00 04/26/24 01:54 100 MLS/HR Morphine Sulfate 1 mg Q4HP PRN IV 04/24/24 01:15 Hold 04/25/24 15:03 1 MG Enoxaparin Sodium 40 mg DAILY SC 04/24/24 10:37 Hold 04/25/24 11:15 40 MG Vancomycin HCl 100 ml @ 200 mls/hr DAILY@1100 IV 04/25/24 11:00 04/26/24 13:54 200 MLS/HR Apixaban 2.5 mg BID PO 04/25/24 22:00 04/26/24 09:20 2.5 MG Ferrous Sulfate 325 mg DAILY PO 04/26/24 10:00 04/26/24 09:20 325 MG Memantine 5 mg BID PO 04/25/24 22:00 04/26/24 21:40 5 MG Sildenafil Citrate 20 mg TID PO 04/25/24 14:00 04/26/24 21:40 20 MG Atorvastatin Calcium 40 mg DAILY PO 04/26/24 10:00 04/26/24 09:20 40 MG Enteral Nutritional Formula 240 ml TIDWM PO 04/25/24 18:00 04/26/24 18:21 240 ML Pantoprazole Sodium 40 mg DAILY IV 04/26/24 10:00 04/26/24 10:45 40 MG Ipratropium [place] 0.5 mg Q6HPRN PRN NEB 04/25/24 13:15 Albuterol 2.5 mg Q6HPRN PRN NEB 04/25/24 13:15 Sodium Chloride 1,000 ml @ 30 mls/hr Q24H IV 04/26/24 07:45 Acetaminophen/ Hydrocodone Bitart 1 tab Q4HPRN PRN PO 04/26/24 14:15 04/26/24 21:40 1 TAB objective Gen.: Patient lying in bed in no apparent distress. On supplemental oxygen. Head: Normocephalic, atraumatic. Eyes: EOMI/PERRLA. Ears: Normal hearing. Normal anatomy. Neck/trachea: Trachea midline, supple. Nose: Normal external anatomy. Mouth: Moist mucous membranes. Chest: Decreased air entry bilaterally. No wheezing or rhonchi. Cardiovascular: Positive S1, positive S2. Regular rate and rhythm. Abdomen: Positive bowel sounds in all 4 quadrants. Soft, non-tender, non- distended. : Deferred. Rectal: Deferred. Skin: Warm, dry. Intact. Extremities: 2+ radial pulses bilaterally. No lower extremity edema. Neuro: Awake, alert, oriented x3. No gross motor or sensory deficits. Cranial nerves II through XII intact. Gait not assessed. laboratory and microbiology Laboratory Tests 04/25/24 21:00 04/24/24 01:38 Test 04/25/24 21:00 Range/Units Serum Glucose 134 H 74-106 mg/dL Assessment/Plan Impression: Acute hypoxic respiratory failure Dependence on supplemental oxygen Pulmonary hypertension Pneumonia, likely gram negative Atelectasis Hx of nicotine dependence Plan: Supplemental oxygen 2 LPM NC Titrate to keep O2 sats above 92%. Taper O2 as tolerated. Patient is AAO x2. Antibiotics Incentive spirometry Pain control Avoid oversedation Wound care S/p wound debridement Monitor renal function. Monitor electrolytes. Supplement as necessary. Monitor ins and outs. Tolerating PO diet. DVT prophylaxis. Prognosis: Guarded given patient's multiple co-morbidities. Rest of plan per hospitalist and other consultants. Thank you, CHEOL Marcos, for allowing me to participate in this patient's care. Further recommendations will depend on the patient's clinical course. Please do not hesitate to contact me if you have any questions or concerns. This medical document was created using an electronic medical record system with Dragon computerized dictation system. Although these documentations are being carefully reviewed, there may still be some phonetic and typographical changes. The errors are purely typographical, due to imperfection on the software program, and do not reflect any compromise in the patient's medical care. Plan discussed with: Patient, Other (BLAKE Peraza) BIJU TALLEY MD Apr 26, 2024 23:03
[2024-04-27] VITALS (18 sets, daily range): BP systolic 98–136; BP diastolic 29–81; PULSE 53–87; RESP 16–19; TEMP 96.1–98.1; O2SAT 90–100
[2024-04-27 02:07] LABS: Alanine Aminotransferase < 9 U/L (7-40); Albumin 2.6 g/dL (3.2-4.8); Alkaline Phosphatase 94 U/L (46-116); Anion Gap 12 (5-15); Aspartate Aminotransferase 15 U/L (13-40); BUN/Creatinine Ratio 30.9 (10.0-20.0); Blood Urea Nitrogen 38 mg/dL (9-23); Calcium 8.6 mg/dL (8.7-10.4); Carbon Dioxide 19 mmol/L (20-31); Chloride 104 mmol/L (98-107); Glucose 104 mg/dL (74-106); Potassium 3.8 mmol/L (3.5-5.1); Sodium 135 mmol/L (136-145); Total Protein 6.2 g/dL (5.7-8.2)
[2024-04-27 02:10] LABS: Bilirubin, Total 0.3 mg/dL (0.2-1.0)
[2024-04-27 02:11] LABS: Basophils # (auto) 0 10 ^3/uL (0-0.2); Basophils % (auto) 0.2 % (0.0-2.0); Eosinophils # (auto) 0 10 ^3/uL (0-0.8); Eosinophils % (auto) 0.2 % (0.0-7.0); Hematocrit 15.1 % (36.0-46.0); Lymphocytes # (auto) 1.8 10 ^3/uL (0.4-5.4); Lymphocytes % (auto) 29.5 % (10.0-50.0); Mean Corpuscular Hemoglobin 33.8 pg (28.0-32.0); Mean Corpuscular Volume 112.4 fL (80.0-100.0); Monocytes # (auto) 0.4 10 ^3/uL (0-1.3); Monocytes % (auto) 6.9 % (0.0-12.0); Neutrophils # (auto) 3.8 10 ^3/uL (1.6-8.6); Neutrophils % (auto) 63.2 % (37.0-80.0); Nucleated Red Blood Cells % 0.1 %; Platelet Count (auto) 223 10^3/uL (140-450); Red Blood Cells 1.35 10^6/uL (4.0-5.20); White Blood Cell 6.1 10^3/uL (4.4-10.8)
[2024-04-27 02:18] LABS: Hemoglobin 4.5 g/dL (12.2-16.2)
--- NOTE | 2024-04-27 07:48 | DVHPN2 ---
Progress Note - Dictate Date Seen: Apr 27, 2024 Medical Necessity Reason Pt with a Central, PICC or Fol: No vital signs Vital Sign Date Time Temp Pulse Resp B/P (MAP) Pulse Ox O2 Delivery O2 Flow Rate FiO2 04/27/24 05:00 96.8 74 18 100/33 (55) 100 96.8 04/26/24 22:50 Nasal Cannula 2.0 04/26/24 22:50 28 Total Intake and Output 04/26/24 04/26/24 04/27/24 15:00 23:00 07:00 Intake Total 400 ml 100 ml Output Total 100 ml 200 ml Balance 300 ml -100 ml medications Current Medications Medications Dose Ordered Sig/Raphael Route Start Time Stop Time Status Last Admin Dose Admin Vancomycin HCl 0 ml @ 0 mls/hr UD IV 04/24/24 01:15 Morphine Sulfate 1 mg Q4HP PRN IV 04/24/24 01:15 Hold 04/25/24 15:03 1 MG Enoxaparin Sodium 40 mg DAILY SC 04/24/24 10:37 Hold 04/25/24 11:15 40 MG Vancomycin HCl 100 ml @ 200 mls/hr DAILY@1100 IV 04/25/24 11:00 04/26/24 13:54 200 MLS/HR Apixaban 2.5 mg BID PO 04/25/24 22:00 04/26/24 09:20 2.5 MG Ferrous Sulfate 325 mg DAILY PO 04/26/24 10:00 04/26/24 09:20 325 MG Memantine 5 mg BID PO 04/25/24 22:00 04/26/24 21:40 5 MG Sildenafil Citrate 20 mg TID PO 04/25/24 14:00 04/27/24 06:42 20 MG Atorvastatin Calcium 40 mg DAILY PO 04/26/24 10:00 04/26/24 09:20 40 MG Enteral Nutritional Formula 240 ml TIDWM PO 04/25/24 18:00 04/26/24 18:21 240 ML Pantoprazole Sodium 40 mg DAILY IV 04/26/24 10:00 04/26/24 10:45 40 MG Ipratropium [place] 0.5 mg Q6HPRN PRN NEB 04/25/24 13:15 Albuterol 2.5 mg Q6HPRN PRN NEB 04/25/24 13:15 Sodium Chloride 1,000 ml @ 30 mls/hr Q24H IV 04/26/24 07:45 Acetaminophen/ Hydrocodone Bitart 1 tab Q4HPRN PRN PO 04/26/24 14:15 04/26/24 21:40 1 TAB Ertapenem 1 gm/ Sodium Chloride 50 ml @ 100 mls/hr DAILY IV 04/27/24 10:00 UNV objective General Appearance: alert, no distress HEENT: EOMI, PERRLA, normal external inspect of ears, no icterus, no nasal drainage Neck: no carotid bruit, no jugular venous distention (JVD), no lymphadenopathy Chest: normal thorax Respiratory: Cardiovascular: regular rate and rhythm, no diastolic murmur, no jugular venous distention (JVD), no rub, no systolic murmur Abdominal: soft, no hepatomegaly, no mass, no splenomegaly Genitourinary: grossly normal external Musculoskeletal: no joint tenderness, no swelling Extremities: normal pulses, no calf tenderness, no clubbing, no cyanosis, no edema Skin: no bruising, no jaundice, no rash Neurological: alert, No focal deficit laboratory and microbiology Laboratory Tests 04/27/24 01:45 Test 04/27/24 01:45 Range/Units Serum Glucose 104 74-106 mg/dL Problem List 1. Sepsis IV Abx, monitoring, ID Consult 2. 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 Pneumonia, Left upper lobe, community acquired IV Abx, monitoring 4. Dementia Monitoring 5. Necrotic Sacral Pressure ulcer Stage IV Wound care consult 6. Pulmonary HTN Medication, monitoring 7. Persistent A-fib Medication, monitoring 8. Moderate protein caloric malnutrition Diet education, monitoring Assessment/Plan Subjective: Patient is awake and alert x1. Objective: Patient has a history of dementia. Patient was admitted for sepsis related to stage four decubitus ulcer to coccyx. Patient is status post debridement. Patient has acute blood loss anemia status post surgical procedure. Eliquis has been stopped. I did update patient's granddaughter, Ericka in regards to plan of care. Plan: Determine goals of care. Continue antibiotics. Patients wound is positive for ESBL. Monitor daily labs. Transfuse to keep hemoglobin above seven. Plan discussed with: Patient, Other DALE CALIXTO NP Apr 27, 2024 07:48
--- NOTE | 2024-04-27 08:59 | DVHSR ---
APPROVED REPORT EXAM: Two-dimensional and M-mode echocardiogram with Doppler and color Doppler. Blood Pressure: 98/34 mmHg INDICATION Pulm HTN CHF RISK FACTORS Height: 4' 6", Weight: 78 DIMENSIONS LVDd4.4 (3.8-5.7cm)LA (2D)4.7 (1.9-4.0cm)Aortic Root3.4 (2.0-3.7cm) LVDs3.0 (2.5-4.0cm)LA (MM) (1.9-4.0cm)Aortic Cusp Exc1.6 (1.5-2.0cm) EF (%) 60.0 (55-70%)Rt. Atrium4.7 (1.9-4.0cm)Asc. Aorta cm IVSd1.0 (0.7-1.1cm)RV (D) (1.8-2.4cm) PWd0.9 (0.7-1.1cm) Mitral Valve MitralMitral Stenosis E wave1.20m/sMV Mean GR.mmHg A wave0.90m/sMV Peak GR.mmHg E/A ratio1.32D MVAcm2 Aortic Valve Aortic ValveAortic Stenosis V11.20m/Rl Mean GR.6mmHg V21.70m/Rl Peak GR.12mmHg LVOT Diameter1.9 (1.8-2.4cm)Doppler AVA2.00cm2 AI P 1/2 [id number] Pulmonic Valve V21.00m/s Tricuspid Valve TR Velocity2.90m/s [id number] Conclusion Left ventricle: Concentric left ventricular hypertrophy was seen. LVEF was 60%. There was no gross wall motion abnormality. Right ventricle was normal size with normal systolic function. Both atria were moderately dilated. Aortic valve: Aortic valve was trileaflet. There was [id number] aortic insufficiency. There was some aortic stenosis. There was moderate mitral regurgitation. There was mild tricuspid regurgi tation. There was trace pulmonary valve insufficiency. There was small pericardial effusion. Pericardium was hyperechoic, in favor of being calcified.
--- NOTE | 2024-04-27 09:55 | DVHPN2 ---
Progress Note - Dictate Date Seen: Apr 27, 2024 Medical Necessity Reason Pt with a Central, PICC or Fol: No vital signs Vital Sign Date Time Temp Pulse Resp B/P (MAP) Pulse Ox O2 Delivery O2 Flow Rate FiO2 04/27/24 08:00 96.7 61 17 124/37 96.7 04/27/24 05:00 100 04/26/24 22:50 Nasal Cannula 2.0 04/26/24 22:50 28 Total Intake and Output 04/26/24 04/26/24 04/27/24 15:00 23:00 07:00 Intake Total 400 ml 100 ml Output Total 100 ml 200 ml Balance 300 ml -100 ml medications Current Medications Medications Dose Ordered Sig/Raphael Route Start Time Stop Time Status Last Admin Dose Admin Vancomycin HCl 0 ml @ 0 mls/hr UD IV 04/24/24 01:15 Morphine Sulfate 1 mg Q4HP PRN IV 04/24/24 01:15 Hold 04/25/24 15:03 1 MG Enoxaparin Sodium 40 mg DAILY SC 04/24/24 10:37 Hold 04/25/24 11:15 40 MG Vancomycin HCl 100 ml @ 200 mls/hr DAILY@1100 IV 04/25/24 11:00 04/26/24 13:54 200 MLS/HR Ferrous Sulfate 325 mg DAILY PO 04/26/24 10:00 04/26/24 09:20 325 MG Memantine 5 mg BID PO 04/25/24 22:00 04/26/24 21:40 5 MG Sildenafil Citrate 20 mg TID PO 04/25/24 14:00 04/27/24 06:42 20 MG Atorvastatin Calcium 40 mg DAILY PO 04/26/24 10:00 04/26/24 09:20 40 MG Enteral Nutritional Formula 240 ml TIDWM PO 04/25/24 18:00 04/26/24 18:21 240 ML Pantoprazole Sodium 40 mg DAILY IV 04/26/24 10:00 04/26/24 10:45 40 MG Ipratropium [place] 0.5 mg Q6HPRN PRN NEB 04/25/24 13:15 Albuterol 2.5 mg Q6HPRN PRN NEB 04/25/24 13:15 Sodium Chloride 1,000 ml @ 30 mls/hr Q24H IV 04/26/24 07:45 Acetaminophen/ Hydrocodone Bitart 1 tab Q4HPRN PRN PO 04/26/24 14:15 04/26/24 21:40 1 TAB Ertapenem 1 gm/ Sodium Chloride 50 ml @ 100 mls/hr DAILY IV 04/27/24 10:00 04/27/24 10:29 Ertapenem 0.5 gm/ Sodium Chloride 50 ml @ 100 mls/hr DAILY IV 04/28/24 10:00 laboratory and microbiology Laboratory Tests 04/27/24 01:45 Test 04/27/24 01:45 Range/Units Serum Glucose 104 74-106 mg/dL Assessment/Plan This is a 79-year-old female known outside to our practice who initially presented (04/23/2024) with reports of progressive worsening involving pre- existing sacral bedsore. Reports indicate patient has had the sacral wound for approximately 1 month now with progressive worsening prompting further medical evaluation. Patient was subsequently admitted and evaluated by General Surgery who recommended surgical intervention which she underwent surgical debridement of the stage IV sacrococcygeal ulcer (04/24/2024). Patient was subsequently evaluated by Infectious Disease services and initiated on antibiotic therapy secondary to the underlying ulcer and well as superimposed pneumonia. It is of note patient has an underlying history of known pulmonary hypertension, chronic atrial fibrillation, as well as chronic diastolic heart failure for which Cardiology services were involved by primary team request for its evaluation/management. Patient does have history of valvular heart disease and at a point, there was some suggestion for invasive evaluation to determine if valvular heart disease is significant. It is of note that the patient herself was not decision maker and the family had decided not to proceed with any kind of surgery. It is also of note the patient is very frail. Not in acute distress. No carotid bruit. Not using accessory muscles of breathing. No goiter. Lungs reveal scattered rhonchi. Cardiac: Irregular, no thrill. Systolic murmur 3/6 in apex is heard. Abdomen is soft. There is no gross mass. Extremities do not reveal edema. 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 She is a frail female. Nuclear stress test of September 14, 2021 (performed in the office) revealed no ischemia/scar and ejection fraction of 70%. Echocardiogram of August 09, 2021 (performed in the office) revealed ejection fraction of 60-65%, mild concentric left ventricular hypertrophy, mild biatrial enlargement, moderate MR, liaqijib-xw-bertny TR and right ventricular systolic pressure of 60 mm Hg. Echocardiogram of February 09, 2023 (performed in [facility]), revealed ejection fraction of 70%, biatrial enlargement, gkuy-fh-tuviacoi AI/MR/TR and right ventricular systolic pressure of 69 mm Hg. Echocardiogram of July 29, 2023 (performed in the office) revealed moderate concentric left ventricular hypertrophy, ejection fraction of 50-55%, diffuse hypokinesis of left ventricle, moderate biatrial enlargement, moderate to severe TR/AI/MR and moderate PI. Right ventricular systolic pressure was 105 mm Hg. Echocardiogram of September 25, 2023 reported ejection fraction of 65%, mild concentric left ventricular hypertrophy, biatrial enlargement, mild AI/PI, mild to moderate MR, moderate tricuspid regurgitation, small to moderate pericardial effusion and right ventricular systolic pressure of 58 mm Hg. Echocardiogram of December 2023 revealed: Technically limited study secondary to poor acoustic windows. Left ventricle: Left ventricle revealed mild concentric left ventricular hypertrophy. LVEF was 65-70%. There was no gross wall motion abnormality. Right ventricle was not well-visualized. Left atrium was dilated. Right atrium was not well visualized. Aortic valve was trileaflet. There was moderate aortic insufficiency. There was no aortic stenosis. Moderate mitral regurgitation was seen. There was no mitral stenosis. Moderate to severe tricuspid regurgitation was seen. Mild pulmonary valve insufficiency was observed. Right ventricular systolic pressure was cyst around 80 mm Hg. There was small pericardial effusion. There was large sized left pleural effusion (with organized sections). Echocardiogram of January 2024 ([facility]) revealed EF of 60%, mild left ventricular hypertrophy, right ventricular dilatation, severely dilated left atrium, severely dilated right atrium, [id number]-uk-zqqlvkei aortic insufficiency, no mitral stenosis, moderate mitral regurgitation, moderate tricuspid regurgitation and right ventricular systolic pressure of 97 mm Hg Hemoglobin: 8.2 - 7.7 - 4.5 TSH: 4.23 Magnesium: 2.[address] scan revealed; Study is significantly limited given noncontrast imaging. Mild mesenteric edema with diffuse anasarca. Constipation with rectal wall thickening. Correlate for stercoral colitis. Right-sided sacral decubitus ulcer. Moderate cardiomegaly with ectasia of the partially visualized ascending aorta measuring up to 4 cm. Multiple hepatic cysts with 1 cm hepatic dome hypodense lesion which does not measure simple fluid. The gallbladder, pancreas, gastrointestinal tract, uterus, adrenal glands and lymph nodes are not well evaluated. CT of the head revealed: IMPRESSION: 1. No evidence of acute intracranial abnormality. 2. Paranasal sinus disease. Chest x-ray reported: IMPRESSION: Hazy left upper lung zone opacity which may represent atelectasis, pneumonia or asymmetric edema. EKG reveals atrial fibrillation with moderate ventricular response Echocardiogram reported: Left ventricle: Concentric left ventricular hypertrophy was seen. LVEF was 60%. There was no gross wall motion abnormality. Right ventricle was normal size with normal systolic function. Both atria were moderately dilated. Aortic valve: Aortic valve was trileaflet. There was ywey-fj-yvwogqel aortic insufficiency. There was some aortic stenosis. There was moderate mitral regurgitation. There was mild tricuspid regurgitation. There was trace pulmonary valve insufficiency. There was small pericardial effusion. Pericardium was hyperechoic, in favor of being calcified. Review of the images revealed, right ventricle systolic pressure of 45 mm Hg. Assessment: Patient is a frail 79-year-old female who presented with sacral decubitus ulcer. Does have history of valvular heart disease/pulmonary hypertension/diastolic heart failure. Has been kept on full anticoagulation for history of atrial fibrillation. Sacral decubitus ulcer, status post surgery Pulmonary hypertension Persistent atrial fibrillation Valvular heart disease Diastolic heart failure Old CVA Dementia Noncompliance Frail Anemia, significant Cardiac suggestion for management: Manage on telemetry IV diuresis Follow-up electrolytes and kidney function tests and correct abnormalities Keep potassium above 4 and magnesium above 2 Consider PRBC transfusion Long-term continuation of anticoagulation is advised (you can hold it for now: as the patient has significant drop in hemoglobin) Surgery/ID follow-up for decubitus ulcer management Further evaluation and management depends on the above and clinical course A total of 55 minutes was spent reviewing the patient record, examining the patient, making a diagnostic and therapeutic plan, discussing this plan with medical personnel, following up on diagnostic studies and following the patient for clinical stability excluding any and all procedures. At least 50% of this time was spent in direct, [id number] contact. Thank you for allowing me to participate in this patient's care. Further recommendations will depend on patient's clinical course. Please do not hesitate to contact me if you have any questions or concerns. This medical document was created using electronic medical record system with [employer] computerized dictation system. Although this document has been carefully reviewed, there may still be some phonetic and typographical errors. These areas are purely typographical due to the imperfection of the software programs, and do not reflect any compromise in the patient's medical care. Plan discussed with: Patient, Other (nurse) HELENE CARLOS MD Apr 27, 2024 09:55
[2024-04-27] MEDS: ERTAPENEM SOD INJ 1 GM in SODIUM CHL 0.9% 50 ML IV SCH (09:56)
[2024-04-27] MEDS: FUROSEMIDE 20 MG/2 ML VIAL IV ONE (19:13)
[2024-04-27 22:21] LABS: Basophils # (auto) 0 10 ^3/uL (0-0.2); Basophils % (auto) 0.3 % (0.0-2.0); Eosinophils # (auto) 0 10 ^3/uL (0-0.8); Eosinophils % (auto) 0.4 % (0.0-7.0); Hematocrit 27.2 % (36.0-46.0); Hemoglobin 9.5 g/dL (12.2-16.2); Lymphocytes # (auto) 1.1 10 ^3/uL (0.4-5.4); Lymphocytes % (auto) 18.3 % (10.0-50.0); Mean Corpuscular Volume 105.9 fL (80.0-100.0); Monocytes # (auto) 0.4 10 ^3/uL (0-1.3); Monocytes % (auto) 6.7 % (0.0-12.0); Neutrophils # (auto) 4.6 10 ^3/uL (1.6-8.6); Neutrophils % (auto) 74.3 % (37.0-80.0); Nucleated Red Blood Cells % 0.1 %; Platelet Count (auto) 156 10^3/uL (140-450); Red Blood Cells 2.57 10^6/uL (4.0-5.20); White Blood Cell 6.2 10^3/uL (4.4-10.8)
[2024-04-27 22:23] LABS: Red Cell Distribution Width 22.3 % (11.8-14.3)
--- NOTE | 2024-04-27 23:17 | DVHPN2 ---
Progress Note - Dictate Date Seen: Apr 27, 2024 Medical Necessity Reason Pt with a Central, PICC or Fol: No Subjective Patient seen and examined at bedside. Remains on supplemental oxygen Overnight events reviewed. vital signs Vital Sign Date Time Temp Pulse Resp B/P (MAP) Pulse Ox O2 Delivery O2 Flow Rate FiO2 04/27/24 22:24 97.4 97.4 04/27/24 21:00 57 16 133/53 (79) 95 04/27/24 20:00 Nasal Cannula* 2 28 Total Intake and Output 04/26/24 04/26/24 04/27/24 15:00 23:00 07:00 Intake Total 400 ml 100 ml Output Total 100 ml 200 ml Balance 300 ml -100 ml medications Current Medications Medications Dose Ordered Sig/Raphael Route Start Time Stop Time Status Last Admin Dose Admin Vancomycin HCl 0 ml @ 0 mls/hr UD IV 04/24/24 01:15 Morphine Sulfate 1 mg Q4HP PRN IV 04/24/24 01:15 Hold 04/25/24 15:03 1 MG Enoxaparin Sodium 40 mg DAILY SC 04/24/24 10:37 Hold 04/25/24 11:15 40 MG Vancomycin HCl 100 ml @ 200 mls/hr DAILY@1100 IV 04/25/24 11:00 04/26/24 13:54 200 MLS/HR Ferrous Sulfate 325 mg DAILY PO 04/26/24 10:00 04/27/24 10:11 325 MG Memantine 5 mg BID PO 04/25/24 22:00 04/27/24 21:18 5 MG Sildenafil Citrate 20 mg TID PO 04/25/24 14:00 04/27/24 21:18 20 MG Atorvastatin Calcium 40 mg DAILY PO 04/26/24 10:00 04/27/24 10:11 40 MG Enteral Nutritional Formula 240 ml TIDWM PO 04/25/24 18:00 04/27/24 12:00 240 ML Pantoprazole Sodium 40 mg DAILY IV 04/26/24 10:00 04/27/24 10:15 40 MG Ipratropium [place] 0.5 mg Q6HPRN PRN NEB 04/25/24 13:15 Albuterol 2.5 mg Q6HPRN PRN NEB 04/25/24 13:15 Sodium Chloride 1,000 ml @ 30 mls/hr Q24H IV 04/26/24 07:45 Acetaminophen/ Hydrocodone Bitart 1 tab Q4HPRN PRN PO 04/26/24 14:15 04/27/24 21:19 1 TAB Ertapenem 0.5 gm/ Sodium Chloride 50 ml @ 100 mls/hr DAILY IV 04/28/24 10:00 objective Gen.: Patient lying in bed in no apparent distress. On supplemental oxygen. Head: Normocephalic, atraumatic. Eyes: EOMI/PERRLA. Ears: Normal hearing. Normal anatomy. Neck/trachea: Trachea midline, supple. Nose: Normal external anatomy. Mouth: Moist mucous membranes. Chest: Decreased air entry bilaterally. No wheezing or rhonchi. Cardiovascular: Positive S1, positive S2. Regular rate and rhythm. Abdomen: Positive bowel sounds in all 4 quadrants. Soft, non-tender, non- distended. : Deferred. Rectal: Deferred. Skin: Warm, dry. Intact. Extremities: 2+ radial pulses bilaterally. No lower extremity edema. Neuro: Awake, alert, oriented x3. No gross motor or sensory deficits. Cranial nerves II through XII intact. Gait not assessed. laboratory and microbiology Laboratory Tests 04/27/24 21:29 04/27/24 01:45 Test 04/27/24 01:45 Range/Units Serum Glucose 104 74-106 mg/dL Assessment/Plan Impression: Acute hypoxic respiratory failure Dependence on supplemental oxygen Pulmonary hypertension Pneumonia, likely gram negative Atelectasis Hx of nicotine dependence Events: Remains on supplemental oxygen, 2 LPM NC Taper O2 as tolerated Continue antibiotics Incentive spirometry Pain control Avoid oversedation Iron supplementation Monitor hemoglobin Diurese as tolerated w/ Lasix Monitor renal function. Monitor electrolytes. Supplement as necessary. Maintain euvolemia Cardiology recs appreciated Labs and imaging reviewed. Rest of plan as noted below. Plan: Supplemental oxygen 2 LPM NC Titrate to keep O2 sats above 92%. Taper O2 as tolerated. Patient is AAO x2. Antibiotics Incentive spirometry Pain control Avoid oversedation Wound care S/p wound debridement Monitor renal function. Monitor electrolytes. Supplement as necessary. Monitor ins and outs. Tolerating PO diet. DVT prophylaxis. Prognosis: Guarded given patient's multiple co-morbidities. Rest of plan per hospitalist and other consultants. Thank you, CHELO Marcos, for allowing me to participate in this patient's care. Further recommendations will depend on the patient's clinical course. Please do not hesitate to contact me if you have any questions or concerns. This medical document was created using an electronic medical record system with [employer] computerized dictation system. Although these documentations are being carefully reviewed, there may still be some phonetic and typographical changes. The errors are purely typographical, due to imperfection on the software program, and do not reflect any compromise in the patient's medical care. Plan discussed with: Patient, Other (RN Sera) BIJU TALLEY MD Apr 27, 2024 23:17
[2024-04-28] VITALS (9 sets, daily range): BP systolic 116–133; BP diastolic 54–64; PULSE 50–87; RESP 16–19; TEMP 97.4–97.8; O2SAT 95–100
--- NOTE | 2024-04-28 08:15 | DVHPN2 ---
Progress Note - Dictate Date Seen: Apr 28, 2024 Medical Necessity Reason Pt with a Central, PICC or Fol: No vital signs Vital Sign Date Time Temp Pulse Resp B/P (MAP) Pulse Ox O2 Delivery O2 Flow Rate FiO2 04/28/24 05:00 97.4 75 19 131/64 (86) 100 97.4 04/27/24 20:00 Nasal Cannula* 2 28 Total Intake and Output 04/27/24 04/27/24 04/28/24 15:00 23:00 07:00 Intake Total 520 ml 720 ml 330 ml Output Total 350 ml 800 ml Balance 520 ml 370 ml -470 ml medications Current Medications Medications Dose Ordered Sig/Raphael Route Start Time Stop Time Status Last Admin Dose Admin Vancomycin HCl 0 ml @ 0 mls/hr UD IV 04/24/24 01:15 Morphine Sulfate 1 mg Q4HP PRN IV 04/24/24 01:15 Hold 04/25/24 15:03 1 MG Enoxaparin Sodium 40 mg DAILY SC 04/24/24 10:37 Hold 04/25/24 11:15 40 MG Vancomycin HCl 100 ml @ 200 mls/hr DAILY@1100 IV 04/25/24 11:00 04/26/24 13:54 200 MLS/HR Ferrous Sulfate 325 mg DAILY PO 04/26/24 10:00 04/27/24 10:11 325 MG Memantine 5 mg BID PO 04/25/24 22:00 04/27/24 21:18 5 MG Sildenafil Citrate 20 mg TID PO 04/25/24 14:00 04/28/24 05:31 20 MG Atorvastatin Calcium 40 mg DAILY PO 04/26/24 10:00 04/27/24 10:11 40 MG Enteral Nutritional Formula 240 ml TIDWM PO 04/25/24 18:00 04/27/24 12:00 240 ML Pantoprazole Sodium 40 mg DAILY IV 04/26/24 10:00 04/27/24 10:15 40 MG Ipratropium [place] 0.5 mg Q6HPRN PRN NEB 04/25/24 13:15 Albuterol 2.5 mg Q6HPRN PRN NEB 04/25/24 13:15 Sodium Chloride 1,000 ml @ 30 mls/hr Q24H IV 04/26/24 07:45 Acetaminophen/ Hydrocodone Bitart 1 tab Q4HPRN PRN PO 04/26/24 14:15 04/27/24 21:19 1 TAB Ertapenem 0.5 gm/ Sodium Chloride 50 ml @ 100 mls/hr DAILY IV 04/28/24 10:00 laboratory and microbiology Laboratory Tests 04/27/24 21:29 04/27/24 01:45 Test 04/27/24 01:45 Range/Units Serum Glucose 104 74-106 mg/dL Assessment/Plan This is a 79-year-old female known outside to our practice who initially presented (04/23/2024) with reports of progressive worsening involving pre- existing sacral bedsore. Reports indicate patient has had the sacral wound for approximately 1 month now with progressive worsening prompting further medical evaluation. Patient was subsequently admitted and evaluated by General Surgery who recommended surgical intervention which she underwent surgical debridement of the stage IV sacrococcygeal ulcer (04/24/2024). Patient was subsequently evaluated by Infectious Disease services and initiated on antibiotic therapy secondary to the underlying ulcer and well as superimposed pneumonia. It is of note patient has an underlying history of known pulmonary hypertension, chronic atrial fibrillation, as well as chronic diastolic heart failure for which Cardiology services were involved by primary team request for its evaluation/management. Patient does have history of valvular heart disease and at a point, there was some suggestion for invasive evaluation to determine if valvular heart disease is significant. It is of note that the patient herself was not decision maker and the family had decided not to proceed with any kind of surgery. It is also of note the patient is very frail. Not in acute distress. No carotid bruit. Not using accessory muscles of breathing. No goiter. Lungs reveal scattered rhonchi. Cardiac: Irregular, no thrill. Systolic murmur 3/6 in apex is heard. Abdomen is soft. There is no gross mass. Extremities do not reveal edema. 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 She is a frail female. Nuclear stress test of September 14, 2021 (performed in the office) revealed no ischemia/scar and ejection fraction of 70%. Echocardiogram of August 09, 2021 (performed in the office) revealed ejection fraction of 60-65%, mild concentric left ventricular hypertrophy, mild biatrial enlargement, moderate MR, [id number] TR and right ventricular systolic pressure of 60 mm Hg. Echocardiogram of February 09, 2023 (performed in [facility]), revealed ejection fraction of 70%, biatrial enlargement, [id number]-[id number] AI/MR/TR and right ventricular systolic pressure of 69 mm Hg. Echocardiogram of July 29, 2023 (performed in the office) revealed moderate concentric left ventricular hypertrophy, ejection fraction of 50-55%, diffuse hypokinesis of left ventricle, moderate biatrial enlargement, moderate to severe TR/AI/MR and moderate PI. Right ventricular systolic pressure was 105 mm Hg. Echocardiogram of September 25, 2023 reported ejection fraction of 65%, mild concentric left ventricular hypertrophy, biatrial enlargement, mild AI/PI, mild to moderate MR, moderate tricuspid regurgitation, small to moderate pericardial effusion and right ventricular systolic pressure of 58 mm Hg. Echocardiogram of December 2023 revealed: Technically limited study secondary to poor acoustic windows. Left ventricle: Left ventricle revealed mild concentric left ventricular hypertrophy. LVEF was 65-70%. There was no gross wall motion abnormality. Right ventricle was not well-visualized. Left atrium was dilated. Right atrium was not well visualized. Aortic valve was trileaflet. There was moderate aortic insufficiency. There was no aortic stenosis. Moderate mitral regurgitation was seen. There was no mitral stenosis. Moderate to severe tricuspid regurgitation was seen. Mild pulmonary valve insufficiency was observed. Right ventricular systolic pressure was cyst around 80 mm Hg. There was small pericardial effusion. There was large sized left pleural effusion (with organized sections). Echocardiogram of January 2024 ([facility]) revealed EF of 60%, mild left ventricular hypertrophy, right ventricular dilatation, severely dilated left atrium, severely dilated right atrium, [id number]-do-ytrvrzpt aortic insufficiency, no mitral stenosis, moderate mitral regurgitation, moderate tricuspid regurgitation and right ventricular systolic pressure of 97 mm Hg Hemoglobin: 8.2 - 7.7 - 4.5 - 9.5 TSH: 4.23 Magnesium: 2.[address] scan revealed; Study is significantly limited given noncontrast imaging. Mild mesenteric edema with diffuse anasarca. Constipation with rectal wall thickening. Correlate for stercoral colitis. Right-sided sacral decubitus ulcer. Moderate cardiomegaly with ectasia of the partially visualized ascending aorta measuring up to 4 cm. Multiple hepatic cysts with 1 cm hepatic dome hypodense lesion which does not measure simple fluid. The gallbladder, pancreas, gastrointestinal tract, uterus, adrenal glands and lymph nodes are not well evaluated. CT of the head revealed: IMPRESSION: 1. No evidence of acute intracranial abnormality. 2. Paranasal sinus disease. Chest x-ray reported: IMPRESSION: Hazy left upper lung zone opacity which may represent atelectasis, pneumonia or asymmetric edema. EKG reveals atrial fibrillation with moderate ventricular response Echocardiogram reported: Left ventricle: Concentric left ventricular hypertrophy was seen. LVEF was 60%. There was no gross wall motion abnormality. Right ventricle was normal size with normal systolic function. Both atria were moderately dilated. Aortic valve: Aortic valve was trileaflet. There was [id number]-ih-yylvzygi aortic insufficiency. There was some aortic stenosis. There was moderate mitral regurgitation. There was mild tricuspid regurgitation. There was trace pulmonary valve insufficiency. There was small pericardial effusion. Pericardium was hyperechoic, in favor of being calcified. Review of the images revealed, right ventricle systolic pressure of 45 mm Hg. Assessment: Patient is a frail 79-year-old female who presented with sacral decubitus ulcer. Does have history of valvular heart disease/pulmonary hypertension/diastolic heart failure. Has been kept on full anticoagulation for history of atrial fibrillation. Sacral decubitus ulcer, status post surgery Pulmonary hypertension Persistent atrial fibrillation Valvular heart disease Diastolic heart failure Old CVA Dementia Noncompliance Frail Anemia, significant Cardiac suggestion for management: Manage on telemetry IV diuresis Follow-up electrolytes and kidney function tests and correct abnormalities Keep potassium above 4 and magnesium above 2 Long-term continuation of anticoagulation is advised (consider restarting after stabilization and before discharge) Surgery/ID follow-up for decubitus ulcer management Further evaluation and management depends on the above and clinical course A total of 55 minutes was spent reviewing the patient record, examining the patient, making a diagnostic and therapeutic plan, discussing this plan with medical personnel, following up on diagnostic studies and following the patient for clinical stability excluding any and all procedures. At least 50% of this time was spent in direct, [id number] contact. Thank you for allowing me to participate in this patient's care. Further recommendations will depend on patient's clinical course. Please do not hesitate to contact me if you have any questions or concerns. This medical document was created using electronic medical record system with [employer] computerized dictation system. Although this document has been carefully reviewed, there may still be some phonetic and typographical errors. These areas are purely typographical due to the imperfection of the software programs, and do not reflect any compromise in the patient's medical care. Plan discussed with: Other (nurse) HELENE CARLOS MD Apr 28, 2024 08:15
--- NOTE | 2024-04-28 08:53 | DVHPN2 ---
Progress Note - Dictate Date Seen: Apr 28, 2024 Medical Necessity Reason Pt with a Central, PICC or Fol: No vital signs Vital Sign Date Time Temp Pulse Resp B/P (MAP) Pulse Ox O2 Delivery O2 Flow Rate FiO2 04/28/24 05:00 97.4 75 19 131/64 (86) 100 97.4 04/27/24 20:00 Nasal Cannula* 2 28 Total Intake and Output 04/27/24 04/27/24 04/28/24 15:00 23:00 07:00 Intake Total 520 ml 720 ml 330 ml Output Total 350 ml 800 ml Balance 520 ml 370 ml -470 ml medications Current Medications Medications Dose Ordered Sig/Raphael Route Start Time Stop Time Status Last Admin Dose Admin Vancomycin HCl 0 ml @ 0 mls/hr UD IV 04/24/24 01:15 Morphine Sulfate 1 mg Q4HP PRN IV 04/24/24 01:15 Hold 04/25/24 15:03 1 MG Enoxaparin Sodium 40 mg DAILY SC 04/24/24 10:37 Hold 04/25/24 11:15 40 MG Vancomycin HCl 100 ml @ 200 mls/hr DAILY@1100 IV 04/25/24 11:00 04/26/24 13:54 200 MLS/HR Ferrous Sulfate 325 mg DAILY PO 04/26/24 10:00 04/27/24 10:11 325 MG Memantine 5 mg BID PO 04/25/24 22:00 04/27/24 21:18 5 MG Sildenafil Citrate 20 mg TID PO 04/25/24 14:00 04/28/24 05:31 20 MG Atorvastatin Calcium 40 mg DAILY PO 04/26/24 10:00 04/27/24 10:11 40 MG Enteral Nutritional Formula 240 ml TIDWM PO 04/25/24 18:00 04/27/24 12:00 240 ML Pantoprazole Sodium 40 mg DAILY IV 04/26/24 10:00 04/27/24 10:15 40 MG Ipratropium [place] 0.5 mg Q6HPRN PRN NEB 04/25/24 13:15 Albuterol 2.5 mg Q6HPRN PRN NEB 04/25/24 13:15 Sodium Chloride 1,000 ml @ 30 mls/hr Q24H IV 04/26/24 07:45 Acetaminophen/ Hydrocodone Bitart 1 tab Q4HPRN PRN PO 04/26/24 14:15 04/27/24 21:19 1 TAB Ertapenem 0.5 gm/ Sodium Chloride 50 ml @ 100 mls/hr DAILY IV 04/28/24 10:00 objective General Appearance: alert, no distress HEENT: EOMI, PERRLA, normal external inspect of ears, no icterus, no nasal drainage Neck: no carotid bruit, no jugular venous distention (JVD), no lymphadenopathy Chest: normal thorax Respiratory: Cardiovascular: regular rate and rhythm, no diastolic murmur, no jugular venous distention (JVD), no rub, no systolic murmur Abdominal: soft, no hepatomegaly, no mass, no splenomegaly Genitourinary: grossly normal external Musculoskeletal: no joint tenderness, no swelling Extremities: normal pulses, no calf tenderness, no clubbing, no cyanosis, no edema Skin: no bruising, no jaundice, no rash Neurological: alert, No focal deficit laboratory and microbiology Laboratory Tests 04/27/24 21:29 04/27/24 01:45 Test 04/27/24 01:45 Range/Units Serum Glucose 104 74-106 mg/dL Problem List 1. Sepsis IV Abx, monitoring, ID Consult 2. 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 Pneumonia, Left upper lobe, community acquired IV Abx, monitoring 4. Dementia Monitoring 5. Necrotic Sacral Pressure ulcer Stage IV Wound care consult 6. Pulmonary HTN Medication, monitoring 7. Persistent A-fib Medication, monitoring 8. Moderate protein caloric malnutrition Diet education, monitoring Assessment/Plan Subjective Patient is awake alert x 1. Objective I spoke with patient's son Bob and patient's daughter Ericka at length today in regards to goals of care. Patient is now a DNR and family is awaiting for hospice services at home. Patient was admitted for sepsis and stage IV decubitus ulcer with ESBL. Patient is status post debridement and status post blood transfusion for acute anemia postoperatively. Patient has chronic anticoagulation with Eliquis currently on hold. Plan Continue current treatment. medical services manager consult for hospice. Patient is DNR. Continue antibiotics for now until discharge. Plan discussed with: Patient, Other DALE CALIXTO NP Apr 28, 2024 08:53
[2024-04-28] MEDS: ERTAPENEM SOD INJ 0.5 GM in SODIUM CHL 0.9% 50 ML IV SCH (11:08)
--- NOTE | 2024-04-28 20:34 | DVHPN2 ---
Progress Note - Dictate Date Seen: Apr 28, 2024 Medical Necessity Reason Pt with a Central, PICC or Fol: No Subjective Patient seen and examined at bedside. Remains on supplemental oxygen Overnight events reviewed. vital signs Vital Sign Date Time Temp Pulse Resp B/P (MAP) Pulse Ox O2 Delivery O2 Flow Rate FiO2 04/28/24 17:00 97.8 69 16 119/57 (77) 100 97.8 04/28/24 09:10 Room Air* 0 21 Total Intake and Output 04/27/24 04/27/24 04/28/24 15:00 23:00 07:00 Intake Total 520 ml 720 ml 330 ml Output Total 350 ml 800 ml Balance 520 ml 370 ml -470 ml medications Current Medications Medications Dose Ordered Sig/Raphael Route Start Time Stop Time Status Last Admin Dose Admin Vancomycin HCl 0 ml @ 0 mls/hr UD IV 04/24/24 01:15 Morphine Sulfate 1 mg Q4HP PRN IV 04/24/24 01:15 Hold 04/25/24 15:03 1 MG Enoxaparin Sodium 40 mg DAILY SC 04/24/24 10:37 Hold 04/25/24 11:15 40 MG Ferrous Sulfate 325 mg DAILY PO 04/26/24 10:00 04/28/24 09:59 325 MG Memantine 5 mg BID PO 04/25/24 22:00 04/28/24 09:59 5 MG Sildenafil Citrate 20 mg TID PO 04/25/24 14:00 04/28/24 13:43 20 MG Atorvastatin Calcium 40 mg DAILY PO 04/26/24 10:00 04/28/24 09:59 40 MG Enteral Nutritional Formula 240 ml TIDWM PO 04/25/24 18:00 04/28/24 18:00 240 ML Pantoprazole Sodium 40 mg DAILY IV 04/26/24 10:00 04/28/24 09:59 40 MG Sodium Chloride 1,000 ml @ 30 mls/hr Q24H IV 04/26/24 07:45 04/28/24 09:59 30 MLS/HR Acetaminophen/ Hydrocodone Bitart 1 tab Q4HPRN PRN PO 04/26/24 14:15 04/28/24 11:07 1 TAB Ertapenem 0.5 gm/ Sodium Chloride 50 ml @ 100 mls/hr DAILY IV 04/28/24 10:00 04/28/24 11:08 100 MLS/HR objective Gen.: Patient lying in bed in no apparent distress. On supplemental oxygen. Head: Normocephalic, atraumatic. Eyes: EOMI/PERRLA. Ears: Normal hearing. Normal anatomy. Neck/trachea: Trachea midline, supple. Nose: Normal external anatomy. Mouth: Moist mucous membranes. Chest: Decreased air entry bilaterally. No wheezing or rhonchi. Cardiovascular: Positive S1, positive S2. Regular rate and rhythm. Abdomen: Positive bowel sounds in all 4 quadrants. Soft, non-tender, non- distended. : Deferred. Rectal: Deferred. Skin: Warm, dry. Intact. Extremities: 2+ radial pulses bilaterally. No lower extremity edema. Neuro: Awake, alert, oriented x2. No gross motor or sensory deficits. Cranial nerves II through XII intact. Gait not assessed. laboratory and microbiology Laboratory Tests 04/28/24 18:44 04/27/24 21:29 04/27/24 01:45 Test 04/27/24 01:45 Range/Units Serum Glucose 104 74-106 mg/dL Assessment/Plan Impression: Acute hypoxic respiratory failure Dependence on supplemental oxygen Pulmonary hypertension Pneumonia, likely gram negative Atelectasis Hx of nicotine dependence Events: Remains on supplemental oxygen, 2 LPM NC Taper O2 as tolerated Continue antibiotics Incentive spirometry Wound care Pain control Avoid oversedation Iron supplementation Monitor hemoglobin Labs and imaging reviewed. Rest of plan as noted below. Plan: Supplemental oxygen Titrate to keep O2 sats above 92%. Antibiotics Incentive spirometry Pain control Avoid oversedation Wound care S/p wound debridement Monitor renal function. Monitor electrolytes. Supplement as necessary. Monitor ins and outs. Tolerating PO diet. DVT prophylaxis. Prognosis: Guarded given patient's multiple co-morbidities. Rest of plan per hospitalist and other consultants. Thank you, CHELO Marcos, for allowing me to participate in this patient's care. Further recommendations will depend on the patient's clinical course. Please do not hesitate to contact me if you have any questions or concerns. This medical document was created using an electronic medical record system with [employer] system. Although these documentations are being carefully reviewed, there may still be some phonetic and typographical changes. The errors are purely typographical, due to imperfection on the software program, and do not reflect any compromise in the patient's medical care. Dietary Evaluation Review Comments: 1. unable to supplement Tino for wound healing d/t poor kidney function without dialysis. 2. Encourage PO intake and PO supplements, either Ensure Enlive or Ensure Hi protein BID, prostat (15 g pro 100 kcal per 1 fl oz) can also be introduced as a clear liquid high protein beverage. Expected Outcomes/Goals: improved nutrition status, gradually healed bed ulcer. Plan discussed with: Patient, Other (BLAKE Myers) BIJU TALLEY MD Apr 28, 2024 20:34
[2024-04-29] VITALS (10 sets, daily range): BP systolic 115–132; BP diastolic 44–79; PULSE 61–85; RESP 16–19; TEMP 36.4; O2SAT 92–100
[2024-04-29 05:32] LABS: Basophils # (auto) 0 10 ^3/uL (0-0.2); Eosinophils # (auto) 0 10 ^3/uL (0-0.8); Lymphocytes # (auto) 1.1 10 ^3/uL (0.4-5.4); Monocytes # (auto) 0.4 10 ^3/uL (0-1.3)
[2024-04-29 05:37] LABS: Basophils % (auto) 0.4 % (0.0-2.0); Eosinophils % (auto) 0.3 % (0.0-7.0); Hematocrit 19.8 % (36.0-46.0); Mean Corpuscular Hemoglobin 36.9 pg (28.0-32.0); Mean Corpuscular Hgb Conc. 35.1 g/dL (32.0-36.0); Monocytes % (auto) 5.7 % (0.0-12.0); Neutrophils % (auto) 78.6 % (37.0-80.0); Nucleated Red Blood Cells % 0.1 %; Platelet Count (auto) 149 10^3/uL (140-450); Red Blood Cells 1.88 10^6/uL (4.0-5.20); Red Cell Distribution Width 22.5 % (11.8-14.3); White Blood Cell 7.6 10^3/uL (4.4-10.8)
[2024-04-29 05:40] LABS: Hemoglobin 6.9 g/dL (12.2-16.2)
--- NOTE | 2024-04-29 06:21 | DVHPN2 ---
Progress Note - Dictate Date Seen: Apr 29, 2024 Medical Necessity Reason Pt with a Central, PICC or Fol: No vital signs Vital Sign Date Time Temp Pulse Resp B/P (MAP) Pulse Ox O2 Delivery O2 Flow Rate FiO2 04/29/24 05:00 99.3 80 16 115/79 (91) 98 99.3 04/28/24 20:00 Nasal Cannula* 2 28 Total Intake and Output 04/28/24 04/28/24 04/29/24 15:00 23:00 07:00 Intake Total 50 ml 530 ml 50 ml Output Total 600 ml 200 ml Balance 50 ml -70 ml -150 ml medications Current Medications Medications Dose Ordered Sig/Raphael Route Start Time Stop Time Status Last Admin Dose Admin Vancomycin HCl 0 ml @ 0 mls/hr UD IV 04/24/24 01:15 Morphine Sulfate 1 mg Q4HP PRN IV 04/24/24 01:15 Hold 04/25/24 15:03 1 MG Enoxaparin Sodium 40 mg DAILY SC 04/24/24 10:37 Hold 04/25/24 11:15 40 MG Ferrous Sulfate 325 mg DAILY PO 04/26/24 10:00 04/28/24 09:59 325 MG Memantine 5 mg BID PO 04/25/24 22:00 04/28/24 21:55 5 MG Sildenafil Citrate 20 mg TID PO 04/25/24 14:00 04/29/24 05:55 20 MG Atorvastatin Calcium 40 mg DAILY PO 04/26/24 10:00 04/28/24 09:59 40 MG Enteral Nutritional Formula 240 ml TIDWM PO 04/25/24 18:00 04/28/24 18:00 240 ML Pantoprazole Sodium 40 mg DAILY IV 04/26/24 10:00 04/28/24 09:59 40 MG Sodium Chloride 1,000 ml @ 30 mls/hr Q24H IV 04/26/24 07:45 04/28/24 09:59 30 MLS/HR Acetaminophen/ Hydrocodone Bitart 1 tab Q4HPRN PRN PO 04/26/24 14:15 04/28/24 11:07 1 TAB Ertapenem 0.5 gm/ Sodium Chloride 50 ml @ 100 mls/hr DAILY IV 04/28/24 10:00 04/28/24 11:08 100 MLS/HR laboratory and microbiology Laboratory Tests 04/29/24 05:02 04/27/24 01:45 Test 04/27/24 01:45 Range/Units Serum Glucose 104 74-106 mg/dL Assessment/Plan This is a 79-year-old female known outside to our practice who initially presented (04/23/2024) with reports of progressive worsening involving pre- existing sacral bedsore. Reports indicate patient has had the sacral wound for approximately 1 month now with progressive worsening prompting further medical evaluation. Patient was subsequently admitted and evaluated by General Surgery who recommended surgical intervention which she underwent surgical debridement of the stage IV sacrococcygeal ulcer (04/24/2024). Patient was subsequently evaluated by Infectious Disease services and initiated on antibiotic therapy secondary to the underlying ulcer and well as superimposed pneumonia. It is of note patient has an underlying history of known pulmonary hypertension, chronic atrial fibrillation, as well as chronic diastolic heart failure for which Cardiology services were involved by primary team request for its evaluation/management. Patient does have history of valvular heart disease and at a point, there was some suggestion for invasive evaluation to determine if valvular heart disease is significant. It is of note that the patient herself was not decision maker and the family had decided not to proceed with any kind of surgery. It is also of note the patient is very frail. Not in acute distress. No carotid bruit. Not using accessory muscles of breathing. No goiter. Lungs reveal scattered rhonchi. Cardiac: Irregular, no thrill. Systolic murmur 3/6 in apex is heard. Abdomen is soft. There is no gross mass. Extremities do not reveal edema. 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 She is a frail female. Nuclear stress test of September 14, 2021 (performed in the office) revealed no ischemia/scar and ejection fraction of 70%. Echocardiogram of August 09, 2021 (performed in the office) revealed ejection fraction of 60-65%, mild concentric left ventricular hypertrophy, mild biatrial enlargement, moderate MR, [id number] TR and right ventricular systolic pressure of 60 mm Hg. Echocardiogram of February 09, 2023 (performed in [facility]), revealed ejection fraction of 70%, biatrial enlargement, [id number] AI/MR/TR and right ventricular systolic pressure of 69 mm Hg. Echocardiogram of July 29, 2023 (performed in the office) revealed moderate concentric left ventricular hypertrophy, ejection fraction of 50-55%, diffuse hypokinesis of left ventricle, moderate biatrial enlargement, moderate to severe TR/AI/MR and moderate PI. Right ventricular systolic pressure was 105 mm Hg. Echocardiogram of September 25, 2023 reported ejection fraction of 65%, mild concentric left ventricular hypertrophy, biatrial enlargement, mild AI/PI, mild to moderate MR, moderate tricuspid regurgitation, small to moderate pericardial effusion and right ventricular systolic pressure of 58 mm Hg. Echocardiogram of December 2023 revealed: Technically limited study secondary to poor acoustic windows. Left ventricle: Left ventricle revealed mild concentric left ventricular hypertrophy. LVEF was 65-70%. There was no gross wall motion abnormality. Right ventricle was not well-visualized. Left atrium was dilated. Right atrium was not well visualized. Aortic valve was trileaflet. There was moderate aortic insufficiency. There was no aortic stenosis. Moderate mitral regurgitation was seen. There was no mitral stenosis. Moderate to severe tricuspid regurgitation was seen. Mild pulmonary valve insufficiency was observed. Right ventricular systolic pressure was cyst around 80 mm Hg. There was small pericardial effusion. There was large sized left pleural effusion (with organized sections). Echocardiogram of January 2024 ([facility]) revealed EF of 60%, mild left ventricular hypertrophy, right ventricular dilatation, severely dilated left atrium, severely dilated right atrium, [id number] aortic insufficiency, no mitral stenosis, moderate mitral regurgitation, moderate tricuspid regurgitation and right ventricular systolic pressure of 97 mm Hg Hemoglobin: 8.2 - 7.7 - 4.5 - 9.5 - 7.1 - 6.9 TSH: 4.23 Magnesium: 2.[address] scan revealed; Study is significantly limited given noncontrast imaging. Mild mesenteric edema with diffuse anasarca. Constipation with rectal wall thickening. Correlate for stercoral colitis. Right-sided sacral decubitus ulcer. Moderate cardiomegaly with ectasia of the partially visualized ascending aorta measuring up to 4 cm. Multiple hepatic cysts with 1 cm hepatic dome hypodense lesion which does not measure simple fluid. The gallbladder, pancreas, gastrointestinal tract, uterus, adrenal glands and lymph nodes are not well evaluated. CT of the head revealed: IMPRESSION: 1. No evidence of acute intracranial abnormality. 2. Paranasal sinus disease. Chest x-ray reported: IMPRESSION: Hazy left upper lung zone opacity which may represent atelectasis, pneumonia or asymmetric edema. EKG reveals atrial fibrillation with moderate ventricular response Echocardiogram reported: Left ventricle: Concentric left ventricular hypertrophy was seen. LVEF was 60%. There was no gross wall motion abnormality. Right ventricle was normal size with normal systolic function. Both atria were moderately dilated. Aortic valve: Aortic valve was trileaflet. There was [id number] aortic insufficiency. There was some aortic stenosis. There was moderate mitral regurgitation. There was mild tricuspid regurgitation. There was trace pulmonary valve insufficiency. There was small pericardial effusion. Pericardium was hyperechoic, in favor of being calcified. Review of the images revealed, right ventricle systolic pressure of 45 mm Hg. Assessment: Patient is a frail 79-year-old female who presented with sacral decubitus ulcer. Does have history of valvular heart disease/pulmonary hypertension/diastolic heart failure. Has been kept on full anticoagulation for history of atrial fibrillation. Sacral decubitus ulcer, status post surgery Pulmonary hypertension Persistent atrial fibrillation Valvular heart disease Diastolic heart failure Old CVA Dementia Noncompliance Frail Anemia, significant Cardiac suggestion for management: Manage on telemetry IV diuresis Follow-up electrolytes and kidney function tests and correct abnormalities Keep potassium above 4 and magnesium above 2 Consider PRBC transfusion Long-term continuation of anticoagulation is advised (consider restarting after stabilization and before discharge) Surgery/ID follow-up for decubitus ulcer management Further evaluation and management depends on the above and clinical course A total of 55 minutes was spent reviewing the patient record, examining the patient, making a diagnostic and therapeutic plan, discussing this plan with medical personnel, following up on diagnostic studies and following the patient for clinical stability excluding any and all procedures. At least 50% of this time was spent in direct, [id number] contact. Thank you for allowing me to participate in this patient's care. Further recommendations will depend on patient's clinical course. Please do not hesitate to contact me if you have any questions or concerns. This medical document was created using electronic medical record system with [email or web address] computerized dictation system. Although this document has been carefully reviewed, there may still be some phonetic and typographical errors. These areas are purely typographical due to the imperfection of the software programs, and do not reflect any compromise in the patient's medical care. Dietary Evaluation Review Comments: 1. unable to supplement Tino for wound healing d/t poor kidney function without dialysis. 2. Encourage PO intake and PO supplements, either Ensure Enlive or Ensure Hi protein BID, prostat (15 g pro 100 kcal per 1 fl oz) can also be introduced as a clear liquid high protein beverage. Expected Outcomes/Goals: improved nutrition status, gradually healed bed ulcer. Plan discussed with: Other (nurse) HELENE CARLOS MD Apr 29, 2024 06:21
--- NOTE | 2024-04-29 13:42 | DVHDS2 ---
Discharge Summary Date of Admission Apr 23, 2024 at 23:45 Date of Discharge: Apr 29, 2024 Labs/Diagnostic Data: Laboratory Results Test 04/29/24 05:02 04/27/24 21:29 04/27/24 01:45 04/24/24 01:38 White Blood Count 7.6 10^3/uL (4.4-10.8) Red Blood Count 1.88 10^6/uL (4.0-5.20) Hemoglobin 6.9 g/dL (12.2-16.2) Hematocrit 19.8 % (36.0-46.0) Mean Corpuscular Volume 105.0 fL (80.0-100.0) Mean Corpuscular Hemoglobin 36.9 pg (28.0-32.0) Mean Corpuscular Hemoglobin Concent 35.1 g/dL (32.0-36.0) Red Cell Distribution Width 22.5 % (11.8-14.3) Platelet Count 149 10^3/uL (140-450) Mean Platelet Volume 7.7 fL (6.9-10.8) Neutrophils (%) (Auto) 78.6 % (37.0-80.0) Lymphocytes (%) (Auto) 15.0 % (10.0-50.0) Monocytes (%) (Auto) 5.7 % (0.0-12.0) Eosinophils (%) (Auto) 0.3 % (0.0-7.0) Basophils (%) (Auto) 0.4 % (0.0-2.0) Neutrophils # (Auto) 6.0 10 ^3/uL (1.6-8.6) Lymphocytes # (Auto) 1.1 10 ^3/uL (0.4-5.4) Monocytes # (Auto) 0.4 10 ^3/uL (0-1.3) Eosinophils # (Auto) 0 10 ^3/uL (0-0.8) Basophils # (Auto) 0 10 ^3/uL (0-0.2) Nucleated Red Blood Cells 0.1 % Creatinine 0.89 mg/dL (0.550-1.02) Glomerular Filtration Rate Calc 66 mL/min (>90) Random Vancomycin Level 16.6 ug/mL (5-10) Vancomycin Level Trough 20.4 ug/mL (5-10) Sodium Level 135 mmol/L (136-145) Potassium Level 3.8 mmol/L (3.5-5.1) Chloride Level 104 mmol/L (98-107) Carbon Dioxide Level 19 mmol/L (20-31) Anion Gap 12 (5-15) Blood Urea Nitrogen 38 mg/dL (9-23) BUN/Creatinine Ratio 30.9 (10.0-20.0) Serum Glucose 104 mg/dL (74-106) Calcium Level 8.6 mg/dL (8.7-10.4) Total Bilirubin 0.3 mg/dL (0.2-1.0) Aspartate Amino Transferase (AST) 15 U/L (13-40) Alanine Aminotransferase (ALT) < 9 U/L (7-40) Alkaline Phosphatase 94 U/L (46-116) Total Protein 6.2 g/dL (5.7-8.2) Albumin 2.6 g/dL (3.2-4.8) Prothrombin Time 12.0 sec (9.3-11.8) Prothrombin Time INR 1.15 (0.9-1.15) Lactic Acid Level 1.0 mmol/L (0.4-2.0) Magnesium Level 2.2 mg/dL (1.6-2.6) Iron Level 28 ug/dL (50-170) Total Iron Binding Capacity 172 ug/dL (250-425) Percent Iron Saturation 16.3 % (15-50) Ferritin 327.3 ng/mL (10-291) Ammonia < 10 umol/L (11-32) Vitamin B12 Level 1447 pg/mL (211-911) Vitamin D 25-Hydroxy 62.0 ng/mL (30.0-100) Folic Acid 7.56 ng/mL (>5.38) Thyroid Stimulating Hormone (TSH) 4.23 uIU/mL (0.55-4.78) Test 04/23/24 20:15 04/23/24 18:00 Urine Color Light-yellow (Yellow) Urine Clarity Clear (Clear) Urine pH 6.5 (5.0-9.0) Urine Specific [place] 1.012 (1.001-1.035) Urine Protein Negative (Negative) Urine Ketones Negative (Negative) Urine Blood Trace /uL (Negative) Urine Nitrite Negative (Negative) Urine Bilirubin Negative (Negative) Urine Urobilinogen Normal mg/dL (Negative) Urine Leukocyte Esterase Negative /uL (Negative) Urine RBC 9 /hpf (0 - 4) Urine Microscopic WBC 1 /HPF (0-5) Urine Squamous Epithelial Cells None seen /hpf (<5) Urine Bacteria None seen /hpf (None Seen) Urine Glucose Normal mg/dL (Normal) Lipase 25 U/L (12-53) Other Laboratory Tests 04/29/24 05:02 04/27/24 01:45 Brief Hx & Hospital Course: Patient was admitted on 04/23/2024 for sepsis. Patient was found to have a stage IV decubitus ulcer present on admission to her [facility]. Patient has underlying dementia, pulmonary hypertension, and chronic diastolic heart failure. I did discuss plan of care with patient's son Bob, patient's granddaughter Ericka, and patient's daughter Ericka. They have decided to make patient a DNR. Patient has advanced dementia. Patient is no longer ambulatory. Patient has had a continuous decline in the past 2 years. Patient received several units of blood due to chronic anticoagulation with Owen and bleeding postoperative debridement with Dr. Fagan. dining services director met with family. Family decided on [facility] hospice. Patient will discharge home today under the care of of [facility] for comfort measures. The patient received proper medical treatment and medications. Vital signs, Imaging and Laboratory Work was monitored daily. All consults recommendations were followed as provided. There were no complaints or new complaints upon discharge, all questions and concerns were answered. Patient was advised to return to the ER or call 911 if any headaches, dizziness, shortness of breath, chest pain, bleeding, fevers, or worsening of medical condition. Patient/Family was counseled about treatment plan, medications, possible side effects, patient verbalized understanding. All questions were answered to the best of my ability. The patient symptoms improved and they are okay to be DC. Condition at Discharge: Stable Final Diagnosis/Problems List Sepsis Acute anemia Decubitus ulcer Diastolic HF Dementia end stage Pulmonary HTN Persistent A-fib Moderate protein calorie malnutrition Discharge Disposition: Hospice - Home Discharge Instruct/Medications Diet: Regular Activity: No Restrictions, As Tolerated Follow Up/Referral: Hospice Discharge Statement: "Patient was advised to return to the ER or call 911 if any headaches, dizziness, shortness of breath, chest pain, abdominal pain, bleeding, fevers, or worsening of medical condition. Patient was counseled about treatment plan, medications, possible side effects, patientverbalized understanding. All questions were answered to the best of my ability. This discharge took greater then 30 minutes in planning, reviewing documentation, counseling the patient, and discussing with other team members." ASSESSMENT ASSESSMENT Assessment Sepsis Acute anemia Decubitus ulcer Diastolic HF Dementia end stage Pulmonary Hypertension DALE CALIXTO NP Apr 29, 2024 13:42
--- NOTE | 2024-04-29 18:37 | DVHPN2 ---
Consult Progress Note Date Seen: Apr 26, 2024 Subjective Patient reports: No new complaints, Feels better (no fever or chills) Objective vital signs Vital Sign Date Time Temp Pulse Resp B/P (MAP) Pulse Ox O2 Delivery O2 Flow Rate FiO2 04/29/24 17:00 97.9 63 16 131/60 (83) 100 97.9 04/29/24 08:00 Nasal Cannula* 2 28 Total Intake and Output 04/28/24 04/28/24 04/29/24 15:00 23:00 07:00 Intake Total 50 ml 530 ml 50 ml Output Total 600 ml 200 ml Balance 50 ml -70 ml -150 ml medications PHYSICAL EXAM: - GENERAL: Alert and oriented x 3. No acute distress. Well-nourished. - EYES: EOMI. Anicteric. - HENT: Moist mucous membranes. No scleral icterus. No cervical lymphadenopathy. - LUNGS: Clear to auscultation bilaterally. No accessory muscle use. - CARDIOVASCULAR: Regular rate and rhythm. No murmur. No JVD. - ABDOMEN: Soft, non-tender and non-distended. No palpable masses. - EXTREMITIES: No edema. Non-tender.?SKIN: No rashes or lesions. Warm. - NEUROLOGIC: No focal neurological deficits. CN II-XII grossly intact, but not individually tested - PSYCHIATRIC: Cooperative. Appropriate mood and affect. laboratory and microbiology Laboratory Tests 04/29/24 05:02 04/27/24 01:45 Test 04/27/24 01:45 Range/Units Serum Glucose 104 74-106 mg/dL Problem List/Assessment/Plan Problems(with codes): (1) ESBL (extended spectrum beta-lactamase) producing bacteria infection (2) Acute abdominal pain (3) Epistaxis (4) Generalized weakness (5) Altered mental status (6) Acute on chronic diastolic heart failure (7) Fracture of distal femur (8) Hypertensive urgency (9) Anemia, unspecified (10) Elevated d-dimer (11) Elevated d-dimer (12) Decubitus ulcer (13) Dementia (14) Severe anemia Problem List/Assessment/Plan ASSESSMENT AND PLAN: ID Problem List: - Worsening stage 4 sacral decubitus ulcer - Dementia - Congestive heart failure (CHF) - Stroke - LLE cellulitis - possible pneumonia Assessment This is a female patient with a history of CHF, stroke, and advanced dementia presenting for evaluation of a worsening stage 4 sacral decubitus ulcer (measured at approximately 7 x 7 cm) with purulent discharge. She is bed bound and was recently debrided on 04/24/2024. Currently on IV vancomycin and ceftriaxone, with plan to switch to oral antibiotics pending culture results. 04/26: ESBL e.coli and enterococcus on culture Plan: - continue vancomycin - stop ceftriaxone, start ertapenem - Await and follow up on sacral wound culture results; will consider transition to oral antibiotics based on sensitivities - recommend outpatient would care, pressure offloading as outpatient - Monitor for signs of further infection or complications (fever, leukocytosis, hemodynamic changes) - Evaluate and address potential causes of edema in the left lower extremity - Ensure adequate nutrition and hydration; consider nutritional support for wound healing - Continue to manage CHF and stroke sequelae as indicated Isolation Precautions: standard Assessment and plan was discussed with the patient (when possible) and/or family as written above Plan is subject to change pending new information or diagnostics. Updates may be added as addendum. Thank you for the consult. Please contact us with any questions or concerns. Plan discussed with: Patient Dietary Evaluation Review Comments: 1. unable to supplement Tino for wound healing d/t poor kidney function without dialysis. 2. Encourage PO intake and PO supplements, either Ensure Enlive or Ensure Hi protein BID, prostat (15 g pro 100 kcal per 1 fl oz) can also be introduced as a clear liquid high protein beverage. Expected Outcomes/Goals: improved nutrition status, gradually healed bed ulcer. KEVON YE MD Apr 29, 2024 18:37
--- NOTE | 2024-04-29 18:42 | DVHPN2 ---
Consult Progress Note Date Seen: Apr 28, 2024 Subjective Patient reports: Feels better (sacral ulcer sp debridement cdi) Objective vital signs Vital Sign Date Time Temp Pulse Resp B/P (MAP) Pulse Ox O2 Delivery O2 Flow Rate FiO2 04/29/24 17:00 97.9 63 16 131/60 (83) 100 97.9 04/29/24 08:00 Nasal Cannula* 2 28 Total Intake and Output 04/28/24 04/28/24 04/29/24 15:00 23:00 07:00 Intake Total 50 ml 530 ml 50 ml Output Total 600 ml 200 ml Balance 50 ml -70 ml -150 ml medications PHYSICAL EXAM: - GENERAL: Alert and oriented x 3. No acute distress. Well-nourished. - EYES: EOMI. Anicteric. - HENT: Moist mucous membranes. No scleral icterus. No cervical lymphadenopathy. - LUNGS: Clear to auscultation bilaterally. No accessory muscle use. - CARDIOVASCULAR: Regular rate and rhythm. No murmur. No JVD. - ABDOMEN: Soft, non-tender and non-distended. No palpable masses. - EXTREMITIES: No edema. Non-tender.?SKIN: No rashes or lesions. Warm. - NEUROLOGIC: No focal neurological deficits. CN II-XII grossly intact, but not individually tested - PSYCHIATRIC: Cooperative. Appropriate mood and affect. laboratory and microbiology Laboratory Tests 04/29/24 05:02 04/27/24 01:45 Test 04/27/24 01:45 Range/Units Serum Glucose 104 74-106 mg/dL Problem List/Assessment/Plan Problem List/Assessment/Plan ASSESSMENT AND PLAN: ID Problem List: - Worsening stage 4 sacral decubitus ulcer - Dementia - Congestive heart failure (CHF) - Stroke - LLE cellulitis - possible pneumonia Assessment This is a female patient with a history of CHF, stroke, and advanced dementia presenting for evaluation of a worsening stage 4 sacral decubitus ulcer (measured at approximately 7 x 7 cm) with purulent discharge. She is bed bound and was recently debrided on 04/24/2024. Currently on IV vancomycin and ceftriaxone, with plan to switch to oral antibiotics pending culture results. 04/26: ESBL e.coli and enterococcus on culture Plan: - continue vancomycin - continue ertapenem - Await and follow up on sacral wound culture results; will consider transition to oral antibiotics based on sensitivities - recommend outpatient would care, pressure offloading as outpatient - Monitor for signs of further infection or complications (fever, leukocytosis, hemodynamic changes) - Evaluate and address potential causes of edema in the left lower extremity - Ensure adequate nutrition and hydration; consider nutritional support for wound healing - Continue to manage CHF and stroke sequelae as indicated Isolation Precautions: standard Assessment and plan was discussed with the patient (when possible) and/or family as written above Plan is subject to change pending new information or diagnostics. Updates may be added as addendum. Thank you for the consult. Please contact us with any questions or concerns. Plan discussed with: Patient Dietary Evaluation Review Comments: 1. unable to supplement Tnio for wound healing d/t poor kidney function without dialysis. 2. Encourage PO intake and PO supplements, either Ensure Enlive or Ensure Hi protein BID, prostat (15 g pro 100 kcal per 1 fl oz) can also be introduced as a clear liquid high protein beverage. Expected Outcomes/Goals: improved nutrition status, gradually healed bed ulcer. KEVON YE MD Apr 29, 2024 18:42
--- NOTE | 2024-04-29 21:45 | DVHPN2 ---
Consult Progress Note Date Seen: Apr 29, 2024 Subjective Patient reports: Other (remains minimally responsive , ulcer appears clean with mild drainage ) Objective vital signs Vital Sign Date Time Temp Pulse Resp B/P (MAP) Pulse Ox O2 Delivery O2 Flow Rate FiO2 04/29/24 17:00 97.9 63 16 131/60 (83) 100 97.9 04/29/24 08:00 Nasal Cannula* 2 28 Total Intake and Output 04/28/24 04/28/24 04/29/24 15:00 23:00 07:00 Intake Total 50 ml 530 ml 50 ml Output Total 600 ml 200 ml Balance 50 ml -70 ml -150 ml medications PHYSICAL EXAM: - GENERAL: Alert and oriented x 3. No acute distress. Well-nourished. - EYES: EOMI. Anicteric. - HENT: Moist mucous membranes. No scleral icterus. No cervical lymphadenopathy. - LUNGS: Clear to auscultation bilaterally. No accessory muscle use. - CARDIOVASCULAR: Regular rate and rhythm. No murmur. No JVD. - ABDOMEN: Soft, non-tender and non-distended. No palpable masses. - EXTREMITIES: No edema. Non-tender.?SKIN: No rashes or lesions. Warm. - NEUROLOGIC: No focal neurological deficits. CN II-XII grossly intact, but not individually tested - PSYCHIATRIC: Cooperative. Appropriate mood and affect. laboratory and microbiology Laboratory Tests 04/29/24 05:02 04/27/24 01:45 Test 04/27/24 01:45 Range/Units Serum Glucose 104 74-106 mg/dL Problem List/Assessment/Plan Problems(with codes): (1) Elevated d-dimer (2) Anemia, unspecified (3) Hypertensive urgency (4) Fracture of distal femur (5) Acute on chronic diastolic heart failure (6) Altered mental status (7) Generalized weakness (8) Acute abdominal pain (9) Epistaxis (10) Severe anemia (11) ESBL (extended spectrum beta-lactamase) producing bacteria infection Problem List/Assessment/Plan ASSESSMENT AND PLAN: ID Problem List: - Worsening stage 4 sacral decubitus ulcer - Dementia - Congestive heart failure (CHF) - Stroke - LLE cellulitis - possible pneumonia Assessment This is a female patient with a history of CHF, stroke, and advanced dementia presenting for evaluation of a worsening stage 4 sacral decubitus ulcer (measured at approximately 7 x 7 cm) with purulent discharge. She is bed bound and was recently debrided on 04/24/2024. Currently on IV vancomycin and ceftriaxone, with plan to switch to oral antibiotics pending culture results. 04/26: ESBL e.coli and enterococcus on culture 04/29: hemoglobin is 6.9 , patient is transferred to DNR and hospice care Plan: - Stop vancomycin - continue ertapenem, would recommend via IV midline however if patient is trasitioning to hospice would not reccomend any antibiotic therapy upon discharge - Await and follow up on sacral wound culture results; will consider transition to oral antibiotics based on sensitivities - recommend outpatient would care, pressure offloading as outpatient - Monitor for signs of further infection or complications (fever, leukocytosis, hemodynamic changes) - Evaluate and address potential causes of edema in the left lower extremity - Ensure adequate nutrition and hydration; consider nutritional support for wound healing - Continue to manage CHF and stroke sequelae as indicated Isolation Precautions: standard Assessment and plan was discussed with the patient (when possible) and/or family as written above Plan is subject to change pending new information or diagnostics. Updates may be added as addendum. Thank you for the consult. Please contact us with any questions or concerns. Plan discussed with: Other Dietary Evaluation Review Comments: 1. unable to supplement Tino for wound healing d/t poor kidney function without dialysis. 2. Encourage PO intake and PO supplements, either Ensure Enlive or Ensure Hi protein BID, prostat (15 g pro 100 kcal per 1 fl oz) can also be introduced as a clear liquid high protein beverage. Expected Outcomes/Goals: improved nutrition status, gradually healed bed ulcer. KEVON YE MD Apr 29, 2024 21:44
--- NOTE | 2024-04-29 23:48 | DVHPN2 ---
Progress Note - Dictate Date Seen: Apr 29, 2024 Medical Necessity Reason Pt with a Central, PICC or Fol: Yes The following are medically ne: Garcia Catheter Reason for garcia catheter: Strict I&O Subjective Patient seen and examined at bedside. Remains on supplemental oxygen Overnight events reviewed. vital signs Vital Sign Date Time Temp Pulse Resp B/P (MAP) Pulse Ox O2 Delivery O2 Flow Rate FiO2 04/29/24 17:00 97.9 63 16 131/60 (83) 100 97.9 04/29/24 08:00 Nasal Cannula* 2 28 Total Intake and Output 04/28/24 04/28/24 04/29/24 15:00 23:00 07:00 Intake Total 50 ml 530 ml 50 ml Output Total 600 ml 200 ml Balance 50 ml -70 ml -150 ml objective Gen.: Patient lying in bed in no apparent distress. On supplemental oxygen. Head: Normocephalic, atraumatic. Eyes: EOMI/PERRLA. Ears: Normal hearing. Normal anatomy. Neck/trachea: Trachea midline, supple. Nose: Normal external anatomy. Mouth: Moist mucous membranes. Chest: Decreased air entry bilaterally. No wheezing or rhonchi. Cardiovascular: Positive S1, positive S2. Regular rate and rhythm. Abdomen: Positive bowel sounds in all 4 quadrants. Soft, non-tender, non- distended. : Deferred. Rectal: Deferred. Skin: Warm, dry. Intact. Extremities: 2+ radial pulses bilaterally. No lower extremity edema. Neuro: Awake, alert, oriented x2. No gross motor or sensory deficits. Cranial nerves II through XII intact. Gait not assessed. laboratory and microbiology Laboratory Tests 04/29/24 05:02 04/27/24 01:45 Test 04/27/24 01:45 Range/Units Serum Glucose 104 74-106 mg/dL Assessment/Plan Impression: Acute hypoxic respiratory failure Dependence on supplemental oxygen Pulmonary hypertension Pneumonia, likely gram negative Atelectasis Hx of nicotine dependence Events: Remains on supplemental oxygen, 2 LPM NC Taper O2 as tolerated Continue antibiotics Incentive spirometry Wound care Pain control Avoid oversedation Iron supplementation Monitor hemoglobin Maintain euvolemia Monitor renal function Monitor ins and outs Disposition: Hospice. Labs and imaging reviewed. Rest of plan as noted below. Plan: Supplemental oxygen Titrate to keep O2 sats above 92%. Antibiotics Incentive spirometry Pain control Avoid oversedation Wound care S/p wound debridement Monitor renal function. Monitor electrolytes. Supplement as necessary. Monitor ins and outs. Tolerating PO diet. DVT prophylaxis. Prognosis: Guarded given patient's multiple co-morbidities. Rest of plan per hospitalist and other consultants. Thank you, CHELO Marcos, for allowing me to participate in this patient's care. Further recommendations will depend on the patient's clinical course. Please do not hesitate to contact me if you have any questions or concerns. This medical document was created using an electronic medical record system with [employer] dictation system. Although these documentations are being carefully reviewed, there may still be some phonetic and typographical changes. The errors are purely typographical, due to imperfection on the software program, and do not reflect any compromise in the patient's medical care. Dietary Evaluation Review Comments: 1. unable to supplement Tino for wound healing d/t poor kidney function without dialysis. 2. Encourage PO intake and PO supplements, either Ensure Enlive or Ensure Hi protein BID, prostat (15 g pro 100 kcal per 1 fl oz) can also be introduced as a clear liquid high protein beverage. Expected Outcomes/Goals: improved nutrition status, gradually healed bed ulcer. Plan discussed with: Patient, Other (BLAKE Myers) BIJU TALLEY MD Apr 29, 2024 23:48
== END 2024-04-29 17:50 | disposition hospice, home (50) | DRG 853 ==
LOC: EDBD 16:20 → ER 16:20 → OVERFLOW 23:45 → WEST WING 04-24 09:03 → CENTRAL 04-27 19:50 → TELE-CENTR 04-27 21:55
PROVIDERS: ADMIT Internal Medicine; ATTEND Nurse Practitioner
PROC: 0QB10ZZ Excision of Sacrum, Open Approach (ICD-10-PCS; principal; 2024-04-24 13:08)
PROC: 30233N1 Transfusion of Nonautologous Red Blood Cells into Peripheral Vein, Percutaneous Approach (ICD-10-PCS; 2024-04-27)
DX: A41.9 Sepsis, unspecified organism (principal); E43 Unspecified severe protein-calorie malnutrition; L89.154 Pressure ulcer of sacral region, stage 4; J15.69 Pneumonia due to other Gram-negative bacteria; L03.116 Cellulitis of left lower limb; I48.19 Other persistent atrial fibrillation; J98.11 Atelectasis; I50.32 Chronic diastolic (congestive) heart failure; N17.9 Acute kidney failure, unspecified; Z66 Do not resuscitate; F03.C0 Unspecified dementia, severe, without behavioral disturbance, psychotic disturbance, mood disturbance, and anxiety; I11.0 Hypertensive heart disease with heart failure; I27.20 Pulmonary hypertension, unspecified; D64.9 Anemia, unspecified; E11.42 Type 2 diabetes mellitus with diabetic polyneuropathy; Z96.653 Presence of artificial knee joint, bilateral; E78.5 Hyperlipidemia, unspecified; K59.00 Constipation, unspecified; M06.9 Rheumatoid arthritis, unspecified; Z51.5 Encounter for palliative care; Z68.24 Body mass index [BMI] 24.0-24.9, adult; Z74.01 Bed confinement status; Z79.01 Long term (current) use of anticoagulants; Z79.899 Other long term (current) drug therapy; Z86.73 Personal history of transient ischemic attack (TIA), and cerebral infarction without residual deficits; Z87.891 Personal history of nicotine dependence; Z91.199 Patient's noncompliance with other medical treatment and regimen due to unspecified reason; Z99.81 Dependence on supplemental oxygen
CPT/HCPCS: 36415; 70450; 71045; 74176; 80048; 80053; 80202; 81001; 82140; 82306; 82565; 82607; 82728; 82746; 83540; 83550; 83605; 83690; 83735; 84443; 85018; 85025; 85610; 86850; 86900; 86901; 86920; 87040; 87070; 87077; 87081; 87186; 87205; 92610; 93005; 93306; 97110; 97163; G0378; J1100; J1335; J2250; J2470; J2543; J2704